=== PATIENT | male | born 1965 | race Caucasian/White ===

== ENCOUNTER 2019-11-27 08:56 | Outpatient (RCR) | payer OTHER, SELFPAY ==
--- NOTE | 2019-11-27 09:41 | PTOPEVAL ---
Thank you for referring this patient to [facility] [place]. Please review, sign, date and return this plan of care [facility]. I agree with and certify that the following plan of care is medically necessary. Referring Physician Date Admitting Provider: Attending Provider: PHYSICIAN NOT ON STAFF Referring Provider: *PT Outpatient Evaluation Start: 11/27/19 09:10 Freq: Status: Active Protocol: Document 11/27/19 09:10 Bunny (Rec: 11/27/19 09:[address] [facility] [id number]) Therapy Assessment Status Assessment Status Assessment Status Evaluation Evaluation Information Problem Diagnosis s/p L4/5 and L5/S1 laminectomy Onset 11/08/19 Additional Evaluation Detail oswestry = 34% Subjective Information patient reports he has been Query Text:As Reported By Patient/ having pain in the low back Family since 01/23/19. he reports he did have a laminectomy of the L4/5 and L5/S1 on 11/08/19. he reports since he woke up from surgery he has noticed improvements in his quality of life and less pain/symptoms in the L LE. he reports he is now coming to therapy for improved core strengthening and some residual pain in the back. he reports he has increased pain with lifting, and increased activities. he reports he is on a 10lb lifting restriction currently. he reports he was having some residual drainage of the Lumbar incision and had an aspiration of the incision last week. Prior Level of Function Comments Additional Prior Level of Function priro to surgery, patient Comments reports he was having numbness in the L LE into the big toe and pain in the low back that limited his activity and quality of life. he reports he is not working currently. Pain Assessment Timing of Pain Assessment Timing of Pain Assessment Assessment Pain Scale Pain Scale Used Numeric (1 - 10) Self Report Pain Assessment Lower Back Reported Pain Level 4 Pain Description Tightness Pain Frequency Acute,Continuous Current Pain Intensity
--- NOTE | 2019-12-11 10:32 | PCPTNOTE ---
patient called and cancelled appt. HENRIK
--- NOTE | 2019-12-13 09:16 | PCPTNOTE ---
12/13/19- pt cancelled apt today. -HM
== END 2019-12-03 17:00 | disposition home or self-care (01) ==
LOC: CHSPT 08:56
DX: Z98.890 Other specified postprocedural states (principal)
CPT/HCPCS: 97014; 97110; 97161; G0283

== ENCOUNTER 2020-04-23 14:52 | Outpatient (RCR) | payer OTHER, SELFPAY ==
--- NOTE | 2020-04-23 15:44 | PTOPEVAL ---
Thank you for referring Ney Saucedo to [facility]. Please review, sign, date and return this plan of care [facility]. I agree with and certify that the following plan of care is medically necessary. Referring Physician Date Admitting Provider: Attending Provider: PHYSICIAN NOT ON STAFF Referring Provider: *PT Outpatient Evaluation Start: 04/23/20 14:59 Freq: Status: Active Protocol: Document 04/23/20 14:59 RUBEN (Rec: 04/23/20 15:33 RUBEN [email or web address]) Therapy Assessment Status Assessment Status Assessment Status Evaluation Evaluation Information Problem Diagnosis s/p left shoulder arthroscopy, rotator cuiff repair and bicep tenodesis Onset 03/07/20 Subjective Information Pt. reports that he underwent Query Text:As Reported By Patient/ rotator cuff repair on 03/07/20 Family . He states that he was taken out of his sling last week. He has been using a CPM at home. He reports that pain is present, but not intense at this time. He states that he can sleep better since surgery . He states that he is no longer taking pain medication. Pt. reports that his goal is to regain normal mobility. 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 Hand Dominance Right Activity of Daily Living Ability Independent Indoor/Home Mobility Independent Community Mobility Independent Stairs Ability Independent Functional Cognition (Planning, Shopping Independent , Taking Medications) Cooking Yes Cleaning Yes Laundry Yes Shopping Yes Driving Yes Pain Assessment Pain Scale Pain Scale Used Numeric (1 - 10) Self Report Pain Assessment Left Shoulder(s) Reported Pain Level 3 Pain Description Aching Pain Frequency Continuous Pain Score Pain Score 3: Self Report Upper Extremity Range of Motion General Upper Extremity Range of Motion Gross Upper Extremity Range of Motion right shoulder flexion 160 Comments left shoulder flexion 132 right shoulder ER 80 left shoulder ER 25 right shoulder IR 72
--- NOTE | 2020-05-19 15:31 | PCPTNOTE ---
patient called and cancelled appt due to not feeling well. HENRIK
== END 2020-06-11 18:00 | disposition home or self-care (01) ==
LOC: CHSPT 14:52
DX: Z47.89 Encounter for other orthopedic aftercare (principal)
CPT/HCPCS: 97014; 97110; 97161; G0283

== ENCOUNTER 2021-09-03 12:35 | Outpatient (CLI) | payer OTHER, SELFPAY ==
[2021-09-03 13:25] LABS: SARS-CoV-2 Ag Negative (Negative)
== END 2021-09-03 12:36 | disposition home or self-care (01) ==
LOC: CHSLAB 12:41
PROVIDERS: PCP Internal Medicine; Visit Provider Internal Medicine
DX: J06.9 Acute upper respiratory infection, unspecified (principal)
CPT/HCPCS: 87426; C9803

== ENCOUNTER 2021-11-09 09:12 | Outpatient (CLI) | payer OTHER, SELFPAY ==
--- NOTE | ~2021-11-09 | XR_ITS ---
XR chest 2V DATE: 11/09/2021 10:00 INDICATION: Heartburn, nausea, chronic migraine headache TECHNIQUE: 2 views COMPARISON: 11/15/2016 2 view chest FINDINGS: Normal heart size. No hilar or mediastinal enlargement. No pulmonary infiltrate or consol idation, pulmonary mass lesion or pneumothorax. No pleural effusion. Status post lower cervical spine anterior surgical fusion. IMPRESSION: No active cardiopulmonary disease Reviewed, dictated and finalized at location B. LANE P[employer]OT PHOTOGRAMMETRY
--- NOTE | ~2021-11-09 | XR_ITS ---
EXAMINATION: XR wrist RT min 3V INDICATION: Right wrist pain TECHNIQUE: Four views of the right wrist are obtained. COMPARISON: None available FINDINGS: There is subtle heterotopic ossification lateral to the distal radius. Bone alignment is no rmal. 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 IMPRESSION: 1. Subtle heterotopic ossification lateral to the distal wrist which could reflect avulsion injury. Reviewed, dictated and finalized at location A. S SMOOTHER IMPRESSION: 1. Subtle heterotopic ossification lateral to the distal wrist which could refl ect avulsion injury.
[2021-11-09 09:25] LABS: Basophils Absolute Auto 0.06 K/mm3 (0.00-0.10); Basophils Percent Auto 0.4 % (0.0-1.0); Eosinophils Absolute Auto 0.06 K/mm3 (0.02-0.50); Eosinophils Percent Auto 0.4 % (1.0-6.0); Hematocrit 46.4 % (40.0-54.0); Hemoglobin 16.7 g/dL (14.0-18.0); Immature Granulocyte Absolute 0.13 K/mm3 (0.00-0.00); Immature Granulocyte Percent A 0.8 % (0.0-0.0); Lymphocytes Absolute Auto 2.66 K/mm3 (1.10-4.50); Lymphocytes Percent Auto 15.8 % (18.0-42.0); Mean Corpuscular Hemoglobin 32.7 pg (27.0-31.0); Mean Corpuscular Volume 90.8 fL (78.0-102.0); Mean Platelet Volume 10.8 fl (8.7-11.0); Monocytes Absolute Auto 1.24 K/mm3 (0.10-0.90); Monocytes Percent Auto 7.4 % (2.0-11.0); Neutrophils Absolute Auto 12.7 K/mm3 (1.7-7.2); Neutrophils Percent Auto 75.2 % (50.0-70.0); Platelet Count Result 242 K/mm3 (150-420); Red Blood Count 5.11 M/mm3 (4.70-6.10); Red Cell Distribution Width 12.6 % (11.6-14.4); White Blood Count 16.9 K/mm3 (4.8-10.8)
--- NOTE | 2021-11-09 09:30 | ECG_ITS ---
Measurements Intervals [place] Rate: 76 P: 67 NE: 132 QRS: 1 QRSD: 93 T: 79 QT: 378 QTc: 428 Interpretive Statements SINUS RHYTHM EARLY PRECORDIAL R/S TRANSITION MINIMAL Q WAVES- HIGH LATERAL LEADS BORDERLINE ST-T WAVE ABNORMALITY- DIFFUSE LEADS BASELINE WANDER- II, III, AVR, AVL, AVF, V1-V3 BORDERLINE ECG Electronically Signed On 11-09-2021 14:01:12 AQUATIC LABORER by Morris Hurd D.O.
[2021-11-09 09:48] LABS: D Dimer 0.46 mg/L (0.19-0.50)
[2021-11-09 09:52] LABS: Alanine Aminotransferase 117 U/L (16-63); Albumin Level 3.7 g/dL (3.4-5.0); Alkaline Phosphatase 67 U/L (46-116); Anion Gap 11 mmol/L (8-16); Aspartate Amino Transferase 55 U/L (15-37); Blood Urea Nitrogen 15 mg/dL (7-18); Calcium 9.4 mg/dL (8.5-10.1); Carbon Dioxide 28 mmol/L (21-32); Chloride 99 mmol/L (98-108); Creatine Kinase 102 U/L (39-308); Estimated Glomerular Filt Rate 58; Glucose 120 mg/dL (70-99); NT Pro B Type Natriuretic Pept 59 pg/mL (0-125); Osmolality Calculated 287 mOsm/kg (285-295); Potassium 3.6 mmol/L (3.5-5.1); Sodium 138 mmol/L (136-145); Total Protein 8.6 g/dL (6.4-8.2); Troponin I 6.1 ng/L (0.00-60.4)
== END 2021-11-09 09:13 | disposition home or self-care (01) ==
LOC: CHSIMG 09:14
PROVIDERS: PCP Internal Medicine; Visit Provider Internal Medicine
DX: R07.9 Chest pain, unspecified (principal); R60.9 Edema, unspecified; M25.531 Pain in right wrist
CPT/HCPCS: 36415; 71046; 73110; 80053; 82550; 82553; 83880; 84484; 85025; 85380; 93005

== ENCOUNTER 2021-11-10 11:20 | Observation (INO) | payer OTHER, SELFPAY ==
--- NOTE | ~2021-11-10 | US_ITS ---
EXAMINATION: US abdomen limited DATE: 11/11/2021 08:19 INDICATION: Epigastric discomfort. TECHNIQUE: Multiple grayscale and Doppler ultrasound images of the abdomen were obtained. COMPARISON: Ultrasound 03/10/2012 FINDINGS: The pancreas is obscured by bowel gas. There is diffuse hepatic steatosis. There is normal flow in main portal vein. The gallbladder is normal in size. No gallstones or gallbladder wall thicke suzy. There was no sonographic Ramirez sign. The common duct is normal and measures 6 mm. IMPRESSION: 1. Diffuse hepatic steatosis. Reviewed, dictated and finalized at location A. OTIONS DIRECTOR
--- NOTE | ~2021-11-10 | XR_ITS ---
EXAMINATION: XR chest 2V DATE: 11/10/2021 15:05 INDICATION: Cough. Headache. TECHNIQUE: Frontal and lateral views of the chest were obtained. COMPARISON: Chest 2 views 11/09/2021, chest CT 11/16/2016 FINDINGS: The chest demonstrates clear lungs without pneumonia, pleural effusion, or pneumothorax. Th e heart size is normal. There are changes of anterior fusion procedure in cervical spine. IMPRESSION: 1. No acute cardiopulmonary disease. Reviewed, dictated and finalized at location A. JEWELRY SALES ASSOCIATE
--- NOTE | ~2021-11-10 | CT_ITS ---
EXAMINATION: CT brain wo con INDICATION: Headache COMPARISON: 09/05/2018 TECHNIQUE: Standard unenhanced head CT. The dose-length product (DLP) was 605.33 mGy-cm. The mA was a djusted according to patient size. Iterative reconstruction technique was employed. FINDINGS: There is no intracranial hemorrhage, acute infarction, or abnormal mass lesion. The ventric les are normal. There is no abnormal mass effect or midline shift. The kennedy-white matter differentiat ion is normal. The basal cisterns are patent. Hours The orbits are normal. The paranasal sinuses, mas toids and calvarium are normal. IMPRESSION: 1. No acute intracranial abnormality. Reviewed, dictated and finalized at location A. RIG DRILLER
[2021-11-10 11:22] VITALS: BP 152/84; PULSE 79; RESP 18; TEMP 36.4; O2SAT 99
--- NOTE | 2021-11-10 12:59 | ED.HA ---
HPI - Headache General Chief Complaint: Headache Stated Complaint: migraines Time Seen by Provider: 11/10/21 12:50 Source: patient Mode of arrival: ambulatory Limitations: no limitations History of Present Illness HPI Narrative: Patient is a 56-year-old male complaining of a migraine headache that started last week after he was placed on Ozempic for weight loss. Patient states that he was advised by his PCP to stop the Ozempic and his migraine resolved, but this week his doctor said to start on a lower dose and migraine recurred again, so he was advised to completely stop it. Patient states that he has a history of migraines, and this is her typical headache. Patient denies any speech or visual disturbance, focal weakness or numbness, unsteady gait, dizziness, neck pain or stiffness, fever or chills. Patient denies any chest pain, shortness of breath, nausea, vomiting or diaphoresis. Related Data Home Medications Medication Instructions Recorded Confirmed allopurinol 300 mg PO DAILY 10/22/21 10/22/21 duloxetine 30 mg PO DAILY 10/22/21 10/22/21 erenumab-aooe [Aimovig 140 mg SUBCUT WEEKLY 10/22/21 10/22/21 Autoinjector] irbesartan 300 mg PO DAILY 10/22/21 10/22/21 meloxicam 7.5 mg PO DAILY 10/22/21 10/22/21 semaglutide [Ozempic] 0.25 mg SUBCUT WEEKLY 10/22/21 10/22/21 sertraline 100 mg PO DAILY 10/22/21 10/22/21 Allergies Allergy/AdvReac Type Severity Reaction Status Date / Time meperidine Allergy Severe Anaphylactic Verified 10/22/21 14:30 Shock morphine AdvReac Mild Nausea and Verified 10/22/21 14:30 Vomiting Review of Systems Review of Systems: All systems reviewed & are unremarkable except as noted in HPI and below Constitutional: Constitutional: Denies body ache(s), Denies chills, Denies excessive sweating, Denies fatigue, Denies fever(s), Denies headache(s), Denies lethargy, Denies malaise, Denies weakness and Denies weight loss Eyes: Eyes: Denies blurry vision, Denies change in vision and Denies loss of vision ENT: Denies dizziness, Denies ear discharge, Denies headache(s), Denies lip swelling, Denies epistaxis, Denies nasal congestion, Denies neck pain, Denies throat swelling and Denies tongue swelling Cardiovascular: Cardiovascular: Denies chest pain, Denies chest pain at rest, Denies chest pain with activity, Denies diaphoresis, Denies rapid heart rate, Denies edema, Denies irregular heart rhythm, Denies lightheadedness, Denies palpitations, Denies dyspnea and Denies dyspnea on exertion Respiratory: Respiratory: Denies chest congestion, Denies cough, Denies hemoptysis, Denies dyspnea and Denies dyspnea on exertion Gastrointestinal: Gastrointestinal: Denies abdominal pain, Denies melena, Denies hematochezia, Denies diarrhea, Denies nausea, Denies vomiting and Denies hematemesis Musculoskeletal: Musculoskeletal: Denies abnormal gait, Denies deformity, Denies joint swelling, Denies limited range of motion, Denies neck pain and Denies numbness Neurologic: Denies Abnormal speech present, Denies abnormal gait, Denies confusion, Denies dizziness, Denies focal weakness, Denies loss of vision, Denies numbness, Denies Other visual disturbances, Denies Sensory deficit (Neuro) and Denies weakness Psychiatric: Psychiatric: Denies confusion, Denies depression, Denies auditory hallucinations, Denies homicidal ideation and Denies suicidal ideation Endocrine: Endocrine: Denies cold intolerance, Denies excessive sweating, Denies fatigue, Denies heat intolerance and Denies palpitations Hematologic/Lymphatic: Hematologic/Lymphatic: Denies easy bleeding and Denies easy bruising Allergic/Immunologic: Allergic/Immunologic: Denies lip swelling, Denies throat swelling and Denies tongue swelling [facility] Social History Social History Smoking status: Never smoker Alcohol intake: current Drinks per week: 1 Substance use: never Substance use type: does not use Spiritu
[2021-11-10] MEDS: diphenhydrAMINE HCl INJ 50 MG/ML VIAL 25 MG IV PUSH (13:08)
[2021-11-10] MEDS: LACTATED RINGERS 1,000 ML 999 ML IV CONT (13:08)
[2021-11-10] MEDS: METOCLOPRAMIDE HCL INJ 10 MG/2 ML VIAL IV PUSH (13:09)
[2021-11-10 13:39] LABS: Basophils Absolute Auto 0.1 K/mm3 (0.0-0.1); Basophils Percent Auto 0.4 % (0.2-1.2); Eosinophils Percent Auto 0.2 % (0-4.4); Hematocrit 43.4 % (42.0-52.0); Hemoglobin 15.3 g/dL (14.0-18.0); Immature Granulocyte Percent A 0.8 % (0-0.5); Lymphocytes Absolute Auto 1.98 K/mm3 (0.9-3.2); Lymphocytes Percent Auto 15.8 % (18.3-44.2); Mean Corpuscular HGB Conc 35.3 g/dl (32-36); Mean Corpuscular Volume 93.7 fl (80-100); Mean Platelet Volume 11.2 fl (7.4-10.4); Monocytes Absolute Auto 0.6 K/mm3 (0.1-0.6); Monocytes Percent Auto 4.4 % (2.6-8.5); Neutrophils Absolute Auto 9.9 K/mm3 (1.3-6.7); Neutrophils Percent Auto 78.4 % (45.5-73.1); Platelet Count Result 203 k/mm3 (150-375); Red Blood Count 4.63 M/mm3 (4.6-6.20); Red Cell Distribution Width 13.1 % (11.5-14.5); White Blood Count 12.6 K/mm3 (4.5-10.0)
[2021-11-10 13:56] LABS: Alanine Aminotransferase 116 U/L (4-50); Albumin Level 4.3 g/dL (3.5-5.1); Alkaline Phosphatase 65 U/L (38-126); Anion Gap 9 mmol/L (8-16); Aspartate Amino Transferase 68 U/L (17-59); Blood Urea Nitrogen 18 mg/dL (9-20); Calcium 9.3 mg/dL (8.4-10.2); Carbon Dioxide 29 mmol/L (22-30); Chloride 101 mmol/L (98-107); Estimated CRCL calculation 99 ml/min; Estimated Glomerular Filt Rate > 60; Glucose 107 mg/dL (65-110); Potassium 4.4 mmol/L (3.4-5.0); Sodium 139 mmol/L (137-145)
[2021-11-10] MEDS: KETOROLAC 30 MG/ML VIAL (*BKC) IV PUSH (14:11)
--- NOTE | 2021-11-10 14:52 | ECG_ITS ---
Measurements Intervals [place] Rate: 63 P: 59 MO: 148 QRS: 5 QRSD: 90 T: 53 QT: 416 QTc: 428 Interpretive Statements SINUS RHYTHM EARLY PRECORDIAL R/S TRANSITION BORDERLINE ST-T WAVE ABNORMALITY- HIGH LATERAL LEADS BASELINE ARTIFACT- I, III, AVR, AVL, AVF BORDERLINE ECG Electronically Signed On 11-10-2021 15:45:38 FIELD SEISMOLOGIST by Morris Hurd D.O.
[2021-11-10 15:53] LABS: Troponin I < 0.012 ng/mL (0.000-0.034)
[2021-11-10 16:30] LABS: Troponin I < 0.012 ng/mL (0.000-0.034)
[2021-11-10 18:05] VITALS: BP 152/76; PULSE 78; RESP 18; O2SAT 99
[2021-11-10 19:21] LABS: Troponin I < 0.012 ng/mL (0.000-0.034)
[2021-11-10 19:36] VITALS: BP 152/91; PULSE 63; RESP 18; O2SAT 99
[2021-11-10 21:00] VITALS: PULSE 63; RESP 18; O2SAT 99; BMI 57.3
--- NOTE | 2021-11-10 21:05 | ADMGEN ---
This patient, Ney Saucedo, was admitted to [facility] as an IMU overflow at 2049. Patient/family oriented to hospital policies and general routines including ID bracelet, bed and alarms, visiting hours, pain management, procedures, bathroom and other care routines, personal items, smoking policy, room service/diet, and visiting hours. Information on how to activate the Rapid Response Team has been discussed. Patient/Family are encouraged to report perceived risks to care and to ask questions if they do not understand what they are told or what they should do.
[2021-11-10 22:00] VITALS: PULSE 62
[2021-11-10] MEDS: LIDOCAINE HCL 2% VISC SOLN 15 ML UDC PO (22:08)
[2021-11-10] MEDS: MAG HYDROX/AL HYDROX/SIMETH 30 ML UDC PO (22:08)
[2021-11-10] MEDS: BELLADONNA ALK/PHENOB ELIXIR 10 ML PO (22:08)
[2021-11-10] MEDS: LACTATED RINGERS 1,000 ML 125 ML IV CONT (22:11)
--- NOTE | 2021-11-10 23:25 | PM.IMHP ---
H&P: HPI History of Present Illness Date/Time: 11/10/21 23:25 this is a 56-year-old obese patient that started taking Ozempic in August for weight loss. Every 2 weeks able to increase his dosages. And the patient stated that the increased his dose recently and he had an upset stomach from that dose. He did go to his primary doctor and explained this to his physician. However they decided to try another dose to see if the Ozempic would upset the stomach again. The patient stated that he got sick to stomach just within the 1st couple hours after receiving Ozempic. The patient is also complaining of a migraine headache that started this past week after being placed on higher dose of Ozempic. The patient was given a GI cocktail which did not help much at all. The patient stated he received Toradol in the emergency room which did seem to help some. The patient is on Pepcid and pantoprazole daily. The patient's cardiac enzymes are negative x3. The patient has epigastric discomfort as well as tenderness. Chest x-ray was read as no acute cardiopulmonary disease. Head CT was obtained since the patient was complaining about a migraine. His head CT showed no acute intracranial abnormality. Yesterday the patient had an x-ray of his right wrist shows subtle heterotopic ossification lateral to the distal wrist which could reflect evolution injury. His white count is down to 12.6 from 16.9 yesterday. The patient's EKG was read as early precordial RS transition. Borderline ST T wave abnormality. The patient is being admitted to observation status on the date of service 11/10/2021 Chief Complaint: Epigastric pain Review of Systems Review of Systems: All systems reviewed & are unremarkable except as noted in HPI and below Constitutional: Constitutional: Reports as per HPI and Reports no additional constitutional complaints Eyes: Eyes: Reports as per HPI and Reports no additional eye complaints ENT: Reports system reviewed and no additional complaints, except as documented and Reports Normal hearing present Cardiovascular: Cardiovascular: Reports no additional cardiovascular complaints Respiratory: Respiratory: Reports no additional respiratory complaints and Reports no additional respiratory complaints Gastrointestinal: Gastrointestinal: Reports as per HPI and Reports no additional gastrointestinal complaints Musculoskeletal: Musculoskeletal: Reports no additional musculoskeletal complaints Integumentary/Breasts: Skin/Breast: Reports system reviewed and no additional complaints, except as docu and Reports as per HPI Neurologic: Reports system reviewed and no additional complaints, except as documented, Reports as per HPI and Reports Normal hearing present Psychiatric: Psychiatric: Reports no additional psychiatric complaints and Reports as per HPI Endocrine: Endocrine: Reports no additional endocrine complaints Hematologic/Lymphatic: Hematologic/Lymphatic: Reports no additional hematologic/lymphatic complaints Allergic/Immunologic: Allergic/Immunologic: Reports no additional allergic/immunologic complaints [facility] Past Medical History Medical History (Updated 11/10/21 @ 23:36 by Cici Gramajo NP) Chronic GERD Depression with anxiety Gout Hypertension Obesity BMI 57.4 Obstructive sleep apnea Surgical History Surgical History (Updated 11/10/21 @ 23:35 by Cici Gramajo NP) H/O cervical spine surgery H/O rhinoplasty History of tonsillectomy Total knee replacement status Family History Family History Mother Colon cancer Mitral valve replaced Hypertension Macular degeneration Father Malignant neoplasm of prostate Social History Social History (Updated 11/10/21 @ 23:37 by Cici Gramajo NP) Social History: The patient lives with his and has 1 child. 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
[2021-11-10 23:50] VITALS: O2SAT 97
[2021-11-11] VITALS (16 sets, daily range): BP systolic 110–153; BP diastolic 71–95; PULSE 60–105; RESP 13–94; TEMP 35.7–36.9; O2SAT 24–97
[2021-11-11] MEDS: KETOROLAC 15 MG/ML VIAL (*BKC) IV PUSH (00:20)
[2021-11-11] MEDS: LACTATED RINGERS 1,000 ML 125 ML IV CONT ×2 (06:01→13:18)
[2021-11-11 06:22] LABS: Basophils Absolute Auto 0.1 K/mm3 (0.0-0.1); Basophils Percent Auto 0.6 % (0.2-1.2); Eosinophils Absolute Auto 0.1 K/mm3 (0-0.3); Eosinophils Percent Auto 0.5 % (0-4.4); Hematocrit 41.5 % (42.0-52.0); Hemoglobin 14.7 g/dL (14.0-18.0); Immature Granulocyte Percent A 0.9 % (0-0.5); Lymphocytes Absolute Auto 2.93 K/mm3 (0.9-3.2); Lymphocytes Percent Auto 26.4 % (18.3-44.2); Mean Corpuscular HGB Conc 35.4 g/dl (32-36); Mean Corpuscular Hemoglobin 33.3 pg (26-34); Mean Corpuscular Volume 93.9 fl (80-100); Mean Platelet Volume 10.8 fl (7.4-10.4); Monocytes Percent Auto 8.7 % (2.6-8.5); Neutrophils Percent Auto 62.9 % (45.5-73.1); Platelet Count Result 175 k/mm3 (150-375); Red Blood Count 4.42 M/mm3 (4.6-6.20); Red Cell Distribution Width 13.1 % (11.5-14.5); White Blood Count 11.1 K/mm3 (4.5-10.0)
[2021-11-11 06:38] LABS: Lactic Acid Reflex 0.8 mmol/L (0.7-2.1)
[2021-11-11 06:42] LABS: Alanine Aminotransferase 135 U/L (4-50); Alkaline Phosphatase 61 U/L (38-126); Anion Gap 12 mmol/L (8-16); Aspartate Amino Transferase 87 U/L (17-59); Bilirubin,Total 1.4 mg/dL (0.2-1.3); Blood Urea Nitrogen 23 mg/dL (9-20); Calcium 8.9 mg/dL (8.4-10.2); Carbon Dioxide 25 mmol/L (22-30); Chloride 101 mmol/L (98-107); Estimated CRCL calculation 99 ml/min; Estimated Glomerular Filt Rate > 60; Glucose 105 mg/dL (65-110); Lactate Dehydrogenase 412 U/L (313-618); Lipase 123 U/L (23-300); Magnesium 2.3 mg/dL (1.6-2.3); Potassium 3.8 mmol/L (3.4-5.0); Sodium 138 mmol/L (137-145)
[2021-11-11 06:43] LABS: D Dimer < 0.27 ug/mL (<0.48)
[2021-11-11 08:06] LABS: Free T4 Free Thyroxine Reflex 0.99 ng/dL (0.78-2.19)
[2021-11-11 09:00] LABS: Total Triiodothyronine (T3) 1.22 NG/ML (0.97-1.69)
[2021-11-11] MEDS: PANTOPRAZOLE SODIUM IV 40 MG VIAL IV PUSH ×2 (09:21→20:47)
[2021-11-11] MEDS: allopurinoL 300 MG TABLET PO (09:22)
[2021-11-11] MEDS: DULoxetine HCL 30 MG CAPSULE.DR PO (09:22)
[2021-11-11] MEDS: FAMOTIDINE 20 MG TABLET 40 MG PO (09:22)
[2021-11-11] MEDS: predniSONE 20 MG TABLET PO (09:22)
[2021-11-11] MEDS: SERTRALINE HCL 50 MG TABLET 100 MG PO (09:22)
[2021-11-11] MEDS: IRBESARTAN 150 MG TABLET 300 MG PO (09:22)
[2021-11-11] MEDS: ENOXAPARIN 40 MG/0.4 ML SYRINGE SUB-Q (09:23)
[2021-11-11] MEDS: HYDROmorphone HCL INJ (*CRX) 1 MG/ML SYR IV PUSH (09:33)
[2021-11-11] MEDS: CALCIUM CARBONATE (TUMS) 500 MG (200 MG ELEMENTAL) PO ×2 (09:33→16:01)
[2021-11-11] MEDS: ACETAMINOPHEN/BUTALBITAL/CAFFEINE 325-50-40 MG TABLET (FIORICET) 1 TAB PO (13:18)
--- NOTE | 2021-11-11 14:07 | PM.IMPN ---
Progress Note: A&P Assessment and Plan (1) Chest pain: Qualifiers: Chest pain type: unspecified Qualified Code(s): R07.9 - Chest pain, unspecified Code(s): R07.9 - Chest pain, unspecified Status: Acute Assessment and Plan: Cardiac enzymes are negative. Pt complains of heart burn heaviness in chest order IV reglan iv protonix Consult cardiology as pt had Abnl EKG on admission Pt had GI cocktail without relief (2) Migraine: Qualifiers: Intractability: not intractable Migraine type: unspecified Status migrainosus presence: without status migrainosus Qualified Code(s): G43.909 - Migraine, unspecified, not intractable, without status migrainosus Code(s): G43.909 - Migraine, unspecified, not intractable, without status migrainosus Status: Acute Assessment and Plan: Pt had toradol and dilaudid without relief (3) Gout: Code(s): M10.9 - Gout, unspecified Status: Chronic Assessment and Plan: Continue with allopurinol (4) Obesity: Code(s): E66.9 - Obesity, unspecified Status: Chronic Assessment and Plan: Going to hold Ozempic for now. (5) Chronic GERD: Code(s): K21.9 - Gastro-esophageal reflux disease without esophagitis Status: Chronic Assessment and Plan: Continue with pantoprazole. (6) Obstructive sleep apnea: Code(s): G47.33 - Obstructive sleep apnea (adult) (pediatric) Status: Chronic Assessment and Plan: Auto titrate CPAP (7) Depression with anxiety: Code(s): F41.8 - Other specified anxiety disorders Status: Chronic Assessment and Plan: Continue with duloxetine and sertraline (8) Hypertension: Code(s): I10 - Essential (primary) hypertension Status: Chronic Assessment and Plan: Continue with irbesartan. Subjective Date/time seen: 11/11/21 14:07 Interval history: 56-year-old obese patient that started taking Ozempic in August for weight loss. Every 2 weeks able to increase his dosages. And the patient stated that the increased his dose recently and he had an upset stomach from that dose. He did go to his primary doctor and explained this to his physician. Pt is having severe migraine headache and severe chest pain like a heaviness pt describes it like heart burn Review of Systems Review of Systems: All systems reviewed & are unremarkable except as noted in HPI and below Exam Const: General: cooperative and healthy appearing; No in distress Nutritional Appearance: obese morbidly obese Orientation/consciousness: oriented to person HENMT: Head: normal to inspection Resp: Effort & Inspection: no respiratory distress Auscultation: no rhonchi and no wheezes Cardio: Rate: regular rate Rhythm: regular rhythm GI: Inspection: normal to inspection GI Palp: No abdominal tenderness, No Guarding due to palpation present (GI) and No Hepatomegaly present Auscultation: normal bowel sounds Neuro: General: oriented to person Objective Data Vital Signs Vital Signs: Vital Signs - 24 hr 11/10/21 18:05 11/10/21 19:36 11/10/21 21:00 Temperature Pulse Rate 78 63 63 Respiratory Rate 18 18 18 Blood Pressure 152/76 H 152/91 H Pulse Oximetry 99 99 99 11/10/21 22:00 11/10/21 23:50 11/11/21 00:00 Temperature 36.9 C Pulse Rate 62 63 Respiratory Rate 15 Blood Pressure 153/85 H Pulse Oximetry 97 96 11/11/21 02:00 11/11/21 04:00 11/11/21 06:00 Temperature 36.7 C Pulse Rate 74 72 75 Respiratory Rate 15 Blood Pressure 138/81 Pulse Oximetry 95 11/11/21 08:00 11/11/21 10:00 11/11/21 12:28 Temperature 36.6 C 35.7 C L Pulse Rate 79 72 75 Respiratory Rate 18 13 Blood Pressure 147/95 H 130/76 Pulse Oximetry 95 94 Intake/Output Intake/Output: Intake & Output 11/08/21 11/09/21 11/10/21 11/11/21 23:59 23:59 23:59 23:59 Intake Total 1000 2730 Output Total 30 Balance 1000 2700 M
[2021-11-11] MEDS: SUMAtriptan SUCCINATE 25 MG TABLET 50 MG PO (16:00)
[2021-11-11] MEDS: METOCLOPRAMIDE HCL INJ 10 MG/2 ML VIAL IV PUSH (16:02)
--- NOTE | 2021-11-11 18:18 | PC.NURSE ---
1630-after imitrex administration, ice pack to the lower posterior head, reglan and tums, pt is feeling better. Heart burn is gone and migraine is rating at a 5/10 and throbbing.
[2021-11-12] VITALS (9 sets, daily range): BP systolic 144–180; BP diastolic 55–95; PULSE 60–82; RESP 15–19; TEMP 35.9–37.1; O2SAT 94–100
[2021-11-12] MEDS: METOCLOPRAMIDE HCL INJ 10 MG/2 ML VIAL IV PUSH ×3 (00:41→13:15)
[2021-11-12] MEDS: PANTOPRAZOLE SODIUM IV 40 MG VIAL IV PUSH (08:54)
[2021-11-12] MEDS: ENOXAPARIN 40 MG/0.4 ML SYRINGE SUB-Q (08:54)
[2021-11-12] MEDS: FAMOTIDINE 20 MG TABLET 40 MG PO (08:55)
[2021-11-12] MEDS: DULoxetine HCL 30 MG CAPSULE.DR PO (08:55)
[2021-11-12] MEDS: SERTRALINE HCL 50 MG TABLET 100 MG PO (08:55)
[2021-11-12] MEDS: predniSONE 20 MG TABLET PO (08:56)
[2021-11-12] MEDS: IRBESARTAN 150 MG TABLET 300 MG PO (08:56)
[2021-11-12] MEDS: allopurinoL 300 MG TABLET PO (08:56)
--- NOTE | 2021-11-12 09:19 | ECHO_ITS ---
Patient Info Name: Ney Saucedo Age: 56 years : 1965 Gender: Male Ht: 69 in Wt: 388 lbs BSA: 3.03 m2 HR: 74 bpm BP: 180 / 55 mmHg Heart Rhythm: Sinus Rhythm Exam Date: 11/12/2021 12:31 PM Exam Location: [facility] Patient Status: Outpatient Admit Date: 11/10/2021 Staff Ordering Physician: Eric Lozano MD Signal Operator Technical: Laith Ramirez, GILLIAN, RT Attending Provider: Uzma Ascencio MD Referring Physician: Marta MOLINA; Exam Type: CA echo dop color flow w con Study Info Indications I10 - Essential (primary) hypertension Complete two-dimensional, color flow and Doppler transthoracic echocardiogram is performed with contrast to opacify the left ventricle and to improve the deliniation of the left ventricle endocardial borders. Summary 1. Technically difficult study with limited views. Definity contrast used. Regional wall motion assessment limited due to poor endomyocardial border definition, however, no wall motion abnormalities identified. 2. Left ventricular chamber dimension is normal. 3. Left ventricular systolic function is normal, estimated at 60-65%. 4. There is borderline mildly increased left ventricular wall thickness. 5. The left ventricular diastolic function is grade I diastolic dysfunction. 6. There is no aortic valve stenosis. 7. Unable to estimate PA systolic pressure due to poor spectral resolution of tricuspid regurgitant jet velocity. Left Ventricle Left ventricular chamber dimension is normal. Left ventricular systolic function is normal, estimated at 60-65%. There is borderline mildly increased left ventricular wall thickness. The left ventricular diastolic function is grade I diastolic dysfunction. Technically difficult study with limited views. Definity contrast used. Regional wall motion assessment limited due to poor endomyocardial border definition, however, no wall motion abnormalities identified. Right Ventricle Right ventricular chamber dimension is not well visualized. Left Atria Left atrial chamber dimension is mildly enlarged. Right Atria Right atrial chamber dimension is not well visualized. Aortic Valve The aortic valve is not well visualized. There is no aortic valve stenosis. There is no aortic valve regurgitation. Mitral Valve The mitral valve has normal leaflets. There is no mitral valve regurgitation. Tricuspid Valve The tricuspid valve leaflets are not well visualized. Unable to estimate PA systolic pressure due to poor spectral resolution of tricuspid regurgitant jet velocity. Pericardium/Pleural The pericardium appears not well visualized. There is small pericardial effusion. Aorta The aortic root size at the sinus of Valsalva is normal. Left Ventricular Outflow Tract Name Value Normal LVOT 2D LVOT Diameter 2.03 cm LVOT Doppler LVOT Peak Gradient 7 mmHg LVOT Mean Gradient 3 mmHg LVOT VTI 27.38 cm LVOT VTI/AV VTI Ratio 0.99 LVOT Stroke Volume 88.56 ml LVOT CO 6.67 l/m
--- NOTE | 2021-11-12 09:19 | PM.CNCAR ---
Assessment and Plan Assessment and plan (1) Chest pain: Qualifiers: Chest pain type: other chest pain Qualified Code(s): R07.89 - Other chest pain Code(s): R07.9 - Chest pain, unspecified Status: Acute Assessment and Plan: Atypical, consistent with patient's description of acid reflux exacerbated by use of Ozempic. Symptoms exacerbated lying down and occasionally after meals never with exertion. Chest pain resolved but patient is cleared to clarify he never had chest pain only his acid reflux but described it extending up lower to mid chest. Ruled out for myocardial infarction with negative serial cardiac enzymes. Negative stress test 01/11/2018. Telemetry unremarkable. No indication for repeat ischemic evaluation at this time. Will obtain 2D echocardiogram to assess LV function, wall motion abnormality, pulmonary pressures and valve pathology. Discharge per hospitalist service and a significant new or unexpected abnormality noted on echocardiogram. Patient may follow up with his PCP as an outpatient for further medical management otherwise. All questions answered to patient's satisfaction. Patient agrees with plan of care as outlined. Check lipid panel. (2) Chronic GERD: Code(s): K21.9 - Gastro-esophageal reflux disease without esophagitis Status: Chronic Assessment and Plan: Per primary service. Discontinue Ozempic. PPI. Avoidance of exacerbated. Follow-up with PCP in this regard. (3) Medication side effects: Code(s): T88.7XXA - Unspecified adverse effect of drug or medicament, initial encounter Status: Acute Assessment and Plan: Ozempic appears to have contributed to excessive migraine and exacerbation observed symptoms (4) Hypertension: Qualifiers: Hypertension type: primary hypertension Qualified Code(s): I10 - Essential (primary) hypertension Code(s): I10 - Essential (primary) hypertension Status: Chronic Assessment and Plan: Fair control overall. Continue antihypertensive therapy. (5) ELAINE on CPAP: Code(s): G47.33 - Obstructive sleep apnea (adult) (pediatric); Z99.89 - Dependence on other enabling machines and devices Status: Acute Assessment and Plan: Compliance with CPAP. (6) Morbid obesity with BMI of 50.0-59.9, adult: Code(s): E66.01 - Morbid (severe) obesity due to excess calories; Z68.43 - Body mass index [BMI] 50.0-59.9, adult Status: Acute Assessment and Plan: Lifestyle modification and weight loss and exercise counseling. (7) Abnormal LFTs: Code(s): R79.89 - Other specified abnormal findings of blood chemistry Status: Acute Assessment and Plan: Management per primary service. Abdominal ultrasound consistent with diffuse hepatic steatosis. Caution with statin if indicated. History of Present Illness History of Present Illness Consult date/time: Date of service: 11/12/21 09:19 Cardiology consultation at the request of Dr. Ascencio of the [facility] service for opinion regarding complaints of chest pain. Requesting physician: Uzma Ascencio MD Consult reason: chest pain Reason For Visit: Chest Pain, Migraine Headache Narrative: Patient is a very pleasant 56-year-old male with a past medical history significant for hypertension, morbid obesity, ELAINE on CPAP who states he was started on Ozempic for weight loss in August of 2021. He reiterates that he does not have a diagnosis of diabetes and was started on this medication only for weight loss. States he tolerated it well initially at lower doses and had lost approximately 20 lb overall. He states once he got to 1 mg dosing he had severe headaches and exacerbation of his GERD symptoms with upset stomach. He denies morro chest pain at any time other than his more intense acid reflux symptoms which are exacerbated with lying down, meals and particularly within 2 hours after taking Ozempic
[2021-11-12 10:20] LABS: Cholesterol 166 mg/dL (0-200); HDL Direct 28 mg/dL; Triglycerides 148 mg/dL (<150)
[2021-11-12 10:31] LABS: LDL Cholesterol Direct 93 mg/dL
--- NOTE | 2021-11-12 12:45 | PM.IMPN ---
Progress Note: A&P Assessment and Plan (1) Chest pain: Qualifiers: Chest pain type: other chest pain Qualified Code(s): R07.89 - Other chest pain Code(s): R07.9 - Chest pain, unspecified Status: Acute Assessment and Plan: Cardiac enzymes are negative. Pt complains of heart burn heaviness in chest order IV reglan iv protonix Consult cardiology as pt had Abnl EKG on admission Pt had GI cocktail without relief (2) Migraine: Qualifiers: Intractability: not intractable Migraine type: unspecified Status migrainosus presence: without status migrainosus Qualified Code(s): G43.909 - Migraine, unspecified, not intractable, without status migrainosus Code(s): G43.909 - Migraine, unspecified, not intractable, without status migrainosus Status: Acute Assessment and Plan: Pt had toradol and dilaudid without relief (3) Gout: Code(s): M10.9 - Gout, unspecified Status: Chronic Assessment and Plan: Continue with allopurinol (4) Obesity: Code(s): E66.9 - Obesity, unspecified Status: Chronic Assessment and Plan: Going to hold Ozempic for now. (5) Chronic GERD: Code(s): K21.9 - Gastro-esophageal reflux disease without esophagitis Status: Chronic Assessment and Plan: Continue with pantoprazole. (6) Obstructive sleep apnea: Code(s): G47.33 - Obstructive sleep apnea (adult) (pediatric) Status: Chronic Assessment and Plan: Auto titrate CPAP (7) Depression with anxiety: Code(s): F41.8 - Other specified anxiety disorders Status: Chronic Assessment and Plan: Continue with duloxetine and sertraline (8) Hypertension: Qualifiers: Hypertension type: primary hypertension Qualified Code(s): I10 - Essential (primary) hypertension Code(s): I10 - Essential (primary) hypertension Status: Chronic Assessment and Plan: Continue with irbesartan. Additional Plan 11/12/2021 Cardiology consult noted. Plan is to continue current treatment check echo report if stays okay will discharge home in the morning. Patient is advised to hold off on Ozempic as according to the patient all the symptoms started after he started taking Ozempic. Subjective Date/time seen: 11/12/21 12:45 Interval history: 11/12/2021 Patient was seen during the morning rounds today. No shortness of breath or chest pain. Headache is better. No abdominal pain, nausea, no vomiting. Mood stable. Review of Systems Review of Systems: All systems reviewed & are unremarkable except as noted in HPI and below Constitutional: Constitutional: Reports as per HPI and Reports no additional constitutional complaints Eyes: Eyes: Reports as per HPI and Reports no additional eye complaints ENT: Reports system reviewed and no additional complaints, except as documented and Reports Normal hearing present Cardiovascular: Cardiovascular: Reports no additional cardiovascular complaints Respiratory: Respiratory: Reports no additional respiratory complaints and Reports no additional respiratory complaints Gastrointestinal: Gastrointestinal: Reports as per HPI and Reports no additional gastrointestinal complaints Musculoskeletal: Musculoskeletal: Reports no additional musculoskeletal complaints Integumentary/Breasts: Skin/Breast: Reports system reviewed and no additional complaints, except as docu and Reports as per HPI Neurologic: Reports system reviewed and no additional complaints, except as documented, Reports as per HPI and Reports Normal hearing present Psychiatric: Psychiatric: Reports no additional psychiatric complaints and Reports as per HPI Endocrine: Endocrine: Reports no additional endocrine complaints Hematologic/Lymphatic: Hematologic/Lymphatic: Reports no additional hematologic/lymphatic complaints Allergic/Immunologic: Allergic/Immunologic: Reports no additional allergic/immunologic comp
[2021-11-12] MEDS: PERFLUTREN LIPID MICROSPHERES 1.5 ML VIAL DILUTED TO 10 ML TOTAL VOLUME IV PUSH (12:46)
--- NOTE | 2021-11-12 12:46 | IVDEFINITY ---
Prior to administration of IV Definity the patient was educated on the risks and benefits of the imaging enhancing agent including potential adverse side effects. The patient verbalized understanding. Allergies were verified. No exclusion criteria were identified and at least one of the following inclusion criteria were met: 1) physician request, 2) patient technically difficult to image (per the [place] [employer] guidelines of two or more segments not discernable within the apical view), or 3) questionable left ventricular function. ?
--- NOTE | 2021-11-12 12:47 | WPDNEURCNPN ---
Assessment and Plan Additional Plan 1 recurrent migraine 2 associated comorbid tension headaches as well 3 aggravation by the medication abdulaziz BUSTAMANTE Consult date: 11/12/21 HPI: Ney Saucedo is a 56 year old male admitted to the hospital for the complaints of migraine headaches is starting last week after he was placed on ozempic, which was subsequently discontinued his headache improved by the meds restarted and the headache came back he gave no history of associated any neurological symptomatology, he has been taking allopurinol 300 mg daily and duloxetine 30 mg daily in addition to sertraline 100 mg daily as an outpatient is never a smoker current alcohol intake or 1 drink per week Review of Systems Review of Systems: All systems reviewed & are unremarkable except as noted in HPI and below PMFSH Past Medical History Medical History Chronic GERD Depression with anxiety Gout Hypertension Obesity BMI 57.4 Obstructive sleep apnea Surgical History Surgical History H/O cervical spine surgery H/O rhinoplasty History of tonsillectomy Total knee replacement status Family History Family History Mother Colon cancer Mitral valve replaced Hypertension Macular degeneration Father Malignant neoplasm of prostate Social History Social History Social History: The patient lives with his and has 1 child. 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 His is the durable power insurance attorney for healthcare. The patient is lifelong nonsmoker. He does not use any alcohol marijuana or illicit drugs. Code status full code Smoking status: Never smoker Alcohol intake: current Drinks per week: 1 Substance use: never Substance use type: does not use Spiritual care concerns: No Meds Home Medications and Allergies Home Medications Medication Instructions Recorded Confirmed Type allopurinol 300 mg PO DAILY 10/22/21 11/10/21 History duloxetine 30 mg PO DAILY 10/22/21 11/10/21 History erenumab-aooe [Aimovig 140 mg SUBCUT MONTHLY 10/22/21 11/10/21 History Autoinjector] irbesartan 300 mg PO DAILY 10/22/21 11/10/21 History meloxicam 7.5 mg PO DAILY 10/22/21 11/10/21 History semaglutide [Ozempic] 0.25 mg SUBCUT WEEKLY 10/22/21 11/10/21 History sertraline 100 mg PO DAILY 10/22/21 11/10/21 History famotidine 40 mg PO DAILY 11/10/21 11/10/21 History pantoprazole 40 mg PO DAILY 11/10/21 11/10/21 History prednisone 20 mg PO DAILY 11/10/21 11/10/21 History promethazine 25 mg PO DAILY 11/10/21 11/10/21 History Allergies Allergy/AdvReac Type Severity Reaction Status Date / Time meperidine Allergy Severe Anaphylactic Verified 10/22/21 14:30 Shock morphine AdvReac Mild Nausea and Verified 10/22/21 14:30 Vomiting Vital Signs Vital Signs - 24 hr 11/11/21 14:00 11/11/21 15:47 11/11/21 16:00 Temperature Pulse Rate 72 69 72 Respiratory Rate 24 H Blood Pressure Pulse Oximetry 96 11/11/21 16:56 11/11/21 18:00 11/11/21 20:00 Temperature 35.8 C L 36.8 C Pulse Rate 82 70 79 Respiratory Rate 94 H 15 Blood Pressure 147/86 H 110/71 Pulse Oximetry 24 L 96 11/11/21 22:00 11/11/21 22:52 11/12/21 00:00 Temperature 37.1 C Pulse Rate 64 72 73 Respiratory Rate 17 Blood Pressure 147/84 H Pulse Oximetry 97 95 11/12/21 02:00 11/12/21 03:08 11/12/21 04:00 Temperature 36.6 C Pulse Rate 80 63 72 Respiratory Rate 15 Blood Pressure 157/95 H Pulse Oximetry 96 96 11/12/21 06:00 11/12/21 08:00 11/12/21 10:00 Temperature 35.9 C L Pulse Rate 61 60 80 Respiratory Rate 19 Blood Pressure 180/55 H Pulse Oximetry 100 Exam Narrative: revealed him to be awake alert cooperative in no obvious acute
--- NOTE | 2021-11-12 14:47 | PM.DS ---
DS: Admitting Diagnosis Discharge Date 11/12/2021 Admitting Diagnosis Chest pain DS: Discharge Diagnosis Discharge Diagnosis (1) Chest pain: Qualifiers: Chest pain type: other chest pain Qualified Code(s): R07.89 - Other chest pain Code(s): R07.9 - Chest pain, unspecified Status: Acute Assessment and Plan: Cardiac enzymes are negative. Pt complains of heart burn heaviness in chest order IV reglan iv protonix Consult cardiology as pt had Abnl EKG on admission Pt had GI cocktail without relief (2) Migraine: Qualifiers: Intractability: not intractable Migraine type: unspecified Status migrainosus presence: without status migrainosus Qualified Code(s): G43.909 - Migraine, unspecified, not intractable, without status migrainosus Code(s): G43.909 - Migraine, unspecified, not intractable, without status migrainosus Status: Acute Assessment and Plan: Pt had toradol and dilaudid without relief (3) Gout: Code(s): M10.9 - Gout, unspecified Status: Chronic Assessment and Plan: Continue with allopurinol (4) Obesity: Code(s): E66.9 - Obesity, unspecified Status: Chronic Assessment and Plan: Going to hold Ozempic for now. (5) Chronic GERD: Code(s): K21.9 - Gastro-esophageal reflux disease without esophagitis Status: Chronic Assessment and Plan: Continue with pantoprazole. (6) Obstructive sleep apnea: Code(s): G47.33 - Obstructive sleep apnea (adult) (pediatric) Status: Chronic Assessment and Plan: Auto titrate CPAP (7) Depression with anxiety: Code(s): F41.8 - Other specified anxiety disorders Status: Chronic Assessment and Plan: Continue with duloxetine and sertraline (8) Hypertension: Qualifiers: Hypertension type: primary hypertension Qualified Code(s): I10 - Essential (primary) hypertension Code(s): I10 - Essential (primary) hypertension Status: Chronic Assessment and Plan: Continue with irbesartan. DS: Summary Hospital Course Reason for hospitalization: Chest pain Hospital Course: 56 years old male was admitted complains of having chest pain going on off and on for the last few weeks especially happened after taking Ozempic, patient denies any abdominal pain nausea vomiting or diarrhea. Patient workup in the hospital was negative patient echo did not show any significant wall motion abnormality. Cardiology consult was noted, no new workup was advised. Today patient is feeling better patient discharged home stable condition, patient followed primary care physician cardiology outpatient next week. Status at Discharge Cognitive/behavioral status at discharge: Stable Functional status at discharge: independent ambulation Overall status at discharge: patient is back to baseline Time Spent with Patient Time attestation: Total time spent providing and/or coordinating discharge services: Time spent: Less than 30 minutes Exam Const: General: cooperative, healthy appearing, comfortable, no acute distress, well developed, alert, awake and Physically active; No in distress Nutritional Appearance: average body habitus and obese morbidly obese Orientation/consciousness: oriented to person, oriented to place, oriented to time and patient oriented x3 HENMT: Head: normal to inspection, No palpable skull fracture present, normocephalic, atraumatic and abrasion Ears: hearing grossly normal bilaterally General nose exam: Normal external nose present Eyes: General: appearance normal, both eyes and all related structures EOM: EOMs intact bilaterally Neck: Neck: normal visual inspection, full ROM, no lymphadenopathy, trachea midline and supple Chest: Chest palpation & inspection: normal inspection of the chest Resp: Effort & Inspection: normal respiratory effort and no respiratory distress Auscultation: clear to auscultation bilaterally,
== END 2021-11-12 15:39 | disposition home or self-care (01) ==
LOC: ANHED 15:39 → ANHCPC 11-11 04:43
PROVIDERS: Internal Medicine Cardiovascular Disease; Nurse Practitioner; Admitting Provider Family Medicine; Emergency Provider Emergency Medicine; PCP Internal Medicine; Visit Provider Internal Medicine
DX: G43.909 Migraine, unspecified, not intractable, without status migrainosus (principal); T50.995A Adverse effect of other drugs, medicaments and biological substances, initial encounter; R79.89 Other specified abnormal findings of blood chemistry; I10 Essential (primary) hypertension; E78.5 Hyperlipidemia, unspecified; M10.9 Gout, unspecified; R07.9 Chest pain, unspecified; F41.8 Other specified anxiety disorders; G47.33 Obstructive sleep apnea (adult) (pediatric); K21.9 Gastro-esophageal reflux disease without esophagitis; E66.01 Morbid (severe) obesity due to excess calories; Z68.43 Body mass index [BMI] 50.0-59.9, adult
CPT/HCPCS: 36415; 70450; 71046; 76705; 80053; 80061; 82728; 83605; 83615; 83690; 83735; 84439; 84443; 84480; 84484; 85025; 85380; 93005; 96361; 96372; 96374; 96375; 96376; 99285; A9270; C8929; C9113; G0378; J1170; J1200; J1650; J1885; J2765; J7120; J7512; Q9957

== ENCOUNTER 2021-11-14 16:15 | Emergency (ER) | payer OTHER, SELFPAY ==
[2021-11-14 16:17] VITALS: BP 161/85; PULSE 85; RESP 20; TEMP 35.6; O2SAT 99
[2021-11-14] MEDS: diphenhydrAMINE HCl INJ 50 MG/ML VIAL 25 MG IV PUSH (18:07)
[2021-11-14] MEDS: KETOROLAC 30 MG/ML VIAL (*BKC) IV PUSH (18:08)
[2021-11-14] MEDS: METOCLOPRAMIDE HCL INJ 10 MG/2 ML VIAL IV PUSH (18:08)
[2021-11-14] MEDS: SODIUM CHLORIDE 0.9% IV 1,000 ML 999 ML IV CONT (18:08)
[2021-11-14 19:10] VITALS: BP 144/86; PULSE 86; RESP 18; O2SAT 99
--- NOTE | 2021-11-14 19:18 | ED.HA ---
HPI - Headache General Chief Complaint: Headache Stated Complaint: headaches Time Seen by Provider: 11/14/21 16:36 Source: patient History of Present Illness HPI Narrative: 56 year old male presents today with complaints of headache that started yesterday and has not been releived with tylenol or ibuprofen. Patient with history of migraines and recently admitted here for chest pain but was treated for migraine also. Paitent rates pain 4/10, sensitive to light, and with nausea. Pain is throbbing in nature and stretches from ear to ear. Related Data Home Medications Medication Instructions Recorded Confirmed Aimovig Autoinjector 140 mg SUBCUT MONTHLY 10/22/21 11/10/21 allopurinol 300 mg PO DAILY 10/22/21 11/10/21 duloxetine 30 mg PO DAILY 10/22/21 11/10/21 irbesartan 300 mg PO DAILY 10/22/21 11/10/21 meloxicam 7.5 mg PO DAILY 10/22/21 11/10/21 sertraline 100 mg PO DAILY 10/22/21 11/10/21 famotidine 40 mg PO DAILY 11/10/21 11/10/21 pantoprazole 40 mg PO DAILY 11/10/21 11/10/21 prednisone 20 mg PO DAILY 11/10/21 11/10/21 promethazine 25 mg PO DAILY 11/10/21 11/10/21 Allergies Allergy/AdvReac Type Severity Reaction Status Date / Time meperidine Allergy Severe Anaphylactic Verified 10/22/21 14:30 Shock morphine AdvReac Mild Nausea and Verified 10/22/21 14:30 Vomiting Review of Systems Constitutional: Constitutional: Reports as per HPI, Denies chills, Denies fever(s) and Denies weakness Eyes: Eyes: Reports photophobia ENT: Reports system reviewed and no additional complaints, except as documented Cardiovascular: Cardiovascular: Reports no additional cardiovascular complaints Respiratory: Respiratory: Reports no additional respiratory complaints Gastrointestinal: Gastrointestinal: Reports no additional gastrointestinal complaints Musculoskeletal: Musculoskeletal: Reports no additional musculoskeletal complaints Neurologic: Reports headache(s) PMFSH Past Medical History Medical History Chronic GERD Depression with anxiety Gout Hypertension Obesity BMI 57.4 Obstructive sleep apnea Surgical History Surgical History H/O cervical spine surgery H/O rhinoplasty History of tonsillectomy Total knee replacement status Family History Family History Mother Colon cancer Mitral valve replaced Hypertension Macular degeneration Father Malignant neoplasm of prostate Social History Social History Social History: The patient lives with his and has 1 child. 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 His is the durable power erisa attorney for healthcare. The patient is lifelong nonsmoker. He does not use any alcohol marijuana or illicit drugs. Code status full code Smoking status: Never smoker Alcohol intake: current Drinks per week: 1 Substance use: never Substance use type: does not use Spiritual care concerns: No Exam Narrative: GENERAL: Well-appearing, well-nourished, and in no acute distress. HEAD: Normocephalic, atraumatic. EYES: PERRLA and EOMI. ENT: Nares clear, no rhinorrhea or epistaxis. Mucous membranes moist. Oropharynx without tonsillar hypertrophy exudate or other lesions. Bilateral TMs cloudy white. no bulging noted. NECK: Supple. No adenopathy or masses. No carotid bruits or JVD CHEST: Clear to auscultation. No respiratory distress. No wheezes rales or rhonchi HEART: Regular rate and rhythm. No murmur heard. Normal peripheral pulses. ABDOMEN: Soft, nontender, nondistended, normal active bowel sounds. EXTREMITIES: Normal range of motion. No edema. SKIN: Warm, dry, no rash. NEURO: No focal deficits. Alert and oriented x3. PSYCH: Normal mood and affect. Course Ree
== END 2021-11-14 19:15 | disposition home or self-care (01) ==
PROVIDERS: Emergency Provider Nurse Practitioner Family; PCP Internal Medicine
DX: G43.009 Migraine without aura, not intractable, without status migrainosus (principal); I10 Essential (primary) hypertension; K21.9 Gastro-esophageal reflux disease without esophagitis; M10.9 Gout, unspecified; G47.33 Obstructive sleep apnea (adult) (pediatric); E66.9 Obesity, unspecified; Z68.43 Body mass index [BMI] 50.0-59.9, adult; F41.8 Other specified anxiety disorders; Z96.659 Presence of unspecified artificial knee joint
CPT/HCPCS: 96361; 96374; 96375; 99284; J1100; J1200; J1885; J2765; J7030

== ENCOUNTER 2022-02-08 14:36 | Outpatient (CLI) | payer OTHER, SELFPAY ==
--- NOTE | ~2022-02-08 | MR_ITS ---
EXAMINATION: MR brain/brain stem wo/w con DATE: 02/08/2022 15:39 INDICATION: Migraine headache, unspecified, not intractable, without status migrainosus. TECHNIQUE: Magnetic resonance imaging (MRI) of the brain and brainstem was performed without and with 20 mL MultiHance intravenous contrast. COMPARISON: Head CT 11/10/2021 FINDINGS: There is no intracranial hemorrhage, acute infarction, or abnormal intracranial mass lesion . There are scattered areas of nonspecific increased T2-weighted signal intensity in the cerebral whi te matter, which is within normal limits for the patient's age. The ventricles are normal in size. Th e paranasal sinuses are clear. The orbits are normal. There is a trace left mastoid effusion. IMPRESSION: 1. Normal aging brain. Reviewed, dictated and finalized at location B. IMPRESSION: 1. Normal aging brain.
[2022-02-08 15:11] LABS: Estimated Glomerular Filt Rate > 60
== END 2022-02-08 14:37 | disposition home or self-care (01) ==
PROVIDERS: PCP Internal Medicine; Visit Provider Psychiatry & Neurology Neurology
DX: G43.909 Migraine, unspecified, not intractable, without status migrainosus (principal); G40.909 Epilepsy, unspecified, not intractable, without status epilepticus
CPT/HCPCS: 70553; A9577

== ENCOUNTER 2022-02-16 14:23 | Outpatient (CLI) | payer OTHER, SELFPAY ==
--- NOTE | 2022-02-16 14:35 | PC.NURSE ---
Pt to room 211 amb per self. A&Ox3. Has no questions or complaints. Plan of care explained. Consent signed. Oriented to room. Call spangelr in reach. Reminded to call with needs.
[2022-02-16] MEDS: diphenhydrAMINE HCl CAP 25 MG CAPSULE PO (14:56)
[2022-02-16] MEDS: BEBTELOVIMAB 175 MG/2 ML VIAL IV PUSH (14:56)
[2022-02-16] MEDS: ACETAMINOPHEN 325 MG TABLET 650 MG PO (14:56)
[2022-02-16] MEDS: FAMOTIDINE 20 MG TABLET PO (14:56)
--- NOTE | 2022-02-16 15:31 | PC.NURSE ---
Pt tolerated medication well. Has no questions or complaints. Discharged to home amb per self.
== END 2022-02-16 14:24 | disposition home or self-care (01) ==
PROVIDERS: PCP Internal Medicine; Visit Provider Internal Medicine
DX: U07.1 COVID-19 (principal); I10 Essential (primary) hypertension
CPT/HCPCS: A9270; M0222; Q0222

== ENCOUNTER 2022-04-12 00:42 | Day surgery (SDC) | payer OTHER, SELFPAY ==
[2022-03-26 14:32] VITALS: BMI 54.0
[2022-04-12 08:58] VITALS: BP 137/79; PULSE 68; RESP 20; TEMP 36.9; O2SAT 99
[2022-04-12] MEDS: LACTATED RINGERS 1,000 ML 150 ML IV CONT (09:07)
[2022-04-12 09:21] LABS: Glucose Point of Care 109 mg/dl (65-105)
--- NOTE | 2022-04-12 09:32 | PM.HPGS ---
History of Present Illness History of Present Illness Consent: Risks, benefits, and alternatives have been discussed and questions answered. Patient agrees to proceed with procedure. Chief complaint: neoplasm screening Narrative: Ney Saucedo is a 56 year old male here for first screening colonoscopy, mother had colon cancer Review of Systems Constitutional: Constitutional: Denies headache(s) and Denies weakness Eyes: Eyes: Denies blurry vision ENT: Reports Normal hearing present, Denies headache(s) and Denies neck pain Cardiovascular: Cardiovascular: Denies chest pain and Denies dyspnea Respiratory: Respiratory: Denies dyspnea Gastrointestinal: Gastrointestinal: Reports no additional gastrointestinal complaints Genitourinary: Genitourinary: Denies dysuria Musculoskeletal: Musculoskeletal: Denies neck pain Integumentary/Breasts: Skin/Breast: Denies dry skin Neurologic: Reports Normal hearing present, Denies headache(s) and Denies weakness Psychiatric: Psychiatric: Denies anxiety Endocrine: Endocrine: Denies change in body appearance Hematologic/Lymphatic: Hematologic/Lymphatic: Denies easy bleeding Allergic/Immunologic: Allergic/Immunologic: Denies urticaria PMFSH Past Medical History Medical History (Updated 04/12/22 @ 09:32 by Gunner Davidson MD) Chronic GERD Depression with anxiety Family history of colon cancer in mother Gout Hypertension Obesity BMI 57.4 Obstructive sleep apnea Repeated concussion of brain Seizure disorder Seizure disorder Surgical History Surgical History H/O cervical spine surgery H/O rhinoplasty History of tonsillectomy Total knee replacement status Family History Family History Mother Colon cancer Mitral valve replaced Hypertension Macular degeneration Father Malignant neoplasm of prostate Social History Social History Social History: The patient lives with his and has 1 child. 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 His is the durable power mergers and acquisitions attorney for healthcare. The patient is lifelong nonsmoker. He does not use any alcohol marijuana or illicit drugs. Code status full code Smoking status: Never smoker Alcohol intake: current Drinks per week: 1 Alcohol use details: 2 drinks monthly Substance use: never Substance use type: does not use Living arrangements: with family Spiritual care concerns: No Meds Home Medications and Allergies Home Medications Medication Instructions Recorded Confirmed Type allopurinol 300 mg tablet 300 mg PO DAILY 10/22/21 03/26/22 History duloxetine 30 mg capsule,delayed 30 mg PO BID 10/22/21 03/26/22 History release irbesartan 300 mg tablet 300 mg PO DAILY 10/22/21 03/26/22 History meloxicam 7.5 mg tablet 7.5 mg PO BID 10/22/21 03/26/22 History sertraline 100 mg tablet 100 mg PO DAILY 10/22/21 03/26/22 History fremanezumab-vfrm 225 mg/1.5 mL 1.5 mg subcut MONTHLY 03/26/22 03/26/22 History subcutaneous auto-injector (Ajovy) prochlorperazine maleate 10 mg 10 mg PO DAILY PRN Headache 03/26/22 03/26/22 History tablet semaglutide 0.25 mg or 0.5 mg (2 0.5 mg subcut WEEKLY 03/26/22 03/26/22 History mg/1.5 mL) subcutaneous pen injector (Ozempic) tramadol 50 mg tablet 50 mg PO Q12H PRN pain #60 tabs 04/02/22 04/12/22 Rx Allergies Allergy/AdvReac Type Severity Reaction Status Date / Time meperidine Allergy Severe Anaphylactic Verified 04/12/22 08:56 Shock morphine AdvReac Mild Nausea and Verified 04/12/22 08:56 Vomiting Vital Signs Vital Signs - 24 hr 04/12/22 08:58 Temperature 98.5 F Pulse Rate 68 Respiratory Rate 20 Blood Pressure 137/79 Pulse Oximetry 99 Oxygen Delivery Room Air Exam Const: General: comfo
--- NOTE | 2022-04-12 09:40 | WPDANESEPPF ---
Anes - Initial Pre Proc Eval Procedure: Operation Date: 04/12/22 10:00 Proposed Procedures p Screening Colonoscopy - Gunner Davidson MD Date/Time: 04/12/22 09:40 Surgeon: Gunner Davidson MD Pre Op Diagnosis: neoplasm screening Patient Data Age: 56 Gender: M Height: 1.75 m Weight: 164.2 kg Last Vital Signs Temp 98.5 F 04/12/22 08:58 Pulse 68 04/12/22 08:58 Resp 20 04/12/22 08:58 BP 137/79 04/12/22 08:58 Pulse Ox 99 04/12/22 08:58 O2 Del Method Room Air 04/12/22 08:58 Allergies Allergy/AdvReac Type Severity Reaction Status Date / Time meperidine Allergy Severe Anaphylactic Verified 04/12/22 08:56 Shock morphine AdvReac Mild Nausea and Verified 04/12/22 08:56 Vomiting Home Medications Medication Instructions Recorded Confirmed Type allopurinol 300 mg tablet 300 mg PO DAILY 10/22/21 03/26/22 History duloxetine 30 mg capsule,delayed 30 mg PO BID 10/22/21 03/26/22 History release irbesartan 300 mg tablet 300 mg PO DAILY 10/22/21 03/26/22 History meloxicam 7.5 mg tablet 7.5 mg PO BID 10/22/21 03/26/22 History sertraline 100 mg tablet 100 mg PO DAILY 10/22/21 03/26/22 History fremanezumab-vfrm 225 mg/1.5 mL 1.5 mg subcut MONTHLY 03/26/22 03/26/22 History subcutaneous auto-injector (Ajovy) prochlorperazine maleate 10 mg 10 mg PO DAILY PRN Headache 03/26/22 03/26/22 History tablet semaglutide 0.25 mg or 0.5 mg (2 0.5 mg subcut WEEKLY 03/26/22 03/26/22 History mg/1.5 mL) subcutaneous pen injector (Ozempic) tramadol 50 mg tablet 50 mg PO Q12H PRN pain #60 tabs 04/02/22 04/12/22 Rx Laboratory Tests 04/12/22 09:13 POC Capillary Glucose 109 mg/dl H mg/dl (65-105) Patient hx anesthesia problems: none Family hx anesthesia problems: none Results Review: All pre-operative results and documents have been reviewed as part of the pre-operative evaluation. [facility] Past Medical History Medical History (Updated 04/12/22 @ 09:32 by Gunner Davidson MD) Chronic GERD Depression with anxiety Family history of colon cancer in mother Gout Hypertension Obesity BMI 57.4 Obstructive sleep apnea Repeated concussion of brain Seizure disorder Seizure disorder Surgical History Surgical History H/O cervical spine surgery H/O rhinoplasty History of tonsillectomy Total knee replacement status Family History Family History Mother Colon cancer Mitral valve replaced Hypertension Macular degeneration Father Malignant neoplasm of prostate Social History Social History Social History: The patient lives with his and has 1 child. 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 His is the durable power county attorney for healthcare. The patient is lifelong nonsmoker. He does not use any alcohol marijuana or illicit drugs. Code status full code Smoking status: Never smoker Alcohol intake: current Drinks per week: 1 Alcohol use details: 2 drinks monthly Substance use: never Substance use type: does not use Living arrangements: with family Spiritual care concerns: No Anes - Eval Final PreProcedure Day of Procedure 04/12/22 09:40 Patient weight: super morbidly obese Heart: regular rate and rhythm Lungs: clear to auscultation Airway: Mallampati scale class III Neurological: alert and oriented Last oral intake: >/= 8 hours ASA classification: IV Emergent: no Anesthetic plan: proceed Anesthesia type and monitoring: general GIVS and standard monitoring Results Review: All pre-operative results and documents have been reviewed as part of the pre-operative evaluation. Informed Consent: The patient's anesthetic plan and its attendant risks and benefits were discussed with ken
[2022-04-12 10:01] VITALS: BP 106/74; PULSE 72; RESP 23; O2SAT 96
[2022-04-12 10:11] VITALS: BP 128/74; PULSE 70; RESP 24; O2SAT 96
[2022-04-12 10:21] VITALS: BP 127/77; PULSE 76; RESP 20; O2SAT 96
== END 2022-04-12 10:29 | disposition home or self-care (01) ==
PROVIDERS: PCP Internal Medicine; Visit Provider Internal Medicine Gastroenterology
PROC: 0DJD8ZZ Inspection of Lower Intestinal Tract, Via Natural or Artificial Opening Endoscopic (ICD-10-PCS; CPT 45378; principal; 2022-04-12 10:00)
DX: Z12.11 Encounter for screening for malignant neoplasm of colon (principal); D12.3 Benign neoplasm of transverse colon; Z80.0 Family history of malignant neoplasm of digestive organs; K64.8 Other hemorrhoids; K21.9 Gastro-esophageal reflux disease without esophagitis; F41.8 Other specified anxiety disorders; I10 Essential (primary) hypertension; M10.9 Gout, unspecified; G47.33 Obstructive sleep apnea (adult) (pediatric); R56.9 Unspecified convulsions; E66.01 Morbid (severe) obesity due to excess calories; Z68.43 Body mass index [BMI] 50.0-59.9, adult
CPT/HCPCS: 45385; 82948; 88305; J2704; J7120

== ENCOUNTER 2022-05-28 13:46 | Outpatient (RCR) | payer OTHER, SELFPAY ==
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
== END 2022-06-09 23:59 | disposition home or self-care (01) ==
LOC: CHSPT 13:46
PROVIDERS: PCP Internal Medicine
DX: S06.9X9S Unspecified intracranial injury with loss of consciousness of unspecified duration, sequela (principal); F07.81 Postconcussional syndrome; R51.9 Headache, unspecified; H83.2X9 Labyrinthine dysfunction, unspecified ear
CPT/HCPCS: 97110; 97112; 97162

== ENCOUNTER 2022-06-26 21:41 | Emergency (ER) | payer OTHER, SELFPAY ==
--- NOTE | ~2022-06-26 | XR_ITS ---
EXAMINATION: XR chest 2V DATE: 06/27/2022 07:42 INDICATION: Cough, weakness and elevated white blood cell count TECHNIQUE: PA and lateral views of the chest were obtained. COMPARISON: Chest radiograph dated 06/26/2022 FINDINGS: The lungs are clear with no focal airspace opacities, pulmonary edema, pleural effusion or pneumothor ax. The cardiomediastinal silhouette is normal. Lower cervical anterior spinal fusion with interbody bone graft cages and anterior plate-screw fixation. IMPRESSION: 1. No acute cardiopulmonary disease. Reviewed, dictated and finalized at location A.
--- NOTE | ~2022-06-26 | XR_ITS ---
EXAMINATION: XR chest 1V portable DATE: 06/26/2022 23:17 INDICATION: Leukocytosis TECHNIQUE: frontal and lateral views of the chest were obtained. COMPARISON: Chest radiograph dated 11/10/2021 FINDINGS: Decreased lung volumes. No focal airspace opacities, pulmonary edema, pleural effusion or pneumothora x. The cardiomediastinal silhouette is within normal limits for AP technique. Instrumented lower cerv ical anterior spinal fusion. IMPRESSION: 1. Small lung volumes. No other acute cardiopulmonary disease. Reviewed, dictated and finalized at location A.
[2022-06-26 21:41] VITALS: BP 138/82; PULSE 102; RESP 18; TEMP 37.2; O2SAT 95
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
--- NOTE | 2022-06-26 22:35 | PC.NURSE ---
pt unable to verify home medications. medication list from Pharmacy does not appear to be current.
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
[2022-06-26 22:53] LABS: Appearance Urine Clear (Clear); Bilirubin Urine Negative (Negative); Blood Urine 2+ (Negative); Glucose Urine UA Negative (Negative); Ketones Urine Negative (Negative); Leukocyte Esterase Ur Negative (Negative); Nitrate Urine Negative (Negative); Protein Urine Negative (Negative); Specific Grav Ur <= 1.005 (1.010-1.020); Urobilinogen Urine 0.2 mg/dL (0.2-1.0)
[2022-06-26 22:55] LABS: Hematocrit 43.3 % (40.0-54.0); Hemoglobin 15.9 g/dL (14.0-18.0); Mean Corpuscular HGB Conc 36.7 g/dL (32.0-36.0); Mean Corpuscular Hemoglobin 32.4 pg (27.0-31.0); Mean Corpuscular Volume 88.2 fL (78.0-102.0); Mean Platelet Volume 10.7 fl (8.7-11.0); Platelet Count Result 257 K/mm3 (150-420); Red Blood Count 4.91 M/mm3 (4.70-6.10); Red Cell Distribution Width 12.6 % (11.6-14.4)
[2022-06-26 23:00] LABS: Amphetamine Screen Urine Negative (Negative); Barbiturate Screen Urine Negative (Negative); Benzodiazepines Screen Urine Negative (Negative); Cannabinoid Screen Urine Negative (Negative); Cocaine Screen Urine Negative (Negative); Methadone Screen Urine Negative (Negative); Opiate Screen Urine Negative (Negative); Phencyclidine Screen Urine Negative (Negative)
[2022-06-26 23:02] LABS: Add Urine Microscopic? YES; Color Urine Light Yellow (Yellow); RBC Urine 0-2 /hpf (0-2); Squamous Epithelial Cell Urine Rare /hpf (Few)
[2022-06-26 23:04] LABS: White Blood Count 20.2 K/mm3 (4.8-10.8)
[2022-06-26 23:13] LABS: Alanine Aminotransferase 47 U/L (16-63); Alkaline Phosphatase 79 U/L (46-116); Anion Gap 15 mmol/L (8-16); Aspartate Amino Transferase 27 U/L (15-37); Bilirubin,Total 0.5 mg/dL (0.00-1.00); Blood Urea Nitrogen 9 mg/dL (7-18); Calcium 9.2 mg/dL (8.5-10.1); Carbon Dioxide 23 mmol/L (21-32); Chloride 103 mmol/L (98-108); Estimated Glomerular Filt Rate 60; Glucose 146 mg/dL (70-99); Osmolality Calculated 293 mOsm/kg (285-295); Sodium 141 mmol/L (136-145); Thyroid Stimulating Hormone 5.74 uIU/mL (0.36-3.74); Total Protein 8.6 g/dL (6.4-8.2)
[2022-06-26 23:15] LABS: Ethanol 228 mg/dL (0-6)
[2022-06-26 23:44] LABS: SARS-CoV-2 RNA PCR Negative (Negative)
[2022-06-26 23:50] LABS: Band Neutrophils Percent 1 % (0-6); Neutrophils Absolute Manual 14.94 K/mm3 (1.3-6.7); Neutrophils Percent Manual 73 % (46-73); Total Cells Counted 100
[2022-06-26 23:51] LABS: Lymphocytes Absolute Manual 3.63 K/mm3 (1.1-4.5); Lymphocytes Percent Manual 18 % (18-44); Metamyelocytes Percent 1 %; Monocytes Absolute Manual 1.41 K/mm3 (0.1-0.90); Monocytes Percent Manual 7 % (3-9); Platelet Estimate Adequate (Adequate)
[2022-06-27] VITALS (41 sets, daily range): BP systolic 140–183; BP diastolic 72–102; PULSE 81–98; RESP 15–20; TEMP 36.5–37.2; O2SAT 94–99
--- NOTE | 2022-06-27 00:50 | PC.NURSE ---
pt ambulated to bathroom to urinate. pt has an unsteady gait; this staff member at pt side while ambulating.
--- NOTE | 2022-06-27 00:53 | PC.NURSE ---
this staff member asked the pt how he was feeling upon returning to his bed. pt stated, 'I am feeling better.'
--- NOTE | 2022-06-27 02:56 | PC.NURSE ---
this staff member observed the pt ambulated to bathroom with a steady gait. this staff member asked the pt, Do feel like hurting yourself? pt responded, No . this staff member asked the pt, How do you feel? pt responded, I am good. this staff member asked the pt, Can I get you anything? pt responded, No. I am good. pt resting in bed with the lights off and video monitoring active.
[2022-06-27 07:08] LABS: Ethanol 68 mg/dL (0-6)
[2022-06-27 07:12] LABS: Basophils Absolute Auto 0.07 K/mm3 (0.00-0.10); Basophils Percent Auto 0.4 % (0.0-1.0); Eosinophils Absolute Auto 0.04 K/mm3 (0.02-0.50); Eosinophils Percent Auto 0.2 % (1.0-6.0); Hematocrit 43.3 % (40.0-54.0); Hemoglobin 15.5 g/dL (14.0-18.0); Immature Granulocyte Absolute 0.08 K/mm3 (0.00-0.00); Immature Granulocyte Percent A 0.5 % (0.0-0.0); Lymphocytes Absolute Auto 2.88 K/mm3 (1.10-4.50); Lymphocytes Percent Auto 17.7 % (18.0-42.0); Mean Corpuscular HGB Conc 35.8 g/dL (32.0-36.0); Mean Corpuscular Hemoglobin 31.7 pg (27.0-31.0); Mean Corpuscular Volume 88.5 fL (78.0-102.0); Mean Platelet Volume 10.3 fl (8.7-11.0); Monocytes Absolute Auto 0.96 K/mm3 (0.10-0.90); Monocytes Percent Auto 5.9 % (2.0-11.0); Neutrophils Absolute Auto 12.2 K/mm3 (1.7-7.2); Neutrophils Percent Auto 75.3 % (50.0-70.0); Platelet Count Result 235 K/mm3 (150-420); Red Blood Count 4.89 M/mm3 (4.70-6.10); White Blood Count 16.2 K/mm3 (4.8-10.8)
[2022-06-27] MEDS: SODIUM CHLORIDE 0.9% IV 1,000 ML 500 ML IV CONT (07:56)
[2022-06-27] MEDS: KCL 20 MEQ/SW 100 ML 100 ML 50 MEQ IVPB (07:56)
[2022-06-27] MEDS: POTASSIUM BICARBONATE 25 MEQ TABEF 50 MEQ PO (07:57)
--- NOTE | 2022-06-27 08:06 | PC.NURSE ---
Patient moved to room 1 for telemetry monitoring while K rider is running. Patient told us about previous head injuries causing encephalitis while sitting up eating breakfast. Patient also mentioned having PTSD that is triggered by repetitive noises. RN and this student RN made attempts to shut off monitor alarms in patient room for patient comfort. Patient states he no longer has a desire to harm himself or others. Call placed to [facility] due to patients previous comments about wanting to harm himself and others now that patient is medically stable.
--- NOTE | 2022-06-27 08:20 | PC.NURSE ---
spoke with [place] hern[place] states she will be on her way for eval
--- NOTE | 2022-06-27 09:32 | PC.NURSE ---
Assisted patient to walk to the bathroom with IV pole. Patient stated that he experienced some dizziness upon sitting up in bed which he stated is common for him ever since his concussions. Patient ambulated safely to bathroom.
--- NOTE | 2022-06-27 13:48 | PC.NURSE ---
[id number] LEXIE FROM [facility] FINISHED HER PAPER WORK AND ALL PAPERS FAXED TO [facility] WE ARE AWAITING BED ASSIGNMENT
--- NOTE | 2022-06-27 16:07 | PC.NURSE ---
1600 pt speaking with [facility] at this time for possible admission
--- NOTE | 2022-06-27 18:28 | PC.NURSE ---
Patient ate 75% of lunch at 1245. Patient walking independently to bathroom.
--- NOTE | 2022-06-27 18:29 | PC.NURSE ---
Patient ate 100% dinner at 1645. Patient ambulating up ad beth to bathroom.
--- NOTE | 2022-06-27 18:33 | PC.NURSE ---
Patient requested to be moved to room 5 at 1830. Patient moved to room 5 to allow him to have more rest and quiet for his headache.
--- NOTE | 2022-06-27 18:51 | PC.NURSE ---
1700 sarbjit hernandez called and stated pt was declined by both facilities pt will be reevaluated in am by sarbjit hernandez
--- NOTE | 2022-06-27 19:28 | PC.NURSE ---
On 06/27/22, the student, beulah mccarty[ ], provided care and completed [facility] documentation on this patient. I have reviewed the student's documentation and agree with the findings.
--- NOTE | 2022-06-27 19:30 | PC.NURSE ---
this staff member asked the patient, are you having any thoughts of harming yourself?' Patient stated, No. this staff member asked the patient, are you having any suicidal thoughts? patient stated, no. this staff member asked the patient, How are you feeling this evening? patient stated, I feel okay except for my headache. the medication that i was given does not seem to be helping much. this staff member informed the patient that i would talk to the doctor. this staff member asked the patient, can I get you anything? the patient stated, I am good.
[2022-06-27] MEDS: HYDROcodone/acetaminophen (*CRX) 5-325 MG TABLET 1 TAB PO (20:25)
--- NOTE | 2022-06-27 20:30 | PC.NURSE ---
pt received pain medication; see MAR.
[2022-06-28] MEDS: POTASSIUM CHLORIDE 20 MEQ TABLET PO (06:52)
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
[2022-06-28 07:57] VITALS: BP 116/74; PULSE 85; RESP 16; O2SAT 96
[2022-06-28 08:16] LABS: Anion Gap 5 mmol/L (8-16); Blood Urea Nitrogen 13 mg/dL (7-18); Calcium 8.8 mg/dL (8.5-10.1); Carbon Dioxide 31 mmol/L (21-32); Chloride 105 mmol/L (98-108); Estimated CRCL calculation 87 ml/min; Estimated Glomerular Filt Rate > 60; Glucose 124 mg/dL (70-99); Osmolality Calculated 293 mOsm/kg (285-295); Potassium 4.4 mmol/L (3.5-5.1); Sodium 141 mmol/L (136-145)
--- NOTE | 2022-06-28 10:03 | PC.NURSE ---
PT IS SITTING UP IN RECLINER WATCHING TV AT THIS TIME. NAD NOTED. PT DENIES ANY NEEDS OR COMPLAINTS. PEPSI PROVIDED. PT CONTINUES TO AWAIT ARRIVAL OF [facility]. CALL PLACED AT THIS TIME. SPOKE WITH [facility], WHO REPORTS THEY ARE ATTEMPTING PLACEMENT. WILL CONTINUE TO MONITOR.
--- NOTE | 2022-06-28 11:37 | PC.NURSE ---
HAS ARRIVED, BROUGHT BELONGINGS THAT ARE LOCKED IN PYS ROOM. CPAP MACHINE HAS BEEN BROUGHT BY THE . PT IS CURRENTLY SPEAKING WITH . NAD NOTED. WILL CONTINUE TO MONITOR.
--- NOTE | 2022-06-28 12:49 | PC.NURSE ---
HAS LEFT, PT ATE LUNCH. PROVIDED PHONE NUMBERS CELL [phone] AND HOME [phone]. CALL PLACED TO [facility], THEY ARE GOING TO FAX PT MEDICATION LIST. NAD NOTED. PT IS CALM AND COOPERATIVE. WILL CONTINUE TO MONITOR.
[2022-06-28 16:15] VITALS: BP 155/88; PULSE 78; RESP 16; O2SAT 97
--- NOTE | 2022-06-28 16:21 | PC.NURSE ---
CALLED MELISSA JAMES FOR [facility] TO RETURN CALL. PT IS SITTING IN RECLINER WATCHING TV AT THIS TIME. PT REPORTS HEADACHE, [facility] NOTIFIED AND MEDICATIONS TO BE ADMINISTERED PER ORDER. WILL CONTINUE TO MONITOR.
--- NOTE | 2022-06-28 16:51 | PC.NURSE ---
MALIKA FROM [facility] RETURNS CALL @ [phone], REPORTS SHE IS NOW TAKING OVER PLACEMENT, HOWEVER HAS BEEN UNSUCCESSFUL TO THIS POINT DUE TO PT NO LONGER SI. PER ERP, HE IS NOT COMFORTABLE WITH PT BEING DC HOME WITH SAFETY PLAN. THIS RN CALLS [facility], SPOKE WITH [facility] WHO REPORTS THEY HAVE BEDS, TO FAX THE CHART. PT HAS SPOKEN WITH [facility] ON THE PHONE AND RETURNED TO ROOM WITHOUT INCIDENT. WILL CONTINUE TO MONITOR. CHART FAXED TO [phone] AT THIS TIME.
[2022-06-28] MEDS: traMADol HCL (*CRX) 50 MG TABLET PO (17:10)
--- NOTE | 2022-06-28 18:24 | PC.NURSE ---
PT SIGNS VOLUNTARY FORM FOR ADMISSION TO [facility] AT THIS TIME. PAPERWORK FAXED BACK TO [facility]. SPOKE WITH [facility] WHO REPORTS PT HAS BEEN ACCEPTED BY DR DOS SANTOS PENDING RECEIPT OF VOLUNTARY FORM. AWAITING ROOM ASSIGNMENT AND REPORT FOR TRANSFER. WILL CONTINUE TO MONITOR. PT HAS REMAINED CALM AND COOPERATIVE THROUGHOUT TODAY.
[2022-06-28 18:25] VITALS: BP 165/94; PULSE 87; RESP 18; TEMP 36.9; O2SAT 98
--- NOTE | 2022-06-28 19:09 | PC.NURSE ---
MALIKA FROM [facility] NOTIFIED OF ACCEPTANCE TO [facility]. PT TO BE ADMITTED TO [facility], DR DOS SANTOS ACCEPTED. [phone]. WILL NOT TAKE REPORT UNTIL AFTER SHIFT CHANGE.
--- NOTE | 2022-06-28 19:10 | PC.NURSE ---
GABRIEL NOTIFIED OF PT PLAN OF CARE AND TRANSFER TO [facility].
--- NOTE | 2022-06-28 19:38 | PC.NURSE ---
Care resumed, report received, paperwork signed for transfer, pt watching TV at this time, awaiting to call report to [facility] for transfer.
--- NOTE | 2022-06-28 20:25 | PC.NURSE ---
Report given to Otilia at [facility], call paged to [facility] for transfer.
[2022-06-28 20:27] VITALS: BP 146/74; PULSE 85; RESP 20; TEMP 37; O2SAT 98
--- NOTE | 2022-06-28 20:49 | PC.NURSE ---
Report given to [facility] staff for pt transfer. Pt loaded to cot s difficulty, pt cooperative and calm.
== END 2022-06-28 20:54 ==
PROVIDERS: Emergency Medicine; Emergency Provider Emergency Medicine; PCP Internal Medicine
DX: R45.850 Homicidal ideations (principal); X83.8XXA Intentional self-harm by other specified means, initial encounter; Z20.822 Contact with and (suspected) exposure to COVID-19; K21.9 Gastro-esophageal reflux disease without esophagitis; I10 Essential (primary) hypertension
CPT/HCPCS: 36415; 71045; 71046; 80048; 80053; 80307; 81001; 84443; 85025; 96365; 96366; 96367; 99285; A9270; C9803; J0131; J0696; J3480; J7030; U0003; U0005

== ENCOUNTER 2022-07-15 01:45 | Emergency (ER) | payer OTHER, SELFPAY ==
--- NOTE | ~2022-07-15 | CT_ITS ---
EXAMINATION: CT abdomen pelvis wo con DATE: 07/15/2022 02:43 INDICATION: Left flank pain TECHNIQUE: Computed tomography (CT) of the abdomen and pelvis was performed without intravenous contr ast. The dose-length product (DLP) was 1595.45 mGy-cm. Automated exposure control and iterative recon struction technique were employed. COMPARISON: 08/27/2010 FINDINGS: Minimal dependent atelectasis is present in the lung bases. The heart size is normal. The l iver, pancreas, gallbladder, and adrenal glands are normal. The chronically enlarged spleen measures 20.9 cm. The right kidney is unremarkable. There is a 2 mm stone at the left ureteropelvic junction w hich causes mild hydronephrosis. The mildly dilated appendix measures up to 8 mm. No pathologically e nlarged abdominal or pelvic lymph nodes are identified. There is no free intraperitoneal gas or evide nce of bowel obstruction. There is mild lumbar spondylosis. IMPRESSION: 1. 2 mm stone at the left ureteropelvic junction causing mild hydronephrosis. 2. Mildly dilated appendix which could reflect early appendicitis. Recommend correlation for right lo wer quadrant tenderness. These findings were discussed with Dr. Lopez at 0905 hours on 07/15/2022. 3. Chronic splenomegaly. Reviewed, dictated and finalized at location B. IMPRESSION: 1. 2 mm stone at the left ureteropelvic junction causing mild hydronephrosis. 2. Mildly dilated appendix which could reflect early appendicitis. Recommend co rrelation for right lower quadrant tenderness. These findings were discussed wi Dr. Lopez at 0905 hours on 07/15/2022. 3. Chronic splenomegaly.
[2022-07-15 01:45] VITALS: BP 131/66; PULSE 71; RESP 20; TEMP 36.6; O2SAT 97
[2022-07-15] MEDS: KETOROLAC (*BKC) 60 MG/2 ML VIAL IM (02:09)
[2022-07-15 02:17] LABS: Basophils Absolute Auto 0.09 K/mm3 (0.00-0.10); Basophils Percent Auto 0.7 % (0.0-1.0); Eosinophils Absolute Auto 0.09 K/mm3 (0.02-0.50); Eosinophils Percent Auto 0.7 % (1.0-6.0); Hematocrit 37.3 % (40.0-54.0); Hemoglobin 13.3 g/dL (14.0-18.0); Immature Granulocyte Absolute 0.07 K/mm3 (0.00-0.00); Immature Granulocyte Percent A 0.6 % (0.0-0.0); Lymphocytes Absolute Auto 1.64 K/mm3 (1.10-4.50); Lymphocytes Percent Auto 13.4 % (18.0-42.0); Mean Corpuscular HGB Conc 35.7 g/dL (32.0-36.0); Mean Corpuscular Hemoglobin 32.4 pg (27.0-31.0); Mean Corpuscular Volume 90.8 fL (78.0-102.0); Mean Platelet Volume 11.1 fl (8.7-11.0); Monocytes Absolute Auto 0.93 K/mm3 (0.10-0.90); Monocytes Percent Auto 7.6 % (2.0-11.0); Neutrophils Absolute Auto 9.4 K/mm3 (1.7-7.2); Platelet Count Result 192 K/mm3 (150-420); Red Blood Count 4.11 M/mm3 (4.70-6.10); Red Cell Distribution Width 13.2 % (11.6-14.4); White Blood Count 12.2 K/mm3 (4.8-10.8)
[2022-07-15 02:18] LABS: Add Urine Microscopic? YES; Bilirubin Urine Negative (Negative); Blood Urine 3+ (Negative); Color Urine Yellow (Yellow); Glucose Urine UA Negative (Negative); Ketones Urine Negative (Negative); Leukocyte Esterase Ur Negative (Negative); Nitrate Urine Negative (Negative); Protein Urine Trace (Negative); Specific Grav Ur >= 1.030 (1.010-1.020)
[2022-07-15 02:26] LABS: Appearance Urine Slightly Cloudy (Clear); Bacteria Urine 1+ /hpf; RBC Urine >75 /hpf (0-2); Squamous Epithelial Cell Urine Rare /hpf (Few); WBC Urine 0-3 /hpf (0-3)
[2022-07-15 02:38] LABS: Alanine Aminotransferase 43 U/L (16-63); Albumin Level 3.4 g/dL (3.4-5.0); Alkaline Phosphatase 59 U/L (46-116); Anion Gap 8 mmol/L (8-16); Aspartate Amino Transferase 26 U/L (15-37); Bilirubin,Total 0.4 mg/dL (0.00-1.00); Blood Urea Nitrogen 17 mg/dL (7-18); Calcium 8.6 mg/dL (8.5-10.1); Carbon Dioxide 29 mmol/L (21-32); Chloride 101 mmol/L (98-108); Estimated CRCL calculation 72 ml/min; Estimated Glomerular Filt Rate 46; Glucose 144 mg/dL (70-99); Lactic Acid Reflex 1.4 mmol/L (0.4-2.0); Lipase 152 U/L (73-393); Osmolality Calculated 290 mOsm/kg (285-295); Potassium 3.8 mmol/L (3.5-5.1); Sodium 138 mmol/L (136-145); Total Protein 7.4 g/dL (6.4-8.2)
[2022-07-15 03:00] VITALS: BP 138/74; PULSE 88; RESP 20; O2SAT 98
--- NOTE | 2022-07-15 03:59 | ED.ABDPAIN ---
HPI - Abdominal Pain General Chief Complaint: Abdominal Pain Stated Complaint: lower back pain Time Seen by Provider: 07/15/22 01:49 Source: patient and RN notes reviewed Mode of arrival: ambulatory Limitations: no limitations History of Present Illness MD elicited complaint: flank pain (left) Pertinent past history: kidney stones Onset (ago): hour(s) (6) Pain Consistency: constant Location: L flank Severity: moderate Pain scale (0-10): 7 Quality: cramping, aching and dull Radiation: none Migration to: no migration Exacerbating factors: nothing Relieving factors: nothing Associated symptoms: nausea Related Data Home Medications Medication Instructions Recorded Confirmed allopurinol 300 mg tablet 300 mg PO DAILY 06/27/22 07/15/22 irbesartan 300 mg tablet 300 mg PO DAILY 06/28/22 07/15/22 semaglutide 0.25 mg or 0.5 mg (2 0.5 mg subcut WEEKLY 06/28/22 07/15/22 mg/1.5 mL) subcutaneous pen injector (Ozempic) tramadol 50 mg tablet 50 mg PO Q6H PRN Headache 06/28/22 07/15/22 dihydroergotamine (Trudhesa) 1 spray intranasal ONCE PRN 07/15/22 07/15/22 Migraine Headache divalproex 500 mg tablet,extended 500 mg PO DAILY 07/15/22 07/15/22 release 24 hr indomethacin 25 mg capsule 25 mg PO TID 07/15/22 07/15/22 memantine 5 mg tablet See Rx Instructions .Route .COMPLEX 07/15/22 07/15/22 rizatriptan 10 mg tablet 10 mg PO PRN 07/15/22 07/15/22 ubrogepant 100 mg tablet (Ubrelvy) 100 mg PO PRN 07/15/22 07/15/22 ziprasidone HCl 20 mg capsule 20 mg PO BID PRN Migraine Headache 07/15/22 07/15/22 Allergies Allergy/AdvReac Type Severity Reaction Status Date / Time meperidine Allergy Severe Anaphylactic Verified 06/27/22 00:46 Shock morphine AdvReac Mild Nausea and Verified 06/27/22 00:46 Vomiting Review of Systems Review of Systems: All systems reviewed & are unremarkable except as noted in HPI and below Constitutional: Constitutional: Reports no additional constitutional complaints Eyes: Eyes: Reports no additional eye complaints ENT: Reports system reviewed and no additional complaints, except as documented Cardiovascular: Cardiovascular: Reports no additional cardiovascular complaints Respiratory: Respiratory: Reports no additional respiratory complaints Gastrointestinal: Gastrointestinal: Reports no additional gastrointestinal complaints Genitourinary: Comments: left flank pain Musculoskeletal: Musculoskeletal: Reports no additional musculoskeletal complaints Integumentary/Breasts: Skin/Breast: Reports system reviewed and no additional complaints, except as docu Neurologic: Reports system reviewed and no additional complaints, except as documented Psychiatric: Psychiatric: Reports no additional psychiatric complaints Endocrine: Endocrine: Reports no additional endocrine complaints Hematologic/Lymphatic: Hematologic/Lymphatic: Reports no additional hematologic/lymphatic complaints Allergic/Immunologic: Allergic/Immunologic: Reports no additional allergic/immunologic complaints PMFSH Past Medical History Medical History (Updated 07/17/22 @ 14:29 by Americo Morales MD) Chronic GERD Depression with anxiety Family history of colon cancer in mother Gout Hypertension Left renal stone Obesity BMI 57.4 Obstructive sleep apnea Repeated concussion of brain Seizure disorder Seizure disorder Surgical History Surgical History H/O cervical spine surgery H/O rhinoplasty History of tonsillectomy Total knee replacement status Family History Family History Mother Colon cancer Mitral valve replaced Hypertension Macular degeneration Father Malignant neoplasm of prostate Social History Social History Social History: The patient lives with his and has 1 child. 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
[2022-07-15] MEDS: HYDROcodone/acetaminophen (*CRX) 5-325 MG TABLET 1 TAB PO (04:04)
[2022-07-15] MEDS: cefTRIAXone 1 GM, LIDOCAINE HCL 1% LOCAL INJ 2.1 ML IM (04:05)
[2022-07-15 04:16] VITALS: BP 140/86; PULSE 78; RESP 18; TEMP 36.6; O2SAT 99
--- NOTE | 2022-07-15 09:33 | PC.NURSE ---
RADIOLOGIST CALLED AND WANTED PT INFORMED OF DILATED APPENDIX AND 2 MM KIDNEY STONE [phone] PT CALLED AND MADE AWARE OF RADIOLOGY REPORT
== END 2022-07-15 04:23 | disposition home or self-care (01) ==
PROVIDERS: Emergency Provider Emergency Medicine; PCP Internal Medicine
DX: N20.1 Calculus of ureter (principal); N39.0 Urinary tract infection, site not specified
CPT/HCPCS: 36415; 74176; 80053; 81001; 83605; 83690; 85025; 96372; 99284; A9270; J0696; J1885

== ENCOUNTER 2022-08-09 20:25 | Emergency (ER) | payer OTHER, SELFPAY ==
--- NOTE | ~2022-08-09 | CT_ITS ---
EXAMINATION: CT abdomen pelvis w con DATE: 08/10/2022 00:35 INDICATION: Abdominal pain. TECHNIQUE: Computed tomography (CT) of the abdomen and pelvis was performed with 100 mL Omnipaque 350 intravenous contrast. Automated exposure control and iterative reconstruction technique were employe d. The dose-length product was 1676.85 mGy-cm. COMPARISON: CT abdomen and pelvis 07/15/2022, 08/27/10 FINDINGS: The visualized portions of the lung bases demonstrate mild atelectasis. No pleural effusion . The heart size is normal. No pericardial effusion. The liver and gallbladder are normal. Chronic mi ld splenomegaly is noted. The pancreas, adrenal glands, and kidneys are normal. There is a 3 mm stone in distal left ureter. There is mild left hydroureter. There are no dilated loops of bowel. There ar e no dilated loops The appendix is normal. There is mild chronic anterior wedging of T12 and L1 vertebral bodies. There is mild thoracolumbar spondylosis. IMPRESSION: 1. 3 mm stone in distal left ureter with mild left hydroureter. Reviewed, dictated and finalized at location A. [employer]ISH[employer]
[2022-08-09 20:27] VITALS: BP 130/78; PULSE 85; RESP 18; TEMP 37.1; O2SAT 95
[2022-08-09 20:57] LABS: Basophils Absolute Auto 0.1 K/mm3 (0.0-0.1); Basophils Percent Auto 0.7 % (0.2-1.2); Eosinophils Absolute Auto 0.1 K/mm3 (0-0.3); Eosinophils Percent Auto 1.1 % (0-4.4); Hematocrit 40.4 % (42.0-52.0); Hemoglobin 14.3 g/dL (14.0-18.0); Immature Granulocyte Absolute 0.06 K/mm3 (0.00-0.031); Immature Granulocyte Percent A 0.5 % (0-0.5); Lymphocytes Absolute Auto 2.99 K/mm3 (0.9-3.2); Lymphocytes Percent Auto 23.8 % (18.3-44.2); Mean Corpuscular HGB Conc 35.4 g/dl (32-36); Mean Corpuscular Hemoglobin 31.8 pg (26-34); Mean Platelet Volume 10.5 fl (7.4-10.4); Monocytes Absolute Auto 0.9 K/mm3 (0.1-0.6); Monocytes Percent Auto 6.9 % (2.6-8.5); Neutrophils Absolute Auto 8.4 K/mm3 (1.3-6.7); Platelet Count Result 213 k/mm3 (150-375); Red Blood Count 4.49 M/mm3 (4.6-6.20); Red Cell Distribution Width 13.2 % (11.5-14.5); White Blood Count 12.6 K/mm3 (4.5-10.0)
[2022-08-09 21:09] LABS: Alanine Aminotransferase 37 U/L (6-50); Albumin Level 4.6 g/dL (3.5-5.1); Alkaline Phosphatase 61 U/L (38-126); Anion Gap 13 mmol/L (8-16); Aspartate Amino Transferase 41 U/L (17-59); Bilirubin,Total 0.5 mg/dL (0.2-1.3); Blood Urea Nitrogen 15 mg/dL (9-20); Calcium 9.2 mg/dL (8.4-10.2); Carbon Dioxide 28 mmol/L (22-30); Chloride 98 mmol/L (98-107); Estimated CRCL calculation 94 ml/min; Estimated Glomerular Filt Rate > 60; Glucose 94 mg/dL (65-110); Lipase 98 U/L (23-300); Potassium 3.7 mmol/L (3.4-5.0); Sodium 139 mmol/L (137-145)
[2022-08-09 23:50] LABS: Appearance Urine Cloudy (Clear); Bilirubin Urine Negative (Negative); Blood Urine 3+ (Negative); Color Urine Yellow (Yellow); Glucose Urine UA Negative (Negative); Ketones Urine Trace mg/dL (Negative); Leukocyte Esterase Ur Negative LEU/UL (Negative); Nitrate Urine Negative (Negative); Protein Urine Negative (Negative); Specific Grav Ur 1.025 (1.001-1.035)
[2022-08-09 23:58] LABS: Calcium Oxalate Crystals Urine Present /hpf; Mucus Urine Rare /lpf; RBC Urine >75 /hpf (0-2); Squamous Epithelial Cell Urine Rare /hpf (Few)
[2022-08-10] MEDS: FAMOTIDINE 20 MG/2 ML VIAL IV PUSH (00:03)
[2022-08-10] MEDS: ONDANSETRON INJ 4 MG/2 ML VIAL IV PUSH (00:03)
[2022-08-10] MEDS: SODIUM CHLORIDE 0.9% IV 1,000 ML 999 ML IV CONT (00:03)
[2022-08-10] MEDS: HYDROmorphone HCL INJ (*CRX) 1 MG/ML SYR 0.5 MG IV PUSH (00:03)
[2022-08-10 00:05] LABS: Add Urine Microscopic? YES
--- NOTE | 2022-08-10 01:08 | ED.ABDPAIN ---
HPI - Abdominal Pain General Chief Complaint: Abdominal Pain Stated Complaint: right abd pain Time Seen by Provider: 08/09/22 23:33 Source: patient Mode of arrival: ambulatory Limitations: no limitations History of Present Illness HPI narrative: 56-year-old male presents today with complaints of right lower quadrant pain that he noticed today. Patient was recently seen at [facility] in June for renal calculi where he states on the CT they noticed to heal clavicular. Wei. Patient at this time was discharged and told to follow-up with the ER if any pain. Patient then presented today with complaints of right lower quadrant pain. Patient denies fevers, body aches, chills, urinary symptoms like dysuria, or hematuria. Patient does state he has been doing some heavy lifting today. Denies any aggravating factors states the pain is steady but wavers in intensity. Related Data Home Medications Medication Instructions Recorded Confirmed allopurinol 300 mg tablet 300 mg PO DAILY 06/27/22 07/15/22 irbesartan 300 mg tablet 300 mg PO DAILY 06/28/22 07/15/22 semaglutide 0.25 mg or 0.5 mg (2 0.5 mg subcut WEEKLY 06/28/22 07/15/22 mg/1.5 mL) subcutaneous pen injector (Ozempic) tramadol 50 mg tablet 50 mg PO Q6H PRN Headache 06/28/22 07/15/22 dihydroergotamine (Trudhesa) 1 spray intranasal ONCE PRN 07/15/22 07/15/22 Migraine Headache divalproex 500 mg tablet,extended 500 mg PO DAILY 07/15/22 07/15/22 release 24 hr indomethacin 25 mg capsule 25 mg PO TID 07/15/22 07/15/22 memantine 5 mg tablet See Rx Instructions .Route .COMPLEX 07/15/22 07/15/22 rizatriptan 10 mg tablet 10 mg PO PRN 07/15/22 07/15/22 ubrogepant 100 mg tablet (Ubrelvy) 100 mg PO PRN 07/15/22 07/15/22 ziprasidone HCl 20 mg capsule 20 mg PO BID PRN Migraine Headache 07/15/22 07/15/22 Allergies Allergy/AdvReac Type Severity Reaction Status Date / Time meperidine Allergy Severe Anaphylactic Verified 06/27/22 00:46 Shock morphine AdvReac Mild Nausea and Verified 06/27/22 00:46 Vomiting Review of Systems Review of Systems: CONSTITUTIONAL: Denies fever, chills, or sweats. EYES: Denies visual changes, redness, or discharge. ENT: Denies rhinorrhea, congestion, sore throat, or otalgia. CARDIOVASCULAR: Denies chest pain, palpitations, or edema. RESPIRATORY: Denies cough or dyspnea. GASTROINTESTINAL: Right lower quadrant pain. Denies nausea, vomiting, or diarrhea. GENITOURINARY: Denies dysuria or hematuria. SKIN: Denies rash or itching. MUSCULOSKELETAL: Denies back pain, joint pain, or myalgia. [facility] Past Medical History Medical History Chronic GERD Depression with anxiety Family history of colon cancer in mother Gout Hypertension Left renal stone Obesity BMI 57.4 Obstructive sleep apnea Repeated concussion of brain Seizure disorder Seizure disorder Surgical History Surgical History H/O cervical spine surgery H/O rhinoplasty History of tonsillectomy Total knee replacement status Family History Family History Mother Colon cancer Mitral valve replaced Hypertension Macular degeneration Father Malignant neoplasm of prostate Social History Social History Social History: The patient lives with his and has 1 child. 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 His is the durable power family law attorney for healthcare. The patient is lifelong nonsmoker. He does not use any alcohol marijuana or illicit drugs. Code status full code Smoking status: Never smoker Alcohol intake: current Drinks per week: 1 Alcohol use details: 2 drinks monthly Substance use: never Substance use type: does not use Spiritual care concerns: No Exam Tylor
[2022-08-10 01:16] VITALS: BP 139/91; PULSE 79; RESP 18; O2SAT 97
== END 2022-08-10 01:41 | disposition home or self-care (01) ==
PROVIDERS: Emergency Medicine; Emergency Provider Nurse Practitioner Family; PCP Internal Medicine
DX: N39.0 Urinary tract infection, site not specified (principal); I10 Essential (primary) hypertension; G40.909 Epilepsy, unspecified, not intractable, without status epilepticus; K21.9 Gastro-esophageal reflux disease without esophagitis; M10.9 Gout, unspecified; G47.33 Obstructive sleep apnea (adult) (pediatric); E66.9 Obesity, unspecified; Z68.43 Body mass index [BMI] 50.0-59.9, adult; Z87.442 Personal history of urinary calculi; Z96.659 Presence of unspecified artificial knee joint; N13.2 Hydronephrosis with renal and ureteral calculous obstruction
CPT/HCPCS: 36415; 74177; 80053; 81001; 83690; 85025; 87086; 96361; 96374; 96375; 99284; J1170; J2405; J7030; Q9967

== ENCOUNTER 2022-12-05 15:08 | Emergency (ER) | payer OTHER, SELFPAY ==
--- NOTE | ~2022-12-05 | XR_ITS ---
AP and lateral views of the right hip Clinical history: Pain Findings: No acute fracture or dislocation is seen. Osseous alignment is anatomic. Right hip joint is preserved. Soft tissues are unremarkable. Impression: No significant abnormality is seen. Reviewed, dictated and finalized at location M. Impression: No significant abnormality is seen.
--- NOTE | ~2022-12-05 | CT_ITS ---
Noncontrast CT scan of the right hip CLINICAL HISTORY: Pain TECHNIQUE: Axial noncontrast imaging of the right hip was performed. Sagittal and coronal reformatted images were reconstructed. Dose reduction technique was used on this scan by utilizing automated exp osure control and iterative reconstruction technique. The dose-length product (DLP) was 1293.94 mGy-c m. Findings: No acute fracture or dislocation seen. There is mild degenerative change at the superolater al aspect of the right hip joint. Right SI joint is intact. Visualized musculature about the right hip is unremarkable. No soft tissue mass or fluid collection i dentified. Prostate gland is enlarged. IMPRESSION: No acute fracture or dislocation. Mild degenerative change at the superolateral aspect of the right hip joint. Reviewed, dictated and finalized at location .
[2022-12-05 15:08] VITALS: BP 129/81; PULSE 84; RESP 20; TEMP 36.4; O2SAT 97
--- NOTE | 2022-12-05 15:24 | ED.LOWEXIN ---
HPI - Extremity Injury (Lower) General Chief Complaint: Extremity Injury, Lower Stated Complaint: hip pain Time Seen by Provider: 12/05/22 15:20 Source: patient and RN notes reviewed Mode of arrival: ambulatory Limitations: no limitations History of Present Illness HPI Narrative: patient states that he was walking in the y[place] when he slipped on something in the yd and twisted his right hip. He said he felt a pop. He has had significant pain since then. MD complaint: hip injury Onset (ago): day(s) (1) Injury: Right: hip Type of Injury: hyperflexion Place: home Severity: severe Relieving factors: rest Exacerbating factors: weight bearing and movement Context: walking Associated symptoms: snap/pop sensation and able to partially bear weight Other symptoms: none Related Data Home Medications Medication Instructions Recorded Confirmed allopurinol 300 mg tablet 300 mg PO DAILY 06/27/22 12/05/22 irbesartan 300 mg tablet 300 mg PO DAILY 06/28/22 12/05/22 semaglutide 0.25 mg or 0.5 mg (2 0.5 mg subcut WEEKLY 06/28/22 12/05/22 mg/1.5 mL) subcutaneous pen injector ([employer]) divalproex 500 mg tablet,extended 500 mg PO DAILY 07/15/22 12/05/22 release 24 hr memantine 5 mg tablet See Rx Instructions .Route .COMPLEX 07/15/22 12/05/22 rizatriptan 10 mg tablet 10 mg PO PRN 07/15/22 12/05/22 ubrogepant 100 mg tablet (Ubrelvy) 100 mg PO PRN 07/15/22 12/05/22 baclofen 10 mg tablet 10 mg PO BID 12/05/22 12/05/22 duloxetine 30 mg capsule,delayed 30 mg PO BID 12/05/22 12/05/22 release meloxicam 7.5 mg tablet 7.5 mg PO BID 12/05/22 12/05/22 prochlorperazine maleate 10 mg 10 mg PO DAILY 12/05/22 12/05/22 tablet quetiapine 100 mg tablet 100 mg PO DAILY 12/05/22 12/05/22 Allergies Allergy/AdvReac Type Severity Reaction Status Date / Time meperidine Allergy Severe Anaphylactic Verified 12/05/22 15:20 Shock morphine AdvReac Mild Nausea and Verified 12/05/22 15:20 Vomiting Review of Systems Review of Systems: All systems reviewed & are unremarkable except as noted in HPI and below PMFSH Past Medical History Medical History Chronic GERD Depression with anxiety Family history of colon cancer in mother Gout Hypertension Left renal stone Obesity BMI 57.4 Obstructive sleep apnea Repeated concussion of brain Seizure disorder Seizure disorder Surgical History Surgical History H/O cervical spine surgery H/O rhinoplasty History of tonsillectomy Total knee replacement status Family History Family History Mother Colon cancer Mitral valve replaced Hypertension Macular degeneration Father Malignant neoplasm of prostate Social History Social History Social History: The patient lives with his and has 1 child. 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 His is the durable power sports attorney for healthcare. The patient is lifelong nonsmoker. He does not use any alcohol marijuana or illicit drugs. Code status full code Smoking status: Never smoker Alcohol intake: current Drinks per week: 1 Alcohol use details: 2 drinks monthly Substance use: never Substance use type: does not use Living arrangements: with family Spiritual care concerns: No Exam Const: General: healthy appearing, no acute distress and alert Nutritional Appearance: well nourished and obese morbidly obese Orientation/consciousness: patient oriented x3 Limitations: no limitations HENMT: Head: normal to inspection Ears: external ears normal Face/Nose/Sinus: Normal external nose present Face and sinus: normal facial exam Mouth: Yes moist mucous membranes Eyes: Conjunctivae: conjunctivae normal Pupils: Equal, round and reactive pupils p
[2022-12-05] MEDS: KETOROLAC (*BKC) 60 MG/2 ML VIAL IM (16:15)
[2022-12-05 17:00] VITALS: BP 131/79; PULSE 63; RESP 18; O2SAT 97
[2022-12-05] MEDS: HYDROcodone/acetaminophen (*CRX) 5-325 MG TABLET 1 TAB PO (17:25)
== END 2022-12-05 17:30 | disposition home or self-care (01) ==
PROVIDERS: Emergency Provider Emergency Medicine; PCP Internal Medicine
DX: S76.011A Strain of muscle, fascia and tendon of right hip, initial encounter (principal); I10 Essential (primary) hypertension; Z79.1 Long term (current) use of non-steroidal anti-inflammatories (NSAID); W01.0XXA Fall on same level from slipping, tripping and stumbling without subsequent striking against object, initial encounter; Y92.007 Garden or yard of unspecified non-institutional (private) residence as the place of occurrence of the external cause
CPT/HCPCS: 73502; 73700; 96372; 99284; A9270; J1885

== ENCOUNTER 2023-01-19 11:03 | Outpatient (RCR) | payer OTHER, SELFPAY ==
--- NOTE | 2023-01-19 13:28 | PTOPEVAL1 ---
Assessment and note entered by Katharine Lobo DPT Evaluation Information Assessment Status Evaluation Diagnosis dizziness, impaired eye focus Onset 01/10/23 Subjective Information Patient reports he gets dizziness and headaches as well as difficulty with focusing. 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 He reports he has had 12 confirmed concussions. He reports difficulty with driving, focusing on screen, and poor balance. Prior to February he was symptomatic but not as progressed as he is now Reported Pain Level Pain Score 4: Self Report Assessment PT Clinical Summary Patient is a 57 year old male who presents to PT with dizziness and visual difficulties. Patient demonstrates increased convergance distance, under shooting with horizontal saccades and decreased balance impairing his ability to drive and walk without impaired balance. He would benefit from skilled PT to address impairments and returnn to [facility]. Plan of Care Interventions Gait Training,Hot Pack/Cold Pack,Mechanical Traction,Neuro Re-education,Patient/Caregiver Educati,Therapeutic Activities,Therapeutic Exercise PT Services Indicated Yes Treatment Frequency and 2x weekly for 10 visits Duration These treatments will address the objective and functional deficits as defined above. The patient will be advanced safely and appropriately in order for the patient to progress towards his/her prior level of function. Additional exercises will be introduced and as well as a comprehensive home exercise program upon discharge, if needed, ?to ensure carryover of functional gains achieved in the clinic. This treatment plan has been reviewed and agreement upon by the patient.
== END 2023-02-17 16:09 | disposition home or self-care (01) ==
LOC: CHSPT 11:03
DX: F07.81 Postconcussional syndrome (principal); H81.90 Unspecified disorder of vestibular function, unspecified ear
CPT/HCPCS: 97112; 97162; 97530

== ENCOUNTER 2023-02-04 11:04 | Outpatient (CLI) | payer OTHER, SELFPAY ==
--- NOTE | ~2023-02-04 | CT_ITS ---
EXAMINATION: CTA chest PE protocol DATE: 02/04/2023 13:35 INDICATION: Soreness of breath, elevated d-dimer and right chest pain deep to the scapula with deep i nspiration TECHNIQUE: Computed tomography (CT) pulmonary angiogram of the chest was performed with 200 mL Omnipa que-350 intravenous contrast. Additional 3D reconstructions utilizing coronal maximum intensity proje ction (MIP) were performed. Automated exposure control and iterative reconstruction technique were em ployed. The dose-length product was 1671.99 mGy-cm. COMPARISON: None FINDINGS: Despite repeat dosing there is suboptimal contrast opacification of the pulmonary arteries which sharmin g with streak artifact and quantum mottle related to body habitus decreases sensitivity for pulmonary embolism, mildly in the segmental pulmonary arteries and more prominently in the subsegmental pulmon alonzo arteries. No pulmonary embolism identified. Scattered groundglass opacities related atelectasis o n the initial imaging which clears with a larger inspiration on the repeat imaging. No pneumonia, pul monary edema, pleural effusion or pneumothorax. Heart size is normal. No pericardial effusion. Thorac ic aorta is normal in caliber with no dissection. No pathologically enlarged thoracic lymphadenopathy . Visualized upper abdomen is unremarkable. No rib fractures identified. Mild upper thoracic levocurv ature. Minimal thoracic spondylosis. Lower cervical anterior spinal fusion with anterior plate and sc rew fixation seen at C7 and extending into the more cephalad cervical spine beyond the region of the [id number]. IMPRESSION: 1. No pulmonary embolism or other acute cardiopulmonary disease. Reviewed, dictated and finalized at location A.
[2023-02-04 11:24] LABS: Basophils Absolute Auto 0.07 K/mm3 (0.00-0.10); Basophils Percent Auto 0.9 % (0.0-1.0); Eosinophils Absolute Auto 0.11 K/mm3 (0.02-0.50); Eosinophils Percent Auto 1.5 % (1.0-6.0); Hematocrit 39.6 % (40.0-54.0); Hemoglobin 13.7 g/dL (14.0-18.0); Immature Granulocyte Absolute 0.04 K/mm3 (0.00-0.00); Immature Granulocyte Percent A 0.5 % (0.0-0.0); Lymphocytes Absolute Auto 1.93 K/mm3 (1.10-4.50); Lymphocytes Percent Auto 25.8 % (18.0-42.0); Mean Corpuscular HGB Conc 34.6 g/dL (32.0-36.0); Mean Corpuscular Hemoglobin 32.3 pg (27.0-31.0); Mean Corpuscular Volume 93.4 fL (78.0-102.0); Mean Platelet Volume 10.9 fl (8.7-11.0); Monocytes Absolute Auto 0.55 K/mm3 (0.10-0.90); Monocytes Percent Auto 7.3 % (2.0-11.0); Neutrophils Absolute Auto 4.8 K/mm3 (1.7-7.2); Platelet Count Result 165 K/mm3 (150-420); Red Blood Count 4.24 M/mm3 (4.70-6.10); Red Cell Distribution Width 13.2 % (11.6-14.4); White Blood Count 7.5 K/mm3 (4.8-10.8)
[2023-02-04 11:42] LABS: D Dimer 0.66 mg/L (0.19-0.50)
[2023-02-04 11:44] LABS: Alanine Aminotransferase 36 U/L (16-63); Albumin Level 3.5 g/dL (3.4-5.0); Alkaline Phosphatase 63 U/L (46-116); Anion Gap 7 mmol/L (8-16); Aspartate Amino Transferase 22 U/L (15-37); Bilirubin,Total 0.5 mg/dL (0.00-1.00); Blood Urea Nitrogen 7 mg/dL (7-18); Calcium 8.6 mg/dL (8.5-10.1); Carbon Dioxide 30 mmol/L (21-32); Chloride 105 mmol/L (98-108); Estimated Glomerular Filt Rate > 60; Glucose 114 mg/dL (70-99); Osmolality Calculated 293 mOsm/kg (285-295); Potassium 4.1 mmol/L (3.5-5.1); Sodium 142 mmol/L (136-145); Total Protein 7.9 g/dL (6.4-8.2); Uric Acid 5.8 mg/dL (3.5-7.2)
[2023-02-04 11:45] LABS: CRP < 0.5 mg/dL (0.0-0.9)
[2023-02-04 11:57] LABS: Rheumatoid Factor Screen Negative (Negative)
[2023-02-04 13:30] LABS: Ferritin 320 ng/mL (26-388); Iron 76 ug/dL (65-175); Percent Iron Saturation 26 % (12-57)
== END 2023-02-04 11:05 | disposition home or self-care (01) ==
PROVIDERS: PCP Internal Medicine; Visit Provider Nurse Practitioner Family
DX: R06.02 Shortness of breath (principal); M54.50 Low back pain, unspecified; R79.1 Abnormal coagulation profile; D64.9 Anemia, unspecified
CPT/HCPCS: 36415; 71275; 80053; 82728; 83540; 83550; 84550; 85025; 85380; 86038; 86140; 86430; Q9967

== ENCOUNTER 2023-02-04 23:20 | Emergency (ER) | payer OTHER, SELFPAY ==
--- NOTE | ~2023-02-04 | CT_ITS ---
EXAMINATION: CT abdomen pelvis wo con DATE: 02/04/2023 23:43 INDICATION: Right flank pain TECHNIQUE: Computed tomography (CT) of the abdomen and pelvis was performed without intravenous contr ast. The dose-length product was 1683.95 mGy-cm. Automated exposure control and iterative reconstruct ion technique were employed. COMPARISON: CT dated 08/10/2022. FINDINGS: Lung bases are unremarkable. No significant pleural or pericardial effusion. Heart size nor mal. Lung bases are unremarkable. No significant vascular abnormality. No lymphadenopathy. The liver, spleen, pancreas, adrenal glands are unremarkable. There is residual contrast in the right renal col lecting systems and ureters which limits evaluation for renal stones. No definite stones identified. Nonobstructive bowel pattern. No free air or free fluid. There is residual contrast in the bladder. M ild lower thoracic and lumbar spondylosis. Mild superior endplate compression deformities of T12 and L1, likely chronic. IMPRESSION: 1. No acute abdominal abnormality. Limited evaluation for renal stones due to residual contrast in th e renal collecting systems. Reviewed, dictated and finalized at location A. IMPRESSION: 1. No acute abdominal abnormality. Limited evaluation for renal stones due to r esidual contrast in the renal collecting systems.
--- NOTE | 2023-02-04 23:24 | ED.ABDPAIN ---
HPI - Abdominal Pain General Chief Complaint: Abdominal Pain Stated Complaint: Right Flank Pain Time Seen by Provider: 02/04/23 23:22 Source: patient and RN notes reviewed Mode of arrival: ambulatory Limitations: no limitations History of Present Illness HPI narrative: patient has been having flank pain for the last 2-3 days. Went to his primary care physician today and also complained of some shortness of breath associated with the flank pain. Consequently had blood work done which showed elevated D-dimer. He said he had 2s CT scans done but only 1 is reported in the chart which is the chest CTA. That was negative for pulmonary embolism. He says the pain got significantly worse about 3 hours prior to arrival. It is in his right flank. He notes not have a history of kidney stones. He says he had some mild nausea. No fever no chills, no vomiting no diarrhea. MD elicited complaint: flank pain Pertinent past history: none Onset (ago): hour(s) (2-3) Pain Consistency: intermittent Location: R flank Severity: severe Quality: stabbing and sharp Radiation: none Migration to: no migration Exacerbating factors: nothing Relieving factors: nothing Associated symptoms: nausea Related Data Home Medications Medication Instructions Recorded Confirmed allopurinol 300 mg tablet 300 mg PO DAILY 06/27/22 02/04/23 irbesartan 300 mg tablet 300 mg PO DAILY 06/28/22 02/04/23 semaglutide 0.25 mg or 0.5 mg (2 0.5 mg subcut WEEKLY 06/28/22 02/04/23 mg/1.5 mL) subcutaneous pen injector (Ozempic) divalproex 500 mg tablet,extended 500 mg PO DAILY 07/15/22 02/04/23 release 24 hr memantine 5 mg tablet See Rx Instructions .Route .COMPLEX 07/15/22 02/04/23 rizatriptan 10 mg tablet 10 mg PO PRN 07/15/22 02/04/23 ubrogepant 100 mg tablet (Ubrelvy) 100 mg PO PRN 07/15/22 02/04/23 baclofen 10 mg tablet 10 mg PO BID 12/05/22 02/04/23 duloxetine 30 mg capsule,delayed 30 mg PO BID 12/05/22 02/04/23 release meloxicam 7.5 mg tablet 7.5 mg PO BID 12/05/22 02/04/23 prochlorperazine maleate 10 mg 10 mg PO DAILY 12/05/22 02/04/23 tablet quetiapine 100 mg tablet 100 mg PO DAILY 12/05/22 02/04/23 Allergies Allergy/AdvReac Type Severity Reaction Status Date / Time meperidine Allergy Severe Anaphylactic Verified 02/04/23 23:57 Shock morphine AdvReac Mild Nausea and Verified 02/04/23 23:57 Vomiting PMFSH Past Medical History Medical History Chronic GERD Depression with anxiety Family history of colon cancer in mother Gout Hypertension Left renal stone Obesity BMI 57.4 Obstructive sleep apnea Repeated concussion of brain Seizure disorder Seizure disorder Surgical History Surgical History H/O cervical spine surgery H/O rhinoplasty History of tonsillectomy Total knee replacement status Family History Family History Mother Colon cancer Mitral valve replaced Hypertension Macular degeneration Father Malignant neoplasm of prostate Social History Social History Social History: The patient lives with his and has 1 child. 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 His is the durable power supervisor boat outfitting for healthcare. The patient is lifelong nonsmoker. He does not use any alcohol marijuana or illicit drugs. Code status full code Smoking status: Never smoker Alcohol intake: current Drinks per week: 1 Alcohol use details: 2 drinks monthly Substance use: never Substance use type: does not use Living arrangements: with family Spiritual care concerns: No Exam Const: General: healthy appearing, no acute distress and alert Nutritional Appearance: well nourished and obese morbidly obese Orientation/consciousness: patient
[2023-02-04 23:34] VITALS: BP 181/100; PULSE 63; RESP 22; TEMP 37; O2SAT 97
[2023-02-04 23:42] LABS: Appearance Urine Clear (Clear); Bilirubin Urine Negative (Negative); Blood Urine Negative (Negative); Color Urine Yellow (Yellow); Glucose Urine UA Negative (Negative); Ketones Urine Negative (Negative); Leukocyte Esterase Ur Negative LEU/UL (Negative); Nitrate Urine Negative (Negative); Protein Urine Negative (Negative); Specific Grav Ur 1.025 (1.010-1.020); Urobilinogen Urine 0.2 mg/dL (0.2-1.0); pH Urine 5.5 (5.0-8.0)
[2023-02-04 23:43] LABS: Add Urine Microscopic? NO
[2023-02-04] MEDS: KETOROLAC (*BKC) 60 MG/2 ML VIAL IM (23:48)
[2023-02-04 23:56] VITALS: BP 159/95; PULSE 57; RESP 21; O2SAT 97
[2023-02-05] MEDS: HYDROmorphone HCL INJ (*CRX) 2 MG/ML VIAL 1 MG IM (00:59)
[2023-02-05 01:31] VITALS: BP 159/91; PULSE 76; RESP 21; TEMP 36.7; O2SAT 97
== END 2023-02-05 01:33 | disposition home or self-care (01) ==
PROVIDERS: Emergency Provider Emergency Medicine; PCP Internal Medicine
DX: R10.9 Unspecified abdominal pain (principal); R06.02 Shortness of breath; I10 Essential (primary) hypertension; Z79.1 Long term (current) use of non-steroidal anti-inflammatories (NSAID)
CPT/HCPCS: 74176; 81003; 96372; 99284; J1170; J1885

== ENCOUNTER 2023-04-01 17:39 | Emergency (ER) | payer OTHER, SELFPAY ==
--- NOTE | ~2023-04-01 | CT_ITS ---
EXAMINATION: CT brain wo con DATE: 04/01/2023 18:09 INDICATION: HIT TOP OF HEAD ON SWING . TECHNIQUE: Computed tomography (CT) of the head was performed without intravenous contrast. The mA wa s adjusted according to patient size. Iterative reconstruction technique was employed. The dose-lengt h product was 681.00 mGy-cm. COMPARISON: 11/10/2021. FINDINGS: No acute intracranial hemorrhage or extra-axial fluid collection. No hydrocephalus, mass, or herniation. No acute ischemic infarct. Unremarkable dural venous sinus attenuation. No acute osseous abnormality. The aerated spaces are clear. Mild atrophy and chronic white matter change. Atherosclerotic intracranial calcification. IMPRESSION: No acute intracranial process. Reviewed, dictated and finalized at location K.
[2023-04-01 17:41] VITALS: BP 153/82; PULSE 75; RESP 19; TEMP 36.6; O2SAT 98
--- NOTE | 2023-04-01 17:50 | ED.HEATRA ---
HPI - Head Injury General Chief complaint: Head Injury Stated complaint: Hit head on swing set, mowing Time Seen by Provider: 04/01/23 17:50 Source: patient and RN notes reviewed Mode of arrival: ambulatory Limitations: no limitations History of Present Illness HPI Narrative: Patient has a history of concussions in the past. Today was mowing and struck his head accidentally on a wooden swaying. Since then he has had nausea and vomiting x2. He called his neurologist and he was sent in here for further evaluation. Complaint: head injury Onset (ago): hour(s) (2) Place: home Loss of Consciousness: no Location of injury: frontal Severity: mild Quality: dull and aching Radiation: none Other Injuries: none Associated symptoms: vomiting Related Data Home Medications Medication Instructions Recorded Confirmed allopurinol 300 mg tablet 300 mg PO DAILY 06/27/22 04/01/23 irbesartan 300 mg tablet 300 mg PO DAILY 06/28/22 04/01/23 divalproex 500 mg tablet,extended 500 mg PO DAILY 07/15/22 04/01/23 release 24 hr memantine 5 mg tablet 10 mg PO BID 07/15/22 04/01/23 rizatriptan 10 mg tablet 10 mg PO PRN 07/15/22 04/01/23 ubrogepant 100 mg tablet (Ubrelvy) 100 mg PO PRN 07/15/22 04/01/23 baclofen 10 mg tablet 10 mg PO BID 12/05/22 04/01/23 duloxetine 30 mg capsule,delayed 60 mg PO BID 12/05/22 04/01/23 release meloxicam 7.5 mg tablet 7.5 mg PO BID 12/05/22 04/01/23 prochlorperazine maleate 10 mg 10 mg PO DAILY 12/05/22 04/01/23 tablet quetiapine 100 mg tablet 100 mg PO DAILY 12/05/22 04/01/23 Allergies Allergy/AdvReac Type Severity Reaction Status Date / Time meperidine Allergy Severe Anaphylactic Verified 04/01/23 18:29 Shock morphine AdvReac Mild Nausea and Verified 04/01/23 18:29 Vomiting PMFSH Past Medical History Medical History Chronic GERD Depression with anxiety Family history of colon cancer in mother Gout Hypertension Left renal stone Obesity BMI 57.4 Obstructive sleep apnea Repeated concussion of brain Seizure disorder Seizure disorder Surgical History Surgical History H/O cervical spine surgery H/O rhinoplasty History of tonsillectomy Total knee replacement status Family History Family History Mother Colon cancer Mitral valve replaced Hypertension Macular degeneration Father Malignant neoplasm of prostate Social History Social History Social History: The patient lives with his and has 1 child. 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 His is the durable power health care attorney for healthcare. The patient is lifelong nonsmoker. He does not use any alcohol marijuana or illicit drugs. Code status full code Smoking status: Never smoker Alcohol intake: current Drinks per week: 1 Alcohol use details: 2 drinks monthly Substance use: never Substance use type: does not use Living arrangements: with family Spiritual care concerns: No Exam Const: General: healthy appearing, no acute distress and alert Nutritional Appearance: obese Orientation/consciousness: patient oriented x3 Limitations: no limitations HENMT: Head: contusion vertex Ears: external ears normal Face/Nose/Sinus: Normal external nose present Face and sinus: normal facial exam Mouth: Yes moist mucous membranes Eyes: Conjunctivae: conjunctivae normal Pupils: Equal, round and reactive pupils present EOM: EOMs intact bilaterally Neck: Neck: normal visual inspection Resp: Effort & Inspection: normal respiratory effort Auscultation: clear to auscultation bilaterally Cardio: Rate: regular rate Rhythm: regular rhythm GI: GI Palp: Yes Soft to palpation and No Tenderness to palpation present (GI) Auscultati
[2023-04-01 18:27] VITALS: BP 149/74; PULSE 76; RESP 20; TEMP 36.6; O2SAT 99
== END 2023-04-01 18:38 | disposition home or self-care (01) ==
PROVIDERS: Emergency Provider Emergency Medicine; PCP Internal Medicine
DX: S00.03XA Contusion of scalp, initial encounter (principal); I10 Essential (primary) hypertension; Z79.1 Long term (current) use of non-steroidal anti-inflammatories (NSAID); W22.8XXA Striking against or struck by other objects, initial encounter; Y92.007 Garden or yard of unspecified non-institutional (private) residence as the place of occurrence of the external cause
CPT/HCPCS: 70450; 99284

== ENCOUNTER 2023-11-16 16:09 | Outpatient (RCR) | payer OTHER, SELFPAY ==
--- NOTE | 2023-11-11 14:07 | PCPTNOTE ---
patient cancelled due to being out of town
--- NOTE | 2023-11-16 16:56 | OPREHPOC ---
Outpatient Therapy Plan of Care This is a Multidisciplinary Plan of Care that may contain components documented by all disciplines (PT, OT, and ST.) PT Problem 1 PT Problem #1 Knowledge Deficit PT Goal 1 Goal 1. independent and compliant with HEP Target Visit 3 PT Problem 2 PT Problem #2 Pain PT Goal 1 Goal 1. decrease pain at worst to 2/10 or less in the R knee and posterior R thigh Target Visit 6 PT Problem 3 PT Problem #3 Impaired Range of Motion PT Goal 1 Goal 1. -5 degrees from 0 active L knee extension or better 2. >115 degrees or better active L knee flexion Target Visit 6 PT Problem 4 PT Problem #4 Impaired Strength PT Goal 1 Goal 1. 4+/5 or better R hip flex 2. 5/5 R knee strength Target Visit 6 PT Problem 5 PT Problem #5 Impaired Functional Mobil PT Goal 1 Goal 1. LEFS to display less than 35% functional deficits 2. patient to report no tenderness to palpation of the R posterior thigh 3. patient to ambulate with normal gait mechanics and no pain for 30 minutes or more in the community Target Visit 6
--- NOTE | 2023-11-16 16:56 | PTOPEVAL1 ---
Assessment and note entered by JT File, PT Evaluation Information Assessment Status Evaluation Diagnosis s/p arthroscopic loose body removal of the R knee Onset 10/25/23 Subjective Information patient reports he had an injury to the R knee on 10/09. he reports he felt a big pop in the knee getting up from bed to get his phone. he reports he had a lot of paint after the pop and had an MRI that showed a loose body in the R knee. he had this removed on 10/25/23. he reports since surgery he has trouble with increased weight bearing activities. he reports he also still has a sharp pain when rolling over the L side while sleeping. he reports he has been doing quad sets and light exercises at home. he reports the majority of his pain still is on the back side of the knee up to the hip. Reported Pain Level Pain Score 4: Self Report Assessment PT Clinical Summary mr. orourke is a 58 yo man who presents to skilled PT services for evaluation and treatment of R knee pain. he had surgery on 10/25/23 to remove a loose body found in the knee after an injury getting out of bed at home. he presents with decreased R LE active ROM, weakness of the R hip and knee, and abnormal gait mechanics. he also presents with tightness and tenderness of the R lateral hamstrings indicating a possible hamstrings tendonitis. continued skilled PT is indicated to address his objective/functional deficits and to allow patient to return to prior activities to improve his quality of life. Plan of Care Interventions Electrical Stimulation,Gait Training,Hot Pack/Cold Pack,Manual Therapy,Neuro Re-education,Patient/ Caregiver Educati,Therapeutic Activities, Therapeutic Exercise,Other Other Interventions dry needling PT Services Indicated Yes Treatment Frequency and 3x weekly for 6 visits Duration These treatments will address the objective and functional deficits as defined above. The patient will be advanced safely and appropriately in order for the patient to progress towards his/her prior level of function. Additional exercises will be introduced and as well as a comprehensive home exercise program upon discharge, if needed, ?to ensure carryover of functional gains achieved in the clinic. This treatment plan has been reviewed and agreement upon by the patient.
--- NOTE | 2023-11-23 17:51 | PCPTNOTE ---
patient called and cancelled therapy today. he is sick.
--- NOTE | 2024-06-12 11:01 | PCPTNOTE ---
Pt only attended 2 skilled PT visits and was last seen on 11/21/23. She will be discharged. -Janessa Barnett, PT
== END 2023-11-21 23:59 | disposition home or self-care (01) ==
LOC: CHSPT 16:09
PROVIDERS: Visit Provider Orthopaedic Surgery
DX: Z48.89 Encounter for other specified surgical aftercare (principal); M23.41 Loose body in knee, right knee
CPT/HCPCS: 97110; 97140; 97161

== ENCOUNTER 2024-02-27 12:11 | Outpatient (CLI) | payer OTHER, SELFPAY ==
--- NOTE | ~2024-02-27 | XR_ITS ---
EXAMINATION: XR chest 2V DATE: 02/27/2024 12:36 INDICATION: Cough and fever. Shortness of breath. TECHNIQUE: Frontal and lateral views of the chest were obtained. COMPARISON: Chest 2 views 06/27/2022 FINDINGS: There is no pneumonia, pleural effusion, or pneumothorax. The heart size is normal. There a re changes of anterior fusion procedure in cervical spine. IMPRESSION: 1. No acute cardiopulmonary disease. Reviewed, dictated and finalized at location A.
[2024-02-27 12:30] LABS: Basophils Absolute Auto 0.06 K/mm3 (0.00-0.10); Basophils Percent Auto 0.7 % (0.0-1.0); Eosinophils Absolute Auto 0.15 K/mm3 (0.02-0.50); Eosinophils Percent Auto 1.7 % (1.0-6.0); Hematocrit 43.7 % (40.0-54.0); Hemoglobin 15.5 g/dL (14.0-18.0); Immature Granulocyte Absolute 0.07 K/mm3 (0.00-0.00); Immature Granulocyte Percent A 0.8 % (0.0-0.0); Lymphocytes Percent Auto 29.6 % (18.0-42.0); Mean Corpuscular HGB Conc 35.5 g/dL (32-36); Mean Corpuscular Hemoglobin 31.7 pg (27.0-31.0); Mean Corpuscular Volume 89.4 fL (78.0-102.0); Mean Platelet Volume 10.4 fl (8.7-11.0); Monocytes Absolute Auto 0.58 K/mm3 (0.10-0.90); Monocytes Percent Auto 6.6 % (2.0-11.0); Neutrophils Absolute Auto 5.33 K/mm3 (1.70-7.20); Neutrophils Percent Auto 60.6 % (50.0-70.0); Platelet Count Result 171 K/mm3 (150-420); Red Blood Count 4.89 M/mm3 (4.70-6.10); Red Cell Distribution Width 13.2 % (11.6-14.4); White Blood Count 8.8 K/mm3 (4.8-10.8)
[2024-02-27 12:52] LABS: D Dimer 0.47 mg/L (0.19-0.50)
[2024-02-27 12:53] LABS: Anion Gap 9 mmol/L (4-12); Blood Urea Nitrogen 12 mg/dL (7-18); Carbon Dioxide 29 mmol/L (21-32); Chloride 103 mmol/L (98-108); Potassium 3.8 mmol/L (3.5-5.1); Sodium 141 mmol/L (136-145)
[2024-02-27 12:54] LABS: Alanine Aminotransferase 65 U/L (16-63); Albumin Level 3.8 g/dL (3.4-5.0); Alkaline Phosphatase 63 U/L (46-116); Aspartate Amino Transferase 43 U/L (15-37); Bilirubin,Total 0.9 mg/dL (0.00-1.00); CRP < 0.1 mg/dL (0.0-0.9); Calcium 9.2 mg/dL (8.5-10.1); Estimated Glomerular Filt Rate > 60; Glucose 111 mg/dL (70-99); NT Pro B Type Natriuretic Pept 28 pg/mL (0-125); Osmolality Calculated 292 mOsm/kg (285-295); Total Protein 8.4 g/dL (6.4-8.2)
== END 2024-02-27 12:12 | disposition home or self-care (01) ==
PROVIDERS: PCP Internal Medicine; Visit Provider Internal Medicine
DX: R05.9 Cough, unspecified (principal); R06.00 Dyspnea, unspecified; R50.9 Fever, unspecified
CPT/HCPCS: 36415; 71046; 80053; 83880; 85025; 85380; 86140

== ENCOUNTER 2024-02-27 12:45 | Emergency (ER) | payer OTHER, SELFPAY ==
[2024-02-27] VITALS (32 sets, daily range): BP systolic 134–182; BP diastolic 69–97; PULSE 64–85; RESP 15–36; TEMP 36.4–36.8; O2SAT 95–100
--- NOTE | ~2024-02-27 | CT_ITS ---
EXAMINATION: CTA chest abdomen pelvis DATE: 02/27/2024 13:48 INDICATION: Chest pain. TECHNIQUE: Computed tomographic angiography (CTA) of the chest, abdomen, and pelvis was performed wit h 100 mL Omnipaque-350 intravenous contrast. Automated exposure control and iterative reconstruction technique were employed. The dose-length product was 1944.56 mGy-cm. Maximum intensity projection 3D- reconstructions of the aorta and other arteries were constructed by the technologist on a separate wo rkstation. COMPARISON: CT abdomen and pelvis 02/04/2023 FINDINGS: CHEST CTA: The lungs demonstrate minimal atelectasis. No pleural effusion. There is bilateral gynecomastia. The heart size is normal. No pericardial effusion. There is no pulmonary embolus. The aorta is normal in caliber. No dissection. There is mild aortic atherosclerosis. There is mild thoracic spondylosis. The re is mild chronic anterior wedging of multiple vertebral bodies. ABDOMEN AND PELVIS CTA: There is diffuse hepatic steatosis. The gallbladder is distended. There is chronic splenomegaly, like ly secondary to obesity. The pancreas, adrenal glands, and kidneys are normal. There are no dilated l oops of bowel. The tip of the appendix is bulbous and measures 9 mm, which is chronic. There is no si gnificant stenosis of celiac axis, superior mesenteric artery, the renal arteries, or inferior mesent denis artery. There is mild lumbar spondylosis. There is mild chronic height loss of L1 and L2 vertebr al bodies. IMPRESSION: 1. No aortic aneurysm or dissection. 2. Diffuse hepatic steatosis. Reviewed, dictated and finalized at location A.
--- NOTE | 2024-02-27 12:47 | ECG_ITS ---
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 Measurements Intervals [place] Rate: 67 P: 48 NC: 159 QRS: -7 QRSD: 97 T: 29 QT: 407 QTc: 431 Interpretive Statements SINUS RHYTHM MODERATE VOLTAGE CRITERIA FOR LVH, CONSIDER NORMAL VARIANT [MEETS CRITERIA IN ONE OF: R(aVL), S(V1), R(V5), R(V5/V6)+S(V1)] No previous ECG available for comparison Electronically Signed On 02-28-2024 14:11:46 CDT by Dragan Walton M.D.
--- NOTE | 2024-02-27 12:55 | ED.CHESTPAIN ---
HPI - Chest Pain General Chief Complaint: Chest Pain Stated Complaint: chest pressure Time Seen by Provider: 02/27/24 12:50 Source: patient and family Mode of arrival: ambulatory Limitations: no limitations History of Present Illness HPI narrative: patient is a 58-year-old male with some chest pain / pressure for the past 2 days. More so today he started having this after getting a breathing treatment for shortness of breath at his primary doctor's office. They sent him for labs and a chest x-ray. I reviewed the studies done so far and there is no acute process. He presents to the ER with chest pain pressure today. He is diaphoretic. He is anxious. MD complaint: chest pain and chest heaviness Onset (ago): day(s) (2) Timing of current episode: episodic Prior episodes: No Onset: during rest and awoke with symptoms Pain location: substernal and left chest Pain radiation: none Severity: moderate Pain scale (0-10): 5 Quality: tightness, heaviness and sharp Relieving factors: nothing Exacerbating factors: stress Associated symptoms: diaphoresis Treatment prior to arrival: none Risk Factors Coronary artery disease risk factors: hypertension Thoracic aortic dissection risk factors: none Related Data Home Medications Medication Instructions Recorded Confirmed allopurinol 300 mg tablet 300 mg PO DAILY 06/27/22 04/01/23 irbesartan 300 mg tablet 300 mg PO DAILY 06/28/22 04/01/23 divalproex 500 mg tablet,extended 500 mg PO DAILY 07/15/22 04/01/23 release 24 hr memantine 5 mg tablet 10 mg PO BID 07/15/22 04/01/23 rizatriptan 10 mg tablet 10 mg PO PRN 07/15/22 04/01/23 ubrogepant 100 mg tablet (Ubrelvy) 100 mg PO PRN 07/15/22 04/01/23 baclofen 10 mg tablet 10 mg PO BID 12/05/22 04/01/23 duloxetine 30 mg capsule,delayed 60 mg PO BID 12/05/22 04/01/23 release meloxicam 7.5 mg tablet 7.5 mg PO BID 12/05/22 04/01/23 prochlorperazine maleate 10 mg 10 mg PO DAILY 12/05/22 04/01/23 tablet quetiapine 100 mg tablet 100 mg PO DAILY 12/05/22 04/01/23 Allergies Allergy/AdvReac Type Severity Reaction Status Date / Time meperidine Allergy Severe Anaphylactic Verified 02/27/24 13:00 Shock morphine AdvReac Mild Nausea and Verified 02/27/24 13:00 Vomiting Review of Systems Review of Systems: All systems reviewed & are unremarkable except as noted in HPI and below Constitutional: Constitutional: Reports no additional constitutional complaints Eyes: Eyes: Reports no additional eye complaints ENT: Reports system reviewed and no additional complaints, except as documented Cardiovascular: Cardiovascular: Reports no additional cardiovascular complaints Respiratory: Respiratory: Reports no additional respiratory complaints Gastrointestinal: Gastrointestinal: Reports no additional gastrointestinal complaints Genitourinary: Genitourinary: Reports no additional male genitourinary complaints Musculoskeletal: Musculoskeletal: Reports no additional musculoskeletal complaints Integumentary/Breasts: Skin/Breast: Reports system reviewed and no additional complaints, except as docu Neurologic: Reports system reviewed and no additional complaints, except as documented Psychiatric: Psychiatric: Reports no additional psychiatric complaints Endocrine: Endocrine: Reports no additional endocrine complaints Hematologic/Lymphatic: Hematologic/Lymphatic: Reports no additional hematologic/lymphatic complaints Allergic/Immunologic: Allergic/Immunologic: Reports no additional allergic/immunologic complaints PMFSH Past Medical History Medical History Chronic GERD Depression with anxiety Family history of colon cancer in mother Gout Hypertension Left renal stone Obesity BMI 57.4 Obstructive sleep apnea Repeated concussion of brain Seizure disorder Seizure disorder Surgical History Surgical History H/O cervical spine
[2024-02-27 13:10] LABS: Partial Thromboplastin Time 23.7 Sec (23.9-30.70); Prothrombin Time 10.9 Seconds (9.50-12.1)
[2024-02-27] MEDS: NITROGLYCERIN SL 0.4 MG TABLET SUBLINGUAL (13:10)
[2024-02-27] MEDS: LORazepam INJ (*CRX) 2 MG/ML VIAL 0.5 MG IV PUSH (13:23)
[2024-02-27 13:26] LABS: Troponin I 5.3 ng/L (0.00-60.4)
[2024-02-27] MEDS: fentaNYL CITRATE INJ (*CRX) 100 MCG/2 ML VIAL 50 MCG IV PUSH (14:02)
--- NOTE | 2024-02-27 14:22 | PC.NURSE ---
Patient having excruciating pain to his bilateral lower legs due to chronic issues. Patient assisted to side of the bed to stretch out legs. Patient sat on side of bed for several minutes without any issue then became very drowsy and had decreased level of alertness. ERP at beside gave verbal order to give 1mg of Narcan at this time due to patient being over sedated.
[2024-02-27] MEDS: NALOXONE HCL INJ 2 MG/2 ML AMP (14:26)
--- NOTE | 2024-02-27 14:27 | PC.NURSE ---
Patient is more alert and awake now following narcan administration.
[2024-02-27] MEDS: methylPREDNISolone SOD SUCC 125 MG VIAL IV PUSH (14:34)
--- NOTE | 2024-02-27 14:43 | ECG_ITS ---
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 Measurements Intervals [place] Rate: 73 P: -4 ND: 162 QRS: 51 QRSD: 90 T: -3 QT: 411 QTc: 455 Interpretive Statements SINUS RHYTHM NONSPECIFIC T-WAVE ABNORMALITY Compared to ECG 02/27/2024 12:52:46 No significant changes Electronically Signed On 02-28-2024 14:12:15 CDT by Dragan Walton M.D.
[2024-02-27 15:30] LABS: Troponin I 5.2 ng/L (0.00-60.4)
== END 2024-02-27 16:06 | disposition home or self-care (01) ==
PROVIDERS: Emergency Provider Emergency Medicine; PCP Internal Medicine
DX: R07.89 Other chest pain (principal); M54.32 Sciatica, left side; I10 Essential (primary) hypertension; G40.909 Epilepsy, unspecified, not intractable, without status epilepticus; M10.9 Gout, unspecified; G47.33 Obstructive sleep apnea (adult) (pediatric); K21.9 Gastro-esophageal reflux disease without esophagitis; F41.8 Other specified anxiety disorders
CPT/HCPCS: 36415; 71275; 74174; 84484; 85610; 85730; 93005; 96374; 96375; 99284; A9270; J2060; J2310; J2919; J3010; Q9967

== ENCOUNTER 2024-04-24 10:11 | Emergency (ER) | payer OTHER, SELFPAY ==
--- NOTE | ~2024-04-24 | CT_ITS ---
CT brain wo con Ordering provider: Jaime Murray MD History: 58 years Male with . Headache, vision loss . Comparison: April 01, 2023 Technique: CT of the head without contrast. Radiation reduction technique utilized. DLP is 681 mGy-cm. FINDINGS: BRAIN PARENCHYMA AND CSF SPACES: No midline shift, mass effect or hemorrhage. The brain parenchyma a nd CSF spaces are otherwise normal. VISUALIZED PARANASAL SINUSES: Well aerated. MASTOIDS: Well aerated. BONES: The bones appear intact. SOFT TISSUES: Visualized nasopharynx is normal. Superficial soft tissues are normal. IMPRESSION: No acute intracranial findings. Reviewed, dictated and finalized at location A.
[2024-04-24 10:13] VITALS: BP 159/90; PULSE 83; RESP 18; TEMP 36.4; O2SAT 98
[2024-04-24] MEDS: SODIUM CHLORIDE 0.9% IV 1,000 ML 999 ML IV CONT (12:25)
[2024-04-24] MEDS: diphenhydrAMINE HCl INJ 50 MG/ML VIAL 25 MG IM (12:26)
[2024-04-24] MEDS: ACETAMINOPHEN 500 MG TABLET 1000 MG PO (12:26)
[2024-04-24] MEDS: PROCHLORPERAZINE EDISYLATE 10 MG/2 ML VIAL IM (12:27)
[2024-04-24 12:42] VITALS: BP 133/86; PULSE 71; RESP 16; TEMP 36.6; O2SAT 97
--- NOTE | 2024-04-24 12:53 | ECG_ITS ---
Test Date: 2024-04-24 13:03:29 Measurements Intervals [place] Rate: 70 P: 58 NM: 161 QRS: -11 QRSD: 93 T: 29 QT: 390 QTc: 421 Interpretive Statements SINUS RHYTHM POSSIBLE LEFT VENTRICULAR HYPERTROPHY EARLY PRECORDIAL R/S TRANSITION MINIMAL Q WAVES- HIGH LATERAL LEADS NONSPECIFIC T-WAVE ABNORMALITY BASELINE ARTIFACT- I, II, III, AVR, AVL, V5 BORDERLINE ECG Compared to ECG 02/27/2024 14:58:33 No significant changes Electronically Signed On 04-24-2024 13:18:31 CDT by Morris Hurd D.O.
--- NOTE | 2024-04-24 14:06 | ED.GENADULT ---
HPI - General Adult General Chief complaint: Headache Stated complaint: headaches, loss of vision in L eye Time Seen by Provider: 04/24/24 11:04 History of Present Illness HPI narrative: This is a 58-year-old male with history of hypertension and chronic traumatic encephalopathy syndrome presenting for headache and loss of vision in his left eye. The headaches are chronic and have been going on for 1 month. However today at 4:00 a.m. he lost visual acuity in his left eye. He can only see what he describes as ?blobs?. Patient notes that he has had vision changes with headaches in the past but they have never been sustained. Related Data Home Medications Medication Instructions Recorded Confirmed allopurinol 300 mg tablet 300 mg PO DAILY 06/27/22 04/01/23 irbesartan 300 mg tablet 300 mg PO DAILY 06/28/22 04/01/23 divalproex 500 mg tablet,extended 500 mg PO DAILY 07/15/22 04/01/23 release 24 hr memantine 5 mg tablet 10 mg PO BID 07/15/22 04/01/23 rizatriptan 10 mg tablet 10 mg PO PRN 07/15/22 04/01/23 ubrogepant 100 mg tablet (Ubrelvy) 100 mg PO PRN 07/15/22 04/01/23 baclofen 10 mg tablet 10 mg PO BID 12/05/22 04/01/23 duloxetine 30 mg capsule,delayed 60 mg PO BID 12/05/22 04/01/23 release meloxicam 7.5 mg tablet 7.5 mg PO BID 12/05/22 04/01/23 prochlorperazine maleate 10 mg 10 mg PO DAILY 12/05/22 04/01/23 tablet quetiapine 100 mg tablet 100 mg PO DAILY 12/05/22 04/01/23 Allergies Allergy/AdvReac Type Severity Reaction Status Date / Time meperidine Allergy Severe Anaphylactic Verified 02/27/24 13:00 Shock morphine AdvReac Mild Nausea and Verified 02/27/24 13:00 Vomiting PMFSH Past Medical History Medical History Chronic GERD Depression with anxiety Family history of colon cancer in mother Gout Hypertension Left renal stone Obesity BMI 57.4 Obstructive sleep apnea Repeated concussion of brain Seizure disorder Seizure disorder Surgical History Surgical History H/O cervical spine surgery H/O rhinoplasty History of tonsillectomy Total knee replacement status Family History Family History Mother Colon cancer Mitral valve replaced Hypertension Macular degeneration Father Malignant neoplasm of prostate Social History Social History Social History: The patient lives with his and has 1 child. 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 His is the durable power attorney at law for healthcare. The patient is lifelong nonsmoker. He does not use any alcohol marijuana or illicit drugs. Code status full code Smoking status: Never smoker Alcohol intake: current Drinks per week: 1 Alcohol use details: 2 drinks monthly Substance use: never Substance use type: does not use Living arrangements: with family Spiritual care concerns: No Exam Narrative: APPEARANCE: No apparent distress. Head: atraumatic. NOSE: Atraumatic NECK: Trachea midline RESPIRATORY: No increased rate of breathing CARDIOVASCULAR: RRR, ABDOMINAL: Non-distended MUSCULOSKELETAl: No obvious deformities NEURO: Alert. Cranial nerves 2-12 grossly intact. Sensation light touch, motor function cerebellar function intact for 4 extremities. Gait exam was normal. SKIN:: Warm, dry. Normal color PSYCHIATRIC: Normal affect EYES: EOMI, no afferent pupillary ,defect No visual field deficits, IOP R 25, L 15 No fluorescein uptake. Funduscopy unsuccessful. Ocular US w/o clear evidence of retinal detachment. Course Vital Signs Vital signs: Vital Signs Temperature 97.6 F 04/24/24 10:13 Pulse Rate 83 04/24/24 10:13 Respiratory Rate 18 04/24/24 10:13 Blood Pressure 159/90 H 04/24/24 10:13 Pulse Oximetry 98
[2024-04-24 14:54] VITALS: BP 145/81; PULSE 78; RESP 18; TEMP 36.6; O2SAT 99
== END 2024-04-24 14:56 | disposition short-term general hospital (02) ==
PROVIDERS: Emergency Provider Emergency Medicine; PCP Internal Medicine
DX: H54.62 Unqualified visual loss, left eye, normal vision right eye (principal); I10 Essential (primary) hypertension; G40.909 Epilepsy, unspecified, not intractable, without status epilepticus; G47.33 Obstructive sleep apnea (adult) (pediatric); E66.9 Obesity, unspecified; Z68.43 Body mass index [BMI] 50.0-59.9, adult; M10.9 Gout, unspecified; K21.9 Gastro-esophageal reflux disease without esophagitis; F07.81 Postconcussional syndrome; F41.8 Other specified anxiety disorders; Z96.659 Presence of unspecified artificial knee joint; Z87.442 Personal history of urinary calculi; Z79.899 Other long term (current) drug therapy; R94.31 Abnormal electrocardiogram [ECG] [EKG]
CPT/HCPCS: 70450; 93005; 96360; 96361; 96372; 99284; A9270; J0780; J1200; J7030

== ENCOUNTER 2024-05-10 12:57 | Emergency (ER) | payer MEDICARE, SELFPAY ==
--- NOTE | ~2024-05-10 | CT_ITS ---
EXAMINATION: CT brain wo con DATE: 05/10/2024 13:37 INDICATION: Head injury. Headache. TECHNIQUE: Computed tomography (CT) of the head was performed without intravenous contrast. The mA wa s adjusted according to patient size. Iterative reconstruction technique was employed. The dose-lengt h product was 605.33 mGy-cm. COMPARISON: Head CT 04/24/2024 FINDINGS: There is no intracranial hemorrhage, acute infarction, or abnormal intracranial mass lesion . The ventricles are normal in size. The orbits are normal. There is mild mucosal thickening in the p aranasal sinuses. The mastoid air cells are normal. IMPRESSION: 1. Normal brain. Reviewed, dictated and finalized at location A. IMPRESSION: 1. Normal brain.
[2024-05-10 12:57] VITALS: BP 170/94; PULSE 88; RESP 20; TEMP 36.3; O2SAT 97
[2024-05-10 13:19] VITALS: RESP 18; O2SAT 96
[2024-05-10] MEDS: KETOROLAC (*BKC) 60 MG/2 ML VIAL IM (13:27)
[2024-05-10 13:40] VITALS: O2SAT 97
[2024-05-10 13:45] VITALS: RESP 16; O2SAT 96
[2024-05-10 14:00] VITALS: BP 145/88; PULSE 89; RESP 16; O2SAT 96
[2024-05-10] MEDS: METOCLOPRAMIDE HCL INJ 10 MG/2 ML VIAL IM (14:03)
[2024-05-10] MEDS: MORPHINE SULFATE (*CRX) 4 MG/ML INJ IM (14:03)
--- NOTE | 2024-05-10 14:21 | ED.HA ---
HPI - Headache General Chief Complaint: Headache Stated Complaint: headache Source: patient and family Mode of arrival: ambulatory Limitations: no limitations History of Present Illness HPI Narrative: this is a 58-year-old male with a history of chronic traumatic encephalopathy has had a headache for the last couple weeks with some no relief with gnir-xma-sajegna pain medication. Patient did have a appointment with Neurology/ cage unloader this past Tuesday but was unable to take him at that time. There is currently no nausea vomiting no neck stiffness no fever chills vision is affected but is chronic with no worsening in his vision. Patient rates his pain about a 7/10 and has not had relief with some current medication or [id number] medication. MD elicited complaint: headache Onset description: gradually Severity: moderate Pain scale (0-10): 7 Related Data Home Medications Medication Instructions Recorded Confirmed duloxetine 30 mg capsule,delayed 60 mg PO BID 12/05/22 05/10/24 release Allergies Allergy/AdvReac Type Severity Reaction Status Date / Time meperidine Allergy Severe Anaphylactic Verified 05/10/24 13:09 Shock morphine AdvReac Mild Nausea and Verified 05/10/24 13:09 Vomiting Review of Systems Review of Systems: All systems reviewed & are unremarkable except as noted in HPI and below PMFSH Past Medical History Medical History Chronic GERD Depression with anxiety Family history of colon cancer in mother Gout Hypertension Left renal stone Obesity BMI 57.4 Obstructive sleep apnea Repeated concussion of brain Seizure disorder Seizure disorder Surgical History Surgical History H/O cervical spine surgery H/O rhinoplasty History of tonsillectomy Total knee replacement status Family History Family History Mother Colon cancer Mitral valve replaced Hypertension Macular degeneration Father Malignant neoplasm of prostate Social History Social History Social History: The patient lives with his and has 1 child. 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 His is the durable power rectifying attendant for healthcare. The patient is lifelong nonsmoker. He does not use any alcohol marijuana or illicit drugs. Code status full code Smoking status: Never smoker Alcohol intake: current Drinks per week: 1 Alcohol use details: 2 drinks monthly Substance use: never Substance use type: does not use Living arrangements: with family Spiritual care concerns: No Exam Const: General: healthy appearing, no acute distress and alert Orientation/consciousness: patient oriented x3 Limitations: no limitations HENMT: Head: normal to inspection Eyes: Conjunctivae: conjunctivae normal Pupils: Equal, round and reactive pupils present EOM: EOMs intact bilaterally Neck: Neck: normal visual inspection Chest: Chest palpation & inspection: normal inspection of the chest Resp: Effort & Inspection: normal respiratory effort Auscultation: clear to auscultation bilaterally Cardio: Rate: regular rate Rhythm: regular rhythm GI: GI Palp: Yes Soft to palpation Skin: General skin exam: normal color Rashes: no rashes Neuro: General: patient oriented x3 and moves all extremities Extrem: General: normal to inspection and no clubbing, cyanosis or edema Course Course Emergency Course: Patient received 60mg IM Toradol with some cording patient no relief of his headache, I had additional 4mg IM morphine along with Reglan which has improved his pain level, CT scan performed shows no acute intracranial abnormalities. Vital Signs Vital signs: Vital Signs Temperature 36.3 C L
[2024-05-10 14:40] VITALS: BP 159/94; PULSE 70; RESP 18; TEMP 36; O2SAT 97
== END 2024-05-10 14:40 | disposition home or self-care (01) ==
PROVIDERS: Emergency Provider Emergency Medicine; PCP Internal Medicine
DX: R51.9 Headache, unspecified (principal); I10 Essential (primary) hypertension; Z79.899 Other long term (current) drug therapy
CPT/HCPCS: 70450; 96372; 99284; J1885; J2270; J2765

== ENCOUNTER 2024-12-11 11:29 | Emergency (ER) | payer MEDICARE, SELFPAY ==
[2024-12-11 11:31] VITALS: BP 169/85; PULSE 72; RESP 18; TEMP 36.4; O2SAT 98
--- NOTE | 2024-12-11 12:35 | ED_ITS ---
HPI - Headache General Chief Complaint: Headache Stated Complaint: Migraine x 6 days Time Seen by Provider: 12/11/24 11:39 Source: patient and family () Mode of arrival: ambulatory Limitations: no limitations History of Present Illness HPI Narrative: 59-year-old male presents with any 6 days. He a history and aches secondary to ELVIE (traumatic encephalopathy syndrome) for which he sees a neurologist in [place]. States he has been told he has had more than a dozen concerned concussions possibility more than 100 others. His neurologist has told him that due to the damage even minor things like jerking his head while sneezing can set off or exacerbate his headaches. He has already tried the medications he is prescribed which include Ubrelvy, diclofenac , risotriptan and his daily prophylactic quelipta (for which the dose was recently doubled by neurologist) without any relief. He states that headache is primarily frontal and had been worse on left but now worse on right. The changing bear metric pressure recent seems to have also affected and or been a trigger. No nausea or vomiting. Slurred speech, altered mental status unilateral. No weakness. Denies any trauma anticoagulation fevers, chills. No photophobia or phonophobia. In fact he tries to listen to music during episodes because this helps diminish the intensity of his chronic tinnitus that is at baseline. He states he has some eye pain but he notes that he has problems with this at baseline and this has been a chronic ongoing issue for which he has previously been transfer to [facility] and seen Ophthalmology. He states his left eye vision is kennedy and blurred his right has issues with an aura (previously had to be transferred to [facility] because of issues with left eye). Has had extensive imaging and even saw Ophthalmology in the past week or two who felt this was not an issue with the eye. Has a referral to see a neuro associate director qa but no appointment scheduled yet as the office hasn't called back. In sum, No acute issues with the eyes. Lives with who does not similar symptoms; no other sick contacts. No history of diabetes mellitus. Related Data Home Medications ?Medication ?Instructions ?Recorded ?Confirmed ?Last Taken ?Type duloxetine 30 mg capsule,delayed 60 mg PO BID 12/05/22 05/10/24 Unknown History release Allergies Allergy/AdvReac Type Severity Reaction Status Date / Time meperidine Allergy Severe Anaphylactic Verified 12/11/24 11:30 Shock morphine AdvReac Mild Nausea and Verified 12/11/24 11:30 Vomiting PMFSH Past Medical History Medical History (Updated 12/12/24 @ 05:30 by Britta Lara MD) Tinnitus chronic Vision abnormalities chronic 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 He typically stays with his mother who is dealing with colon cancer. His is the durable power claim attorney for healthcare. The patient is lifelong nonsmoker. He does not use any alcohol marijuana or illicit drugs. 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 HEAD: Normocephalic, atraumatic. EYES: Non injected, non icteric. PERRL. ENT: Nares clear, no rhinorrhea or epistaxis. NECK: Supple. No meningismus. Demonstrates the ability to flex extend and perform rotational movement at the neck. CHEST: Speaking in full sentences. No respiratory distress. HEART: Regular rate and rhythm. . ABDOMEN: Morbidly obese but Soft, nondistended. EXTREMITIES: Normal range of motion. Moves all extremities x4. SKIN: Warm, dry, no rash. NEURO: No focal deficits. Alert and oriented x3. Speaks clearly without aphasia or dysarthria. No abnormal movements appreciated. Recalls and able to provide health history with detail. Follows commands. Sensation intact to touch across distribution of face symmetrically x3. PSYCH: Normal mood and affect. Course Vital Signs Vital signs: Vital Signs Temperature 97.6 F 12/11/24 11:31 Pulse Rate 72 12/11/24 11:31 Respiratory Rate 18 12/11/24 11:31 Blood Pressure 169/85 H 12/11/24 11:31 Pulse Oximetry 98 12/11/24 11:31 Oxygen Delivery Room Air 12/11/24 11:31 Temperature 97.9 F 12/11/24 15:00 Pulse Rate 82 12/11/24 15:00 Respiratory Rate 16 12/11/24 15:00 Blood Pressure 142/88 H 12/11/24 15:00 Pulse Oximetry 97 12/11/24 15:00 Oxygen Delivery Room Air 12/11/24 11:31 MDM - Headache MDM Narrative Medical decision making narrative: Patient presents with a headache of 6 days duration. He has a complex history with chronic headaches secondary to a diagnosis traumatic encephalopathy syndrome (ELVIE) for which he sees a neurologist in [place] takes variety of medications including prophylactics and abortive therapies. In the emergency department he is afebrile with vital signs notable for hypertension. After obtaining the patient's history and performing a physical exam, the headache is most likely due to benign/chronic etiology. The extensive neurological examination is non-focal, there are no high-risk features on history, and the patient is non-toxic appearing. The Ddx for the patient's headache is tension headache, migraine, or other headache of non-emergent etiology including his known chronic ELVIE headache semiology which he states this does feel like although the duration has become intolerable. Unlikely SAH: headache is non-thunderclap. Headache is non-maximal at onset and similar to headaches in the past. Unlikely subdural/epidural hematoma: no history of trauma, no anticoagulation Unlikely meningitis: afebrile, no meningismus, no photophobia Unlikely temporal arteritis: pt <60 years old. Unlikely acute angle glaucoma: PERRL; eye pain is chronic w/ no acute changes; No N/V Unlikely carbon monoxide poisoning: no other house members with similar symptoms The patient's headache was treated symptomatically with ketorolac, benadryl, compazine, magnesium and IV fluids. Upon reevaluation, he states his headache has gone from an 8/10 in severity to 4/10 in severity which is acceptable to him given the chronicity and severity of his symptoms at baseline. He feels comfortable with and is ready for discharge. Not in need of work notice he is on disability. Will be discharged with strict return precautions and instructions to follow up with their PCP and/or neurologist. He verifies understanding and is in agreement. Given a 1 time dose prednisone to reduce the recurrence/bounce-back headache phenomenon. Discharge Plan Discharge Clinical Impression: Cephalalgia Patient Disposition: Home, Self-Care Condition: Stable Instructions: Antibiotic Form, General Headache (ED) Additional Instructions: Follow-up with primary care physician and your neurologist in [place]. Return to the emergency department any new or worsening symptoms. Continue taking all of your medications as prescribed. Patient Language: Greenlandic Prescriptions: No Action duloxetine 30 mg capsule,delayed release(DR/EC) 60 mg PO BID oxycodone-acetaminophen [Percocet] 5-325 mg tablet 1 tablet PO Q6H PRN (Reason: pain) Qty: 10 0RF Follow-up/Referrals: Tyrel Delcid MD [Primary Care Provider] - Time of Disposition: 14:46
--- OUTSIDE RECORDS SUMMARY | 2024-12-11 13:09 | XMS_ITS | Clinical Summary ---
Author Organization [facility] Address [address] [place] [address] Care Team Providers Care Plate Worker Name Role Phone Tyrel Delcid MD Primary Care Provider [phone] Allergies Active Allergy Reactions Criticality Noted Date Comments Levofloxacin Rash Medium 05/18/2021 Reaction: Rash, Reaction: Rash, Meperidine Anaphylaxis,Unknown High 02/27/2013 Morphine Nausea and Vomiting,Unknown High 02/27/2013 Nausea and vomiting per patient, 10/24/23 Oxycodone-Acetaminophen Unknown 09/30/2015 Makes him angry Medications allopurinol (ZYLOPRIM) 300 MG tablet Take 1 tablet (300 mg total) by mouth daily. Active SUMAtriptan (IMITREX) 100 MG tablet Take 1 tablet (100 mg total) by mouth 2 (two) times daily as needed. 09/08/2017 Active amantadine (SYMMETREL) 100 MG tablet Take 1 tablet (100 mg total) by mouth 2 (two) times daily. 01/10/2023 Active memantine (NAMENDA) 10 MG tablet Take 1 tablet (10 mg total) by mouth 2 (two) times daily. Active irbesartan (AVAPRO) 300 MG tablet Take 1 tablet (300 mg total) by mouth daily. Active ubrogepant (UBRELVY) 100 MG tablet Take 1 tablet (100 mg total) by mouth 2 (two) times daily as needed for Migraine. Max of 2 tablets (200 mg) in 24 hours Active rizatriptan (MAXALT) 10 MG tablet Take 1 tablet (10 mg total) by mouth 3 (three) times daily as needed for Migraine. May repeat in 2 hours if needed Active divalproex ER (DEPAKOTE) 500 MG 24 hr tablet Take 1 tablet (500 mg total) by mouth. 07/06/2023 Active Active Problems Problem Noted Date Diagnosed Date Acetabular labrum tear, right, initial encounter 01/17/2024 Loose body of right knee 10/18/2023 Other tear of lateral menisc us of right knee as current injury, subsequent encounter 10/18/2023 Trochanteric bursitis of right hip 05/10/2023 Family History Medical History Relation Comments Cancer Father Cancer Mother Relation Status Comments Father Mother Social History Tobacco Use Types Packs/Day Years Used Date Smoking Tobacco: Never Smokeless Tobacco: Never Tobacco Cessation:Counseling Given: No Alcohol Use Standard Drinks/Week Comments Not Currently 0 (1 standard drink = 0.6 oz pur e alcohol) Sex and Gender Information Value Date Recorded Sex Assigned at Not on file Legal Sex Male 5:46 PM [employer]ITION[employer] Gender Identity Not on file Sexual Orientation Not on file Last Filed Vital Signs Vital Sign Reading Time Taken Comments Blood Pressure 154/78 10/24/2023 4:12 PM [employer] Pulse 86 10/24/2023 4:12 PM [employer] Temperature 36.7 C (98 F) 10/24/2023 4:12 PM [employer] Respiratory Rate 16 10/24/2023 4:12 PM [employer] Oxygen Saturation 97% 10/24/2023 4:12 PM [employer] Inhaled Oxygen Concentration - - Weight 167.8 kg (370 lb) 01/17/2024 9:07 AM CDT Height 175.3 cm (5' 9 ) 01/17/2024 9:07 AM CDT Body Mass Index 54.64 01/17/2024 9:07 AM CDT Plan of Treatment Health Maintenance Due Date Last Done Comments Colorectal Cancer Screening Colonoscopy (10 Years) 1966 Annual Physical 1969 Hepatitis C 1984 DTaP, Tdap and Td Vaccines (1 - Tdap) 1985 Hepatitis B Vaccines (1 of 3 - 19+ 3-dose series) 1985 Zoster Vaccines (1 of 2) 2016 COVID-19 Vaccine ( - season) 2024 08/30/2021, 08/07/2021 Influenza Adult (#1) 2024 07/06/2022, 07/24/2021, 06/26/2019, Additional history exists Meningococcal B Vaccine Aged Out No l onger eligible based on patient's age to complete this topic Meningococcal Vaccine Aged Out No carline osmar eligible based on patient's age to complete this topic Pneumococcal Vaccine: Pediatrics (0 to 5 Years) and At-Risk Patients (6 to 64 Years) Aged Out No longer eligible based on patient's age to complete this topic RSV Immunizations Under 20 Months Aged Out No longer eligible based on patient's age to complete this topic Insurance [facility] Care Teams Plate Worker Relationship Specialty Start Date End Date Tyrel Delcid MD [address] [place] [address] PCP - General INTERNAL MEDICINE 04/08/22
--- OUTSIDE RECORDS SUMMARY | 2024-12-11 13:09 | XMS_ITS | Encounter Summary ---
Author Organization [facility] Address [facility] [place] [address] Care Team Providers Care Chair Mender Name Role Phone Tyrel Delcid MD Primary Care Provider [phone] Encounter Details Date Type Department Care Team (Late st Contact Info) Description 10/12/2023 Izooblet Message Enc [facility] [address] [address] Dallas Campbell MD [address] [place] [phone] Visit Follow Up Social History Tobacco Use Types Packs/Day Years Used Date Smoking Tobacco: Never Smokeless Tobacco: Never Alcohol Use Standard Drinks/Week Comments Not Currently 0 (1 standard drink = 0.6 oz pur e alcohol) Sex and Gender Information Value Date Recorded Sex Assigned at Not on file 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
--- OUTSIDE RECORDS SUMMARY | 2024-12-11 13:09 | XMS_ITS | Encounter Summary ---
Author Organization [facility] Address [facility] [place] [address] Care Team Providers Care Bmet Name Role Phone Tyrel Delcid MD Primary Care Provider [phone] Encounter Details Date Type Department Care Team (Late st Contact Info) Description 05/10/2023 Funderat Message Enc [facility] [address] [address] Dallas Campbell MD [address] [place] [id number] Visit Follow Up Social History Tobacco Use Types Packs/Day Years Used Date Smoking Tobacco: Never Smokeless Tobacco: Never Alcohol Use Standard Drinks/Week Comments Not Currently 0 (1 standard drink = 0.6 oz pur e alcohol) Sex and Gender Information Value Date Recorded Sex Assigned at Not on file 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
--- OUTSIDE RECORDS SUMMARY | 2024-12-11 13:09 | XMS_ITS | Clinical Summary ---
Author Organization [facility] [email or web address] Address [address] [place] [address] Care Team Providers Care Concrete Products Machine Operator Name Role Phone Tyrel Delcid MD Primary Care Provider [phone] Source Comments [facility],non-owned Affiliates and Associated Physician Practices is amultiple site organization consisting of ambulatory clinics and hospital sitesin [place], [place], [place] and [place]. This disclosure is being madepursuant to the Care Everywhere program and may not contain all information available regarding this patient. Last updated 18.[facility] [email or web address] Social History Tobacco Use Types Packs/Day Years Used Date Smoking Tobacco: Never Assessed Sex and Gender Information Value Date Recorded Sex Assigned at Not on file Gender Identity Not on file Sexual Orientation Not on file Plan of Treatment Health Maintenance Due Date Last Done Comments COLOGUARD (AGES 45-75) - COL ON CA SCREENING 1966 COLON MONITORING 1966 COLONOSCOPY - COLON CA SCREENING 1966 CT COLONOGRAPHY - COLON CA SCREENING 1966 Colorectal Cancer Screening 1966 FIT - COLON CA SCREENING 1966 FLEX SIG - COLON CA SCREENING 1966 LIPID TESTING 1966 HIV SCREENING 1981 HEPATITIS C SCREENING 10/31/1984 DTAP/TDAP/TD VACCINES (1 - Tdap) 1985 HEPATITIS B VACCINE (1 of 3 - 19+ 3-dose series) 1985 PNEUMOCOCCAL VACCINE 50+ (1 of 1 - PCV) 2016 ZOSTER VACCINE (1 of 2) 2016 COVID-19 VACCINE (2023-2 5 season) 2024 INFLUENZA VACCINE (#1) 2024 DEPRESSION SCREENING 09/26/2024 HIB VACCINE Aged Out No longer eligi ble based on patient's age to complete this topic HPV VACCINE Aged Out No longer eligi ble based on patient's age to complete this topic MENINGOCOCCAL (Group B) VACC INE SHARED DECISION-MAKING Aged Out No longer eligibl e based on patient's age to complete this topic MENINGOCOCCAL GROUPS A/C/Y/W VACCINE Aged Out No longer eligible b ased on patient's age to complete this topic PNEUMOCOCCAL VACCINE Aged Out No long er eligible based on patient's age to complete this topic Care Teams Concrete Products Machine Operator Relationship Specialty Start Date End Date Tyrel Delcid MD [address] [place] [id number] PCP - General 04/27/22
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
--- OUTSIDE RECORDS SUMMARY | 2024-12-11 13:09 | XMS_ITS | Encounter Summary ---
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
--- OUTSIDE RECORDS SUMMARY | 2024-12-11 13:09 | XMS_ITS | Encounter Summary ---
Author Organization [facility] Address [facility] [place] [address] Care Team Providers Care Media Coordinator Name Role Phone Tyrel Delcid MD Primary Care Provider [phone] Encounter Details Date Type Department Care Team (Late st Contact Info) Description 01/17/2024 AppTankt Message Enc [facility] [place] [address] Cony Pinto, [address] [place] [address] Visit Follow Up Social History Tobacco Use Types Packs/Day Years Used Date Smoking Tobacco: Never Smokeless Tobacco: Never Alcohol Use Standard Drinks/Week Comments Not Currently 0 (1 standard drink = 0.6 oz pur e alcohol) Sex and Gender Information Value Date Recorded Sex Assigned at Not on file Legal Sex Male 5:46 PM [employer] Gender Identity Not on file Sexual Orientation Not on file documented as of this encounter Plan of Treatment Not on file documented as of this encounter Visit Diagnoses Not on filedocumented in this encounter Care Teams Media Coordinator Relationship Specialty Start Date End Date Tyrel Delcid MD [address] [place] [id number] PCP - General INTERNAL MEDICINE 04/08/22 documented as of this encounter
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
[2024-12-11] MEDS: SODIUM CHLORIDE 0.9% IV 1,000 ML 999 ML IV CONT (13:19)
[2024-12-11] MEDS: MAGNESIUM SULF 2 GM/WATER 50ML 2 GM/50 ML BAG IVPB (13:20)
[2024-12-11] MEDS: PROCHLORPERAZINE EDISYLATE 10 MG/2 ML VIAL IV PUSH (13:21)
[2024-12-11] MEDS: KETOROLAC 15 MG/ML VIAL (*BKC) 30 MG IV PUSH (13:21)
[2024-12-11] MEDS: diphenhydrAMINE HCl INJ 50 MG/ML VIAL IV PUSH (13:23)
[2024-12-11] MEDS: predniSONE 20 MG TABLET 40 MG PO (14:57)
[2024-12-11 15:00] VITALS: BP 142/88; PULSE 82; RESP 16; TEMP 36.6; O2SAT 97
== END 2024-12-11 15:03 | disposition home or self-care (01) ==
LOC: ANHED 11:54
PROVIDERS: Emergency Provider Student in an Organized Health Care Education/Training Program; PCP Internal Medicine
DX: R51.9 Headache, unspecified (principal); G40.909 Epilepsy, unspecified, not intractable, without status epilepticus; I10 Essential (primary) hypertension; F41.9 Anxiety disorder, unspecified; F32.A Depression, unspecified; G47.30 Sleep apnea, unspecified; K21.9 Gastro-esophageal reflux disease without esophagitis
CPT/HCPCS: 96365; 96366; 96375; 99284; J0780; J1200; J1885; J3475; J7030; J7512

== ENCOUNTER 2025-01-17 12:22 | Emergency (ER) | payer MEDICARE, SELFPAY ==
[2025-01-17] VITALS (8 sets, daily range): BP systolic 146–175; BP diastolic 77–111; PULSE 86–100; RESP 18–20; TEMP 36.2–36.4; O2SAT 91–96
--- NOTE | ~2025-01-17 | CT_ITS ---
EXAMINATION: CT pelvis wo con DATE: 01/17/2025 13:07 INDICATION: Bilateral hip pain post fall TECHNIQUE: High resolution computed tomography (CT) of the pelvis was performed without intravenous c ontrast. Additional sagittal and coronal reconstructions were performed. Automated exposure control a nd iterative reconstruction technique were employed. The dose-length product was 926.46 mGy-cm. COMPARISON: None FINDINGS: Portion of the peripheral subcutaneous tissues are excluded from the [id number]-gs-[id number] due to patient bod y habitus. Bone alignment is normal. No fracture. Mild osteoarthritis at the bilateral hip and sacroi liac joints. Severe facet osteoarthritis on the right at L5-S1 with moderate facet osteoarthritis on the left and bilaterally at L4-L5. Visualized portions of bowels including the appendix are normal. B ladder is normal. Calcifications in the mildly enlarged prostate which measures 4.7 x 4.2 cm. Small f at-containing left inguinal hernia. IMPRESSION: 1. Degenerative skeletal changes in the pelvis and lower lumbar spine as detailed above. No acute oss eous abnormality. 2. Prostatomegaly. 3. Small fat-containing left inguinal hernia. Reviewed, dictated and finalized at location A. IMPRESSION: 1. Degenerative skeletal changes in the pelvis and lower lumbar spine as detail ed above. No acute osseous abnormality. 2. Prostatomegaly. 3. Small fat-containing left inguinal hernia.
--- NOTE | ~2025-01-17 | XR_ITS ---
XR wrist RT min 3V Ordering provider: Bert Lopez MD History: . wrist and forearm injury . Comparison: None. FINDINGS: BONES: No acute fracture or dislocation. No definite scaphoid fracture. JOINT SPACES: Normal. SOFT TISSUES: Normal. IMPRESSION: No acute osseous abnormality right wrist. Reviewed, dictated and finalized at location A.
--- NOTE | ~2025-01-17 | XR_ITS ---
XR knee LT 3V Ordering provider: Bert Lopez MD History: . knee injury . Comparison: None. FINDINGS: BONES: No acute fracture or dislocation. Total knee arthroplasty. SOFT TISSUES: Normal. IMPRESSION: No acute osseous abnormality left knee. Total knee arthroplasty. Reviewed, dictated and finalized at location A.
--- NOTE | ~2025-01-17 | CT_ITS ---
CT brain wo con Ordering provider: Bert Lopez MD History: 59 years Male with . head injury-POSTERIOR,H/O MULTIPLE CONCUSSIONS . Comparison: May 10, 2024 Technique: CT of the head without contrast. Radiation reduction technique utilized. The dose-length p roduct was 681 mGy-cm. FINDINGS: BRAIN PARENCHYMA AND CSF SPACES: No midline shift, mass effect or hemorrhage. The brain parenchyma a nd CSF spaces are otherwise normal. VISUALIZED PARANASAL SINUSES: Well aerated. MASTOIDS: Well aerated. BONES: The bones appear intact. SOFT TISSUES: Visualized nasopharynx is normal. Superficial soft tissues are normal. IMPRESSION: No acute intracranial findings. Reviewed, dictated and finalized at location A.
--- NOTE | ~2025-01-17 | XR_ITS ---
XR forearm RT 2V Ordering provider: Bert Lopez MD History: . wrist and forearm injury . Comparison: None. FINDINGS: BONES: No acute fracture or dislocation. JOINT SPACES: Normal. SOFT TISSUES: Normal. IMPRESSION: No acute osseous abnormality right forearm. Reviewed, dictated and finalized at location A.
[2025-01-17] MEDS: KETOROLAC (*BKC) 60 MG/2 ML VIAL IM (13:23)
[2025-01-17] MEDS: TETANUS,DIPHTHERIA,AC PERTUSSIS ADULT 0.5 ML (ADACEL) IM (13:23)
[2025-01-17] MEDS: ONDANSETRON HCL ODT 4 MG TABLET PO (13:24)
--- OUTSIDE RECORDS SUMMARY | 2025-01-17 13:31 | XMS_ITS | Encounter Summary ---
Author Organization [facility] Address [facility] [place] [address] Care Team Providers Care Laundry Route Driver Name Role Phone Tyrel Delcid MD Primary Care Provider [phone] Encounter Details Date Type Department Care Team (Late st Contact Info) Description 10/12/2023 Signal360 (formerly Sonic Notify)t Message Enc [facility] [address] [address] Dallas Campbell MD [address] [place] [address] Visit Follow Up Social History Tobacco Use Types Packs/Day Years Used Date Smoking Tobacco: Never Smokeless Tobacco: Never Alcohol Use Standard Drinks/Week Comments Not Currently 0 (1 standard drink = 0.6 oz pur e alcohol) Sex and Gender Information Value Date Recorded Sex Assigned at Not on file Legal Sex Male 5:46 PM ELECTRICIAN'S HELPER Gender Identity Not on file Sexual Orientation Not on file documented as of this encounter Plan of Treatment Not on file documented as of this encounter Visit Diagnoses Not on filedocumented in this encounter Care Teams Laundry Route Driver Relationship Specialty Start Date End Date Tyrel Delcid MD [address] [place] [phone] PCP - General INTERNAL MEDICINE 04/08/22 documented as of this encounter
--- OUTSIDE RECORDS SUMMARY | 2025-01-17 13:31 | XMS_ITS | Encounter Summary ---
Author Organization [facility] Address [facility] [place] [address] Care Team Providers Care Spanish Tutor Name Role Phone Tyrel Delcid MD Primary Care Provider [phone] Encounter Details Date Type Department Care Team (Late st Contact Info) Description 01/17/2024 SimpleGeot Message Enc [place] [address] Cony Pinto, [address] [place] [address] Visit Follow Up Social History Tobacco Use Types Packs/Day Years Used Date Smoking Tobacco: Never Smokeless Tobacco: Never Alcohol Use Standard Drinks/Week Comments Not Currently 0 (1 standard drink = 0.6 oz pur e alcohol) Sex and Gender Information Value Date Recorded Sex Assigned at Not on file Legal Sex Male 5:46 PM 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
--- OUTSIDE RECORDS SUMMARY | 2025-01-17 13:31 | XMS_ITS | Encounter Summary ---
Author Organization [facility] Address [facility] [place] [address] Care Team Providers Care Equipment Operator/Laborer Name Role Phone Tyrel Delcid MD Primary Care Provider [phone] Encounter Details Date Type Department Care Team (Late st Contact Info) Description 05/10/2023 iPositioningt Message Enc [facility] [address] [address] Dallas Campbell MD [address] [place] [address] Visit Follow Up Social History Tobacco Use Types Packs/Day Years Used Date Smoking Tobacco: Never Smokeless Tobacco: Never Alcohol Use Standard Drinks/Week Comments Not Currently 0 (1 standard drink = 0.6 oz pur e alcohol) Sex and Gender Information Value Date Recorded Sex Assigned at Not on file Legal Sex Male 5:46 PM SANDWICH PEDDLER Gender Identity Not on file Sexual Orientation Not on file documented as of this encounter Plan of Treatment Not on file documented as of this encounter Visit Diagnoses Not on filedocumented in this encounter Care Teams Equipment Operator/Laborer Relationship Specialty Start Date End Date Tyrel Delcid MD [address] [place] [phone] PCP - General INTERNAL MEDICINE 04/08/22 documented as of this encounter
--- OUTSIDE RECORDS SUMMARY | 2025-01-17 13:31 | XMS_ITS | Clinical Summary ---
Author Organization [facility] Address [address] [place] [address] Care Team Providers Care Electrolysis Engineer Name Role Phone Tyrel Delcid MD Primary Care Provider [phone] Allergies Active Allergy Reactions Criticality Noted Date [...] on file Legal Sex Male 5:46 PM ACID PURIFICATION EQUIPMENT OPERATOR Gender Identity Not on file Sexual Orientation Not on file Last Filed Vital Signs Vital Sign Reading Time Taken Comments Blood Pressure 154/78 10/24/2023 4:12 PM ACID PURIFICATION EQUIPMENT OPERATOR Pulse 86 10/24/2023 4:12 PM ACID PURIFICATION EQUIPMENT OPERATOR Temperature 36.7 C (98 F) 10/24/2023 4:12 PM ACID PURIFICATION EQUIPMENT OPERATOR Respiratory Rate 16 10/24/2023 4:12 PM ACID PURIFICATION EQUIPMENT OPERATOR Oxygen Saturation 97% 10/24/2023 4:12 PM ACID PURIFICATION EQUIPMENT OPERATOR Inhaled Oxygen Concentration - - Weight 167.8 kg (370 lb) 01/17/2024 9:07 AM CDT Height 175.3 cm (5' 9 ) 01/17/2024 9:07 AM CDT Body Mass Index 54.64 01/17/2024 9:07 AM CDT Plan of Treatment Health Maintenance Due Date Last Done Comments Colorectal Cancer Screening Colonoscopy (10 Years) 1966 Annual Physical 1969 Hepatitis C 1984 DTaP, Tdap and Td Vaccines ( 1 - Tdap) 1985 Hepatitis B Vaccines (1 of 3 - 19+ 3-dose series) 1985 Pneumococcal Vaccine: 50+ Years (1 of 1 - PCV) 2016 Zoster Vaccines (1 of 2) 2016 COVID-19 Vaccine ( - 2023-2 5 season) 2024 08/30/2021, 08/07/2021 Meningococcal B Vaccine Aged Out No l onger eligible based on patient's age to complete this topic Meningococcal Vaccine Aged Out No carline osmar eligible based on patient's age to complete this topic RSV Immunizations Under 20 Months Aged Out No longer eligible b ased on patient's age to complete this topic Insurance [facility] Care Teams Electrolysis Engineer Relationship Specialty Start Date End Date Tyrel Delcid MD [address] [place] [address] PCP - General INTERNAL MEDICINE 04/08/22
--- OUTSIDE RECORDS SUMMARY | 2025-01-17 13:31 | XMS_ITS | Clinical Summary ---
Author Organization [facility] Address [address] [place] [address] Care Team Providers Care Ent Consultant Name Role Phone Tyrel Delcid MD Primary Care Provider [phone] Source Comments [facility],non-owned Affiliates and Associated Physician Practices is amultiple site organization consisting of ambulatory clinics and hospital sitesin [place], [place], [place] and [place]. This disclosure is being madepursuant to the Care Everywhere program and may not contain all information available regarding this patient. Last updated 18.[facility] Social History Tobacco Use Types Packs/Day Years Used Date Smoking Tobacco: Never Assessed Sex and Gender Information Value Date Recorded Sex Assigned at Not on file Legal Sex Male 4:37 AM DEVELOPMENT EDITOR Gender Identity Not on file Sexual Orientation [...] VACCINE (1 of 2) 2016 COVID-19 VACCINE (1 2023-2 5 season) 2024 DEPRESSION SCREENING 09/26/2024 INFLUENZA VACCINE (Season Ended) 2025 HIB VACCINE Aged Out No longer eligi [...] patient's age to complete this topic Insurance AETNA AET[employer] Care Teams Ent Consultant Relationship Specialty Start Date End Date Tyrel Delcid MD [address] [place] [address] PCP - General 04/27/22
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
--- OUTSIDE RECORDS SUMMARY | 2025-01-17 13:31 | XMS_ITS | Encounter Summary ---
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
--- NOTE | 2025-01-17 13:32 | ED_ITS ---
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 No other injuries noted rates his pain about an 8/10 no blurry vision currently no headaches. MD Complaint: extremity pain Related Data Home Medications ?Medication ?Instructions ?Recorded ?Confirmed ?Last Taken ?Type duloxetine 30 mg capsule,delayed 60 mg PO BID 12/05/22 05/10/24 Unknown History release Allergies Allergy/AdvReac Type Severity Reaction Status Date / Time meperidine Allergy Severe Anaphylactic Verified 01/17/25 12:53 Shock morphine AdvReac Mild Nausea and Verified 01/17/25 12:53 Vomiting Review of Systems Review of Systems: All systems reviewed & are unremarkable except as noted in HPI and below PMFSH Past Medical History Medical History Tinnitus chronic Vision abnormalities chronic 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 He typically stays with his mother who is dealing with colon cancer. His is the durable power flight information expediter for healthcare. The patient is lifelong nonsmoker. He does not use any alcohol marijuana or illicit drugs. 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 Spiritual care concerns: No Exam Const: General: healthy appearing, no acute distress and alert Nutritional Appearance: well nourished and obese Orientation/consciousness: patient oriented x3 Limitations: no limitations HENMT: Head: normal to inspection Eyes: Conjunctivae: conjunctivae normal Pupils: Equal, round and reactive pupils present EOM: EOMs intact bilaterally Neck: Neck: normal visual inspection, no lymphadenopathy and no meningeal signs Chest: Chest palpation & inspection: normal inspection of the chest Resp: Effort & Inspection: normal respiratory effort Auscultation: clear to auscultation bilaterally Cardio: Rate: regular rate Rhythm: regular rhythm GI: GI Palp: Yes Soft to palpation Auscultation: normal bowel sounds : General: Yes bladder normal to palpation Skin: General skin exam: normal color Rashes: no rashes Wounds: wounds noted Neuro: General: patient oriented x3, moves all extremities, no meningeal signs and no focal motor deficits Extrem: Other: Tenderness right wrist and forearm, tenderness in his left anterior knee and bilateral lateral hips with palpation. Course Course Emergency Course: Patient received 60mg IM Toradol and after reassessment pain level has improved CT scan of the brain x-rays of the right wrist and forearm and left knee were without any acute abnormalities, CT scan of the hip and pelvis with no acute fractures. Vital Signs Vital signs: Vital Signs Temperature 36.2 C L 01/17/25 12:25 Pulse Rate 100 01/17/25 12:25 Respiratory Rate 20 01/17/25 12:25 Blood Pressure 175/100 H 01/17/25 12:25 Pulse Oximetry 96 01/17/25 12:25 Oxygen Delivery Room Air 01/17/25 12:25 Temperature 36.2 C L 01/17/25 12:25 Pulse Rate 100 01/17/25 12:25 Respiratory Rate 20 01/17/25 12:25 Blood Pressure 175/100 H 01/17/25 12:25 Pulse Oximetry 96 01/17/25 12:25 Oxygen Delivery Room Air 01/17/25 12:25 Critical Care Time Critical Care Time Critical Care Time: No Discharge Plan Discharge Clinical Impression: Acute hip pain, bilateral, Knee strain, Right wrist sprain, Head injury Patient Disposition: Home Condition: Stable Instructions: Antibiotic Form, Head Injury (ED), Musculoskeletal Pain (ED) Patient Language: Lebanese Prescriptions: New naproxen 500 mg tablet 500 mg PO BID PRN (Reason: pain) Qty: 20 0RF No Action duloxetine 30 mg capsule,delayed release(DR/EC) 60 mg PO BID oxycodone-acetaminophen [Percocet] 5-325 mg tablet 1 tablet PO Q6H PRN (Reason: pain) Qty: 10 0RF Follow-up/Referrals: Tyrel Delcid MD [Primary Care Provider] - Time of Disposition: 13:38
== END 2025-01-17 14:15 | disposition home or self-care (01) ==
PROVIDERS: Emergency Provider Emergency Medicine; PCP Internal Medicine
DX: S86.812A Strain of other muscle(s) and tendon(s) at lower leg level, left leg, initial encounter (principal); S63.501A Unspecified sprain of right wrist, initial encounter; S09.90XA Unspecified injury of head, initial encounter; I10 Essential (primary) hypertension; Z23 Encounter for immunization; W18.30XA Fall on same level, unspecified, initial encounter
CPT/HCPCS: 70450; 72192; 73090; 73110; 73562; 90471; 90715; 96372; 99284; A9270; J1885

== ENCOUNTER 2025-04-24 17:41 | Emergency (ER) | payer MEDICARE, SELFPAY ==
--- NOTE | ~2025-04-24 | CT_ITS ---
EXAMINATION: CT brain wo con DATE: 04/24/2025 18:30 INDICATION: HI tuesday, CAMACHO, hx of ELVIE . TECHNIQUE: Computed tomography (CT) of the head was performed without intravenous contrast. The mA wa s adjusted according to patient size. Iterative reconstruction technique was employed. The dose-lengt h product was 756.67 mGy-cm. COMPARISON: 01/17/2025, 05/10/2024. FINDINGS: No acute intracranial hemorrhage or extra-axial fluid collection. No hydrocephalus, mass, or herniation. No acute ischemic infarct. Unremarkable dural venous sinus attenuation. No acute osseous abnormality. The aerated spaces are clear. IMPRESSION: No acute intracranial process. Reviewed, dictated and finalized at location K.
--- OUTSIDE RECORDS SUMMARY | 2025-04-24 17:43 | XMS_ITS | Encounter Summary ---
Author Organization [facility] Address [facility] [place] [address] Care Team Providers Care Community Health Advocate Name Role Phone Tyrel Delcid MD Primary Care Provider [phone] Encounter Details Date Type Department Care Team (Late st Contact Info) Description 01/17/2024 TripHobot Message Enc [place] [address] Cony Pinto, [address] [place] [address] Visit Follow Up Social History Tobacco Use Types Packs/Day Years Used Date Smoking Tobacco: Never Smokeless Tobacco: Never Alcohol Use Standard Drinks/Week Comments Not Currently 0 (1 standard drink = 0.6 oz pur e alcohol) Sex and Gender Information Value Date Recorded Sex Assigned at Not on file 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
--- OUTSIDE RECORDS SUMMARY | 2025-04-24 17:43 | XMS_ITS | Clinical Summary ---
Author Organization [facility] Address [address] [address] Care Team Providers Care Carriage Rider Name Role Phone Tyrel Delcid MD Primary Care Provider [phone] Source Comments [facility],non-owned Affiliates and Associated Physician Practices is amultiple site organization consisting of ambulatory clinics and hospital sitesin [place], [place], [place] and [place]. This disclosure is being madepursuant to the Care Everywhere program and may not contain all information available regarding this patient. 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
--- OUTSIDE RECORDS SUMMARY | 2025-04-24 17:43 | XMS_ITS | Patient Health Record ---
Author Organization [facility] As [employer] Address [address] [facility] [address] [place] [address] Support Name Relationship Address Phone GABRIEL LONGORIA Emergency Contact Unknown [phone] GUILLERMO LONGORIA Guarantor Unknown [phone] Reason For Referral No Information Medications Medication SIG (Take, Route, Frequency, Duration) Notes Start Date End Date Status Diclofenac Sodium 75 MG Oral 12/27/2022 Active Memantine HCl 5 MG Oral 12/27/2022 Active Naratriptan HCl 2.5 MG Oral 12/27/2022 Active Meloxicam 7.5 MG Oral 12/27/2022 Ac tive DULoxetine HCl 30 MG Oral 12/27/2022 Active OLANZapine 2.5 MG Oral 12/27/2022 A ctive Ondansetron 8 MG Oral 12/27/2022 Ac tive Ziprasidone HCl 20 MG Oral 12/27/2022 Active Nurtec 75 MG Oral *Reorder from [employer] for eRx and Interaction Alerts* 12/27/2022 Active Irbesartan 300 MG Oral 12/27/2022 A ctive Amantadine HCl 100 MG Oral 12/27/2022 Active Baclofen 10 MG Oral 12/27/2022 Acti ve Allopurinol 300 MG Oral 12/27/2022 Active Rizatriptan Benzoate 10 MG Oral 12/27/2022 Active Ozempic (0.25 or 0.5 MG/DOSE) 2 MG/3ML Subcutaneous *Pick strength-form from [employer] for eRX* 12/27/2022 Active Divalproex Sodium ER 500 MG Oral 12/27/2022 Active HYDROcodone-Acetaminoph en 5-325 MG Oral 12/27/2022 Active traMADol HCl 50 MG Oral 12/27/2022 Active Memantine HCl 10 MG Oral 12/27/2022 Active QUEtiapine Fumarate 100 MG Oral 12/27/2022 Active Metoclopramide HCl 5 MG Oral 12/27/2022 Active Prochlorperazine Maleate 10 MG Oral 12/27/2022 Active Ubrelvy 100 MG Oral *Reorder from [employer] for eRx and Interaction Alerts* 12/27/2022 Active Immunizations Vaccine Route Administration Date Status Comme nts Pfizer Biontech Covid-19 Vac cine 2nd dose Unknown 08/07/2021 Administered Pfizer Biontech Covid-19 Vac cine 2nd dose Unknown 08/30/2021 Administered Plan Of Treatment No Information Insurance Providers Payer Name Payer Address Payer Phone Subscriber Number Group Number Insured Name Patient Relationship to Insured Coverage Start Date Coverage End Date Aetna Ppo [address] [place] ESCOBAR [id number] GUILLERMO LONGORIA Self - patient is the insured Medical (General) History Surgical History Surgery Date(Month/Year) Other orthopedic Tonsilectomy/adenoids
--- OUTSIDE RECORDS SUMMARY | 2025-04-24 17:43 | XMS_ITS | Encounter Summary ---
Author Organization [facility] Address [facility] [place] [address] Care Team Providers Care Grand Jury Deputy Sheriff Name Role Phone Tyrel Delcid MD Primary Care Provider [phone] Encounter Details Date Type Department Care Team (Late st Contact Info) Description 05/10/2023 [email or web address] Message Enc [facility] [address] [address] Dallas Campbell MD [address] [place] [address] Visit Follow Up Social History Tobacco Use Types Packs/Day Years Used Date Smoking Tobacco: Never Smokeless Tobacco: Never Alcohol Use Standard Drinks/Week Comments Not Currently 0 (1 standard drink = 0.6 oz pur e alcohol) Sex and Gender Information Value Date Recorded Sex Assigned at Not on file 

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
--- OUTSIDE RECORDS SUMMARY | 2025-04-24 17:43 | XMS_ITS | Encounter Summary ---
Author Organization 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
--- OUTSIDE RECORDS SUMMARY | 2025-04-24 17:43 | XMS_ITS | Clinical Summary ---
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 Gender Identity Not on file Sexual Orientation Not on file Last Filed Vital Signs Vital Sign Reading Time Taken Comments Blood Pressure 154/78 10/24/2023 4:12 PM MANAGER REGIONAL Pulse 86 10/24/2023 4:12 PM MANAGER REGIONAL Temperature 36.7 C (98 F) 10/24/2023 4:12 PM MANAGER REGIONAL Respiratory Rate 16 10/24/2023 4:12 PM MANAGER REGIONAL Oxygen Saturation 97% 10/24/2023 4:12 PM MANAGER REGIONAL Inhaled Oxygen Concentration - - Weight 167.8 kg (370 lb) 01/17/2024 9:07 AM CDT Height 175.3 cm (5' 9) 01/17/2024 9:07 AM CDT Body Mass Index [...] patient's age to complete this topic Insurance [facility] Care Teams Immunochemist Relationship Specialty Start Date End Date Tyrel Delcid MD [address] [place] [address] PCP - General INTERNAL MEDICINE 04/08/22
--- OUTSIDE RECORDS SUMMARY | 2025-04-24 17:43 | XMS_ITS | Encounter Summary ---
Author Organization [facility] Address [facility] [place] [address] Care Team Providers Care Surface Hydrologist Name Role Phone Tyrel Delcid MD Primary Care Provider [phone] Encounter Details Date Type Department Care Team (Late st Contact Info) Description 10/12/2023 Intuitive Web Solutionst Message Enc [facility] [address] [address] [place] Campbell MD [address] [place] [id number] Visit Follow Up Social History Tobacco Use Types Packs/Day Years Used Date Smoking Tobacco: Never Smokeless Tobacco: Never Alcohol Use Standard Drinks/Week Comments Not Currently 0 (1 standard drink = 0.6 oz pur e alcohol) Sex and Gender Information Value Date Recorded Sex Assigned at Not on file 

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
[2025-04-24 17:48] VITALS: BP 154/92; PULSE 68; RESP 16; TEMP 36.6; O2SAT 98
--- NOTE | 2025-04-24 17:59 | ED_ITS ---
HPI - Headache General Chief Complaint: Headache Stated Complaint: headache Time Seen by Provider: 04/24/25 17:44 Source: patient Mode of arrival: ambulatory Limitations: no limitations History of Present Illness HPI Narrative: Patient is a 59 y/o male who presents to the ED with c/o CAMACHO. Patient reports history of ELVIE (traumatic encephalopathy syndrome) for which he sees a neurologist in [place], [place]. Reports frequent/near daily history of headaches/migraines. Is on rizatriptan and Ubrelvy. Reports he has had a persistent headache over the past 1 week. Has been taking his medications at home without improvement. Reports his head feels like it is in a vice. Reports nausea last night. Denies vomiting. Reports intermittent blurred vision. Denies vision loss. Denies focal numbness or weakness. Denies significant photophobia or phonophobia. Denies fevers. Patient does mention he bumped his head in the middle of the night on Tuesday. Denied LOC. he is not on any anticoagulation. Related Data Home Medications ?Medication ?Instructions ?Recorded ?Confirmed ?Last Taken ?Type duloxetine 30 mg capsule,delayed 60 mg PO BID 12/05/22 05/10/24 Unknown History release Allergies Allergy/AdvReac Type Severity Reaction Status Date / Time meperidine Allergy Severe Anaphylactic Verified 04/24/25 19:10 Shock morphine AdvReac Mild Nausea and Verified 04/24/25 19:10 Vomiting Review of Systems Review of Systems: All systems reviewed & are unremarkable except as noted in HPI. All systems reviewed & are unremarkable except as noted in HPI and below PMFSH Past Medical History Medical History Tinnitus chronic Vision abnormalities chronic 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 He typically stays with his mother who is dealing with colon cancer. His is the durable power mergers and acquisitions attorney for healthcare. The patient is lifelong nonsmoker. He does not use any alcohol marijuana or illicit drugs. 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 HEAD: Normocephalic, atraumatic. EYES: PERRL/EOMI, conjunctivae clear bilaterally. No nystagmus. NECK: Supple. No meningeal signs. RESPIRATORY: Airway patent, respirations nonlabored. Clear to auscultation bilaterally, no rales, rhonchi, wheezing. CARDIOVASCULAR: Regular rate and rhythm without murmurs, rubs, or gallops. Peripheral pulses 2+ and equal bilaterally. MUSCULOSKELETAL: Moves all extremities. No gross deformities. SKIN: Warm, dry, normal color. No rashes. NEURO: A&O X3. Speech clear. Follows commands. CN II-XII grossly intact. Sensati on grossly intact. Steady gait. No ataxic movements. Strength 5/5 in upper and lower extremities bilaterally. Equal public administration professor strength bilaterally. No focal deficits. PSYCHIATRIC: Appropriate mood and affect. Normal interaction. Course Vital Signs Vital signs: Vital Signs Temperature 97.8 F 04/24/25 17:48 Pulse Rate 68 04/24/25 17:48 Respiratory Rate 16 04/24/25 17:48 Blood Pressure 154/92 H 04/24/25 17:48 Pulse Oximetry 98 04/24/25 17:48 Oxygen Delivery Room Air 04/24/25 17:48 Temperature 97.8 F 04/24/25 17:48 Pulse Rate 74 04/24/25 19:58 Respiratory Rate 20 04/24/25 19:58 Blood Pressure 159/74 H 04/24/25 19:58 Pulse Oximetry 95 04/24/25 19:58 Oxygen Delivery Room Air 04/24/25 17:48 MDM - Headache MDM Narrative Medical decision making narrative: Patient presented to ED with 1 week history of persistent headache. History of ELVIE and frequent/daily headaches. Sees neurology. Vital signs are stable upon arrival. Blood pressure is very borderline elevated. Patient's headache was not sudden in onset or maximal in severity. There are no focal neurological deficits on exam. Denying any red flag symptoms. Subarachnoid hemorrhage is felt to be unlikely at this time. CT brain was obtained and unremarkable. There is no history of fever and neck is supple on evaluation without meningeal signs. Meningitis is felt to be unlikely. No traumatic history or signs of trauma on evaluation. No vision changes or ocular signs of acute glaucoma. Patient feeling much better after migraine cocktail. States he feels ready to go home at this time. Patient's headache is felt to be benign cephalgia and reasonable for further outpatient management. Advised patient to follow with PCP and neurology for further evaluation. Given reasons to return. Discharged in stable condition. Medical Records Attestation: I reviewed the patient's medical records. Imaging Data Attestation: I personally reviewed and interpreted this imaging study as follows: Radiologist's impression: ITS Impressions Head CT 04/24/25 18:36 IMPRESSION: No acute intracranial process. Discharge Plan Discharge Clinical Impression: Headache Qualifiers: Headache type: unspecified Headache chronicity pattern: acute headache Intractability: not intractable Qualified Code(s): R51.9 - Headache, unspecified Patient Disposition: Home Condition: Stable Instructions: Antibiotic Form, Migraine Headache (ED), Acute Headache (ED) Additional Instructions: Continue Tylenol and ibuprofen, your home medications as needed for further headache pain. Utilize Zofran as needed for further nausea. Get plenty of rest. Stay well hydrated. Recommend low light/ low stimulus environment, limiting screen time. Follow-up with your primary care doctor and/or neurologist for further evaluation if needed. Return to the ED if you experience worsening or severe pain, severe dizziness, severe vision changes or vision loss, unable to keep down food or drink, passing out, numbness or weakness of arm or leg, or any other symptoms of concern. Patient Language: Sinhala Prescriptions: New ondansetron 4 mg tablet,disintegrating 4 mg PO Q8H PRN (Reason: nausea and vomiting) Qty: 15 0RF No Action duloxetine 30 mg capsule,delayed release(DR/EC) 60 mg PO BID oxycodone-acetaminophen [Percocet] 5-325 mg tablet 1 tablet PO Q6H PRN (Reason: pain) Qty: 10 0RF naproxen 500 mg tablet 500 mg PO BID PRN (Reason: pain) Qty: 20 0RF Follow-up/Referrals: Tyrel Delcid MD [Primary Care Provider] - Time of Disposition: 19:58
[2025-04-24] MEDS: MAGNESIUM SULF 2 GM/WATER 50ML 2 GM/50 ML BAG IVPB (18:48)
[2025-04-24] MEDS: SODIUM CHLORIDE 0.9% IV 1,000 ML 999 ML IV CONT (18:50)
[2025-04-24] MEDS: PROCHLORPERAZINE EDISYLATE 10 MG/2 ML VIAL IV PUSH (18:51)
[2025-04-24] MEDS: dexAMETHasone SOD PHOS INJ 10 MG/ML 1 ML VIAL IV PUSH (18:54)
[2025-04-24] MEDS: ACETAMINOPHEN 500 MG TABLET 1000 MG PO (18:55)
[2025-04-24 18:58] VITALS: BP 170/93; PULSE 73; RESP 20; O2SAT 97
[2025-04-24] MEDS: KETOROLAC 30 MG/ML VIAL (*BKC) IV PUSH (19:02)
[2025-04-24 19:05] VITALS: BP 178/93; PULSE 75; RESP 24; O2SAT 96
[2025-04-24 19:39] VITALS: BP 159/70; PULSE 70; RESP 14; O2SAT 99
--- NOTE | 2025-04-24 19:57 | PC.NURSE ---
Pt. reports improvement in headache. Pt. states he would like to go home. MILTON De Dios notified.
[2025-04-24 19:58] VITALS: BP 159/74; PULSE 74; RESP 20; O2SAT 95
== END 2025-04-24 20:11 | disposition home or self-care (01) ==
PROVIDERS: Emergency Provider Physician Assistant; PCP Internal Medicine
DX: R51.9 Headache, unspecified (principal); I10 Essential (primary) hypertension; G40.909 Epilepsy, unspecified, not intractable, without status epilepticus; G47.33 Obstructive sleep apnea (adult) (pediatric); K21.9 Gastro-esophageal reflux disease without esophagitis; M10.9 Gout, unspecified; F07.89 Other personality and behavioral disorders due to known physiological condition; F41.8 Other specified anxiety disorders; Z87.442 Personal history of urinary calculi; Z96.659 Presence of unspecified artificial knee joint; Z79.899 Other long term (current) drug therapy
CPT/HCPCS: 70450; 96365; 96375; 99284; A9270; J0780; J1100; J1200; J1885; J3475; J7030

== ENCOUNTER 2025-09-06 15:07 | Outpatient (CLI) | payer MEDICARE, SELFPAY ==
--- NOTE | ~2025-09-06 | MR_ITS ---
EXAMINATION: MR brain/brain stem wo con DATE: 09/06/2025 15:33 INDICATION: 59-year-old with migraine. TECHNIQUE: Magnetic resonance imaging (MRI) of the brain and brainstem was performed without intravenous contrast. Images were obtained with flex coil due to large body habitus. Overall quality is less than optimal but acceptable. COMPARISON: MRI dated 01/17/2025. FINDINGS: No acute ischemia on the diffusion sequence. No evidence of intracranial bleed. No chronic ischemic change or demyelinating lesions. No evidence of ventriculomegaly or midline shift. Major vascular structures of the [place] are patent. Moderate, symmetric age-appropriate global atrophy. IMPRESSION: 1. No acute or focal intracranial abnormalities on the MRI examination. No significant change from previous study. Reviewed, dictated and finalized at location T. N CLEANER IMPRESSION: 1. No acute or focal intracranial abnormalities on the MRI examination. No sign ificant change from previous study.
== END 2025-09-06 15:08 | disposition home or self-care (01) ==
DX: R41.89 Other symptoms and signs involving cognitive functions and awareness (principal); R51.9 Headache, unspecified; F39 Unspecified mood [affective] disorder
CPT/HCPCS: 70551